=== PATIENT | male | born 1940 | race African-American/Black ===

== ENCOUNTER 2016-10-17 12:17 | Inpatient (IN) ==
[2016-10-17] MEDS ORDERED: ASPIRIN 300 MG SUPP RECTAL STA (12:46)
--- NOTE | 2016-10-17 12:46 | Emergency Department Note ---
Kelly Bianchi Hilary, am scribing for, and in the presence of, Cheo Antunez MD 12: 39. Harmony Bianchi James D, MD, personally performed the services described in this documentation, ascribed by Gwen Mendoza in my presence, and it is both accurate and complete . Arrival - Arrival Chief Complaint: Weakness Stated Complaint: weakness ED Nursing Triage Note: Brought in per EMS from [facility] for further evaluation of abnormal CT brain- revealing "stroke"--had CT done this am. Was inpatient at [facility] with diagnoses of Cropwell Palsy. +slurred speech-- staff reports is not new. +equal digital photographer/strength to upper and lower extremities. Mode of Arrival: Stretcher Limitations: No Limitations Source: Patient, RN Notes Reviewed Time Seen by Provider: 10/17/16 12:29 - History of Present Illness HPI Narrative: Pt is a 76 y/o male brought to the ED via EMS for further evaluation of abnormal CT brain. Pt had CT done this AM and it revealed a stroke. Was an inpatient at [facility] with diagnoses of Cropwell Palsy. Staff reports slurred speech is not new. Pt denies any pain. No other complaints or problems stated in the ED. Onset (ago): hour(s) Severity: mild Severity scale (1-10): 1 Allergies/Adverse Reactions: Allergies Allergy/AdvReac Type Severity Reaction Status Date / Time acetaminophen [From Tylenol] Allergy Mild RASH Verified 10/17/16 12:25 Penicillins Allergy Mild UNRESPONSIV Verified 10/17/16 12:25 E Home Medications: Home Medications Medication Instructions Recorded Confirmed Type Acyclovir Cap/Tab [Zovirax Cap/Tab] 800 mg PO TID #14 tablet 09/23/16 09/23/16 Rx Aspirin EC Tab 81 mg PO DAILY #30 tablet 09/23/16 09/23/16 Rx Atenolol [Tenormin] 50 mg PO DAILY #30 tablet 09/23/16 09/23/16 Rx Insulin NPH/Regular 70/30 [HumuLIN 25 unit SUBCUT AC SUPPER #1 unit 09/23/1606/06 Rx 70/30] Insulin NPH/Regular 70/30 [HumuLIN 30 unit SUBCUT AC BREAKFAST #1 unit 09/23/16 09/23/16 Rx 70/30] Insulin Regular [HumuLIN R] See Protocol SUBCUT ACHS unit 09/23/16 09/23/16 Rx Quinapril [Accupril] 40 mg PO BID #30 tablet 09/23/16 09/23/16 Rx Rosuvastatin [Crestor] 40 mg PO BEDTIME #30 tablet 09/23/16 09/23/16 Rx amLODIPine [Norvasc] 10 mg PO DAILY #30 09/23/16 09/23/16 Rx metFORMIN [Glucophage] 850 mg PO BID #60 09/23/16 09/23/16 Rx Review of System - Review of System 12 point system: reviewed and no additional remarkable complaints except as stated - Review of System Constitutional: Present: other (abnormal CT). Absent: fever Neurological: Present: other (Abnormal CT) Medical,Surgical,& Family Hx - Medical History Cardio: History of: Hypertension Neurology: History of: Neurological Problems (Fulton's palsy) HEENT: History of: Eye Problem (reading glasses), HEENT Problems (Cataracts removed both eyes.) Endocrine: History of: Diabetes Mellitus (IDDM) Rheumatology: History of;: Gout Musculoskeletal: History of: Musculoskeletal Problems (Osteoarthritis) No history of: Amputation - Surgical History Cardiac Surgeries: Patient Denies: Femoral-Popliteal Bypass Graft, Cardiac Catheterization, Cardiac Surgery, Carotid Endarterectomy, Internal Defibrillator, Vascular Access Devices Thoracic Surgeries: Patient denies;: Kidney (Renal Surgery), Lithotripsy, Nephrectomy Comment Only: Organ Transplant (Skin graft from left thigh) Neurologic Surgeries: Patient denies: Neurologic Surgery HEENT Surgeries: Surgical HX of: Eye Surgery (Cataracts both eyes removed.) Patient denies: Carotid Endarterectomy, Tonsilectomy & Adenoidectomy Abdominal Surgeries: Patient denies: Abdominal Surgery, Appendectomy, Cholecystectomy, Colonoscopy , Gastric Bypass Surgery, EGD, Hernia Repair, Splenectomy Reproductive Surgeries: Patient denies;: Breast Surgery, Cystoscopy, Genitourinary Surgery, Prostate Surgery, Vasectomy Orthopedic Surgeries: Patient denies;: Implanted Devices, Orthopedic Surgery, Spinal Surgery, Total Hip Replacement, Total Knee Replacement - Family History Family History: Reports;: Family Cancer, Family Diabetes - Social History Smoking Status: Former smoker Frequency of Alcohol Use: Unknown Type of Drug Use: Unknown Exam Physical Examination: GENERAL: This is a well-nourished, well-developed male in no apparent distress. VITAL SIGNS: Temperature: 97.7 Pulse: 70 Respiratory: 20 Blood Pressure: 122 /61 O2Sat: 97 HEENT: Head is normocephalic and atraumatic. Pupils are equally round and reactive to light. Extraocular movement are intact. Oropharynx is benign with moist mucous membranes. NECK: Neck is soft and supple without tenderness. There are no masses. There is no lymphadenopathy. LUNGS: Lungs are clear to auscultation bilaterally. Chest rises symmetrically. There is no chest wall tenderness. CV: Heart is regular rate and rhythm without murmurs, rubs, or gallops. ABDOMEN: Abdomen is soft, non-tender to palpation. There are no abnormal masses palpated. There is no organomegaly. Bowel sounds are present and active. SKIN: Skin is warm and dry. No rash. EXTREMITIES: Patient has full range of motion without tenderness. There is no pedal edema. NEUROLOGIC: Awake alert and oriented. Cranial nerves II 12 are grossly intact with the exception of right facial nerve which reveals a dense peripheral nerve weakness. Fulton's phenomenon is present on the right. Tongue deviates to the right of the midline. Motor function is 4/5 in all extremities both extensors and flexors. Deep tendon reflexes are 2+ bilaterally equal. Vital Signs: Vital Signs Temperature 97.7 F 10/17/16 12:26 Pulse Rate 70 10/17/16 12:26 Respiratory Rate 20 10/17/16 12:26 Blood Pressure 122/61 10/17/16 12:26 O2 Sat by Pulse Oximetry 97 10/17/16 12:17 Course Course Narrative: Patient is exceedingly debilitated and is not a good candidate for Plavix or Coumadin. - Consultations Consultation #1: Discussed with Dr. Bolton child welfare consultant for Dr. Snider. Time: 12:46 Results - Diagnostic Findings Procedure: CT: image reviewed by me (CT head reveals possible acute versus subacute cerebellar infarct.) Disposition Clinical Impression: Debility, Right-sided Fulton's palsy, Diabetes mellitus, Essential hypertension, Heme positive stool Case discussed with: patient
[2016-10-17] MEDS ORDERED: ASPIRIN 300 MG SUPP RECTAL ONE (13:12)
[2016-10-17] MEDS ORDERED: PANTOPRAZOLE 40 MG VIAL IV STA (13:20)
[2016-10-17] MEDS ORDERED: PANTOPRAZOLE 40 MG VIAL IV ONE (13:29)
[2016-10-17 13:48] LABS: Basophils % 0.2 % (0.0-0.8); Eosinophils # 0.1 10*3/uL (0.0-0.87); Eosinophils % 0.6 % (0.00-10.9); Hematocrit 29.1 VOL% (42.0-52.0); Hemoglobin 9.5 GM/DL (14.0-18.0); Immature Granulocytes % 0.4 %; Immature Granulocytes Absolute 0.08 #; Lymphocytes # 2.1 10*3/uL (1.4-4.0); Lymphocytes % 11.1 % (21.2-54.2); Mean Corpuscular HGB Conc 32.6 GM/DL (32-36); Mean Corpuscular Hemoglobin 26 PG (27-34); Mean Corpuscular Volume 80.4 FL (87-102); Mean Platelet Volume 9.9 FL (9.6-12.0); Monocytes # 1.9 10*3/uL (0.11-0.8); Monocytes % 10.1 % (1.7-12.7); Neutrophils # 14.4 10*3/uL (1.4-7.4); Neutrophils % 77.6 % (38.7-73.9); Platelet Count 395 T/CUMM (130-400); Red Blood Count 3.62 MC/CUMM (3.8-5.5); Red Cell Distribution Width 12.4 % (9.3-17.3); White Blood Count 18.6 T/CUMM (4-12)
[2016-10-17 14:10] LABS: INR 1.2; PT Patient Result 12.7 SECS; Partial Thromboplastin Time 36.6 SECS (0-40)
[2016-10-17] MEDS ORDERED: GLUCAGON 1 MG VIAL IM PRN (14:10)
[2016-10-17] MEDS ORDERED: SODIUM CHLORIDE 0.9% 1,000 ML IV SCH (14:10)
[2016-10-17] MEDS ORDERED: ONDANSETRON 4 MG/2 ML VIAL IV PRN (14:10)
[2016-10-17] MEDS ORDERED: DEXTROSE 50% 25 GM/50 ML SYRINGE IV PRN (14:10)
[2016-10-17 14:16] LABS: Albumin 2.3 G/DL (3.4-5.0); Bilirubin,Total 0.6 MG/DL (0.2-1.0); Calcium 9.5 MG/DL (8.5-10.1); Osmolality,Calculated 295.8 MOS/KG (273-304); Potassium 4.3 MMOL/L (3.5-5.1); Total Protein 6.9 G/DL (6.4-8.3)
--- NOTE | 2016-10-17 15:10 | Family Practice History&Phys ---
Assessment and Plan (1) Stroke Status: Acute Assessment and plan: subacute vs acute infarct, will get MRI brain non contrast, carotid Doppler, echocardiogram, patient admission discussed with , will add consult the neurology. Admitted under observation. 2. Will get swallow eval, 3.DM , continue monitoring fingersticks glucose, sliding scale insulin, 5.HTN controlled , hold bp meds for now, Current Visit: No (2) Debility Status: Chronic Current Visit: Yes (3) Diabetes mellitus Status: Chronic Current Visit: Yes (4) Essential hypertension Status: Chronic Current Visit: Yes History of Present Illness Chief complaint: weakness, new CT head findings,from [facility] History of present illness: Mr. Schneider is a 76 year old male Brought from [facility], is at the [facility] since 3+ weeks, Consultants on case : Neurologist, pt admitted for CVA, Has h/o DM, HTN , Hyperlipidemia,debility, pt seen and examined on fourth Floor ,spouse at bedside.history obtained from the spouse, pt has debility, usually cannot ambulate well as per her,has fulton's palsy rt, has rt sided weakness as well as rt face weakness,has also slurry speech ?present symptoms since 3-4 weeks as per spouse, no fever , nausea, vomiting , chest pain , SOB , headaches or dizziness, Home Medications Medication Instructions Recorded Confirmed Type Acyclovir Cap/Tab [Zovirax Cap/Tab] 800 mg PO TID #14 tablet 09/23/16 10/17/16 Rx Insulin NPH/Regular 70/30 [HumuLIN 25 unit SUBCUT AC SUPPER #1 unit 09/23/16 Rx 70/30] Insulin NPH/Regular 70/30 [HumuLIN 30 unit SUBCUT AC BREAKFAST #1 unit 09/23/16 10/17/16 Rx 70/30] Quinapril [Accupril] 40 mg PO BID #30 tablet 09/23/16 10/17/16 Rx Rosuvastatin [Crestor] 40 mg PO BEDTIME #30 tablet 09/23/16 10/17/16 Rx amLODIPine [Norvasc] 10 mg PO DAILY #30 09/23/16 10/17/16 Rx Aspirin EC Tab 81 mg PO DAILY 10/17/16 10/17/16 History Atenolol [Tenormin] 50 mg PO DAILY 10/17/16 10/17/16 History Insulin Regular [HumuLIN R] See Protocol SUBCUT ACHS 10/17/16 10/17/16 History metFORMIN [Glucophage] 850 mg PO BID 10/17/16 10/17/16 History Allergies Allergy/AdvReac Type Severity Reaction Status Date / Time acetaminophen [From Tylenol] Allergy Mild RASH Verified 10/17/16 12:25 Penicillins Allergy Mild UNRESPONSIV Verified 10/17/16 12:25 E - Constitutional Constitutional: Present: as per HPI - EENT Eyes: Present: as per HPI Ears: Present: as per HPI Nose, mouth and throat: Present: as per HPI - Cardiovascular Cardiovascular: Present: as per HPI - Respiratory Respiratory: Present: as per HPI - Gastrointestinal Gastrointestinal: Present: as per HPI - Genitourinary Genitourinary: Present: as per HPI - Musculoskeletal Musculoskeletal: Present: as per HPI Medical,Surgical,& Family Hx - Medical History Cardio: History of: Hypertension Neurology: History of: Neurological Problems (Fulton's palsy) HEENT: History of: Eye Problem (reading glasses), HEENT Problems (Cataracts removed both eyes.) Endocrine: History of: Diabetes Mellitus (IDDM) Rheumatology: History of;: Gout Musculoskeletal: History of: Musculoskeletal Problems (Osteoarthritis) No history of: Amputation - Surgical History Cardiac Surgeries: Patient Denies: Femoral-Popliteal Bypass Graft, Cardiac Catheterization, Cardiac Surgery, Carotid Endarterectomy, Internal Defibrillator, Vascular Access Devices Thoracic Surgeries: Patient denies;: Kidney (Renal Surgery), Lithotripsy, Nephrectomy Comment Only: Organ Transplant (Skin graft from left thigh) Neurologic Surgeries: Patient denies: Neurologic Surgery HEENT Surgeries: Surgical HX of: Eye Surgery (Cataracts both eyes removed.) Patient denies: Carotid Endarterectomy, Tonsilectomy & Adenoidectomy Abdominal Surgeries: Patient denies: Abdominal Surgery, Appendectomy, Cholecystectomy, Colonoscopy , Gastric Bypass Surgery, EGD, Hernia Repair, Splenectomy Reproductive Surgeries: Patient denies;: Breast Surgery, Cystoscopy, Genitourinary Surgery, Prostate Surgery, Vasectomy Orthopedic Surgeries: Patient denies;: Implanted Devices, Orthopedic Surgery, Spinal Surgery, Total Hip Replacement, Total Knee Replacement - Family History Family History: Reports;: Family Cancer, Family Diabetes - Social History Smoking Status: Former smoker Frequency of Alcohol Use: Unknown Type of Drug Use: Unknown Exam - Constitutional Vitals: Period Temp Pulse Resp BP Sys/Tatum Pulse Ox Last 24 Hr 97.7 F-97.7 F 70-70 18-20 122-122/61-61 97 Exam: Examination: GENERAL: Awake follows commands, in no acute distress , male pt, lying in the bed, HEENT: rt eye lagopthalmous, dry cornea poor oral , dental hygeine, with halitosis, NECK: Neck is supple. No JVD. No carotid bruit. No thyromegaly. CVS: Regular rate and rhythm. S1 and S2 are normal. RESPIRATORY: Clear to ausculation bilaterally , No wheezes, rales or rhonchi. ABDOMEN: Soft and nontender. Bowel sounds are present. No hepatosplenomegaly. EXT: No edema. FINAL INSPECTOR: Patient is awake, speech slurry,rt eye lagopthalmous, loss of rt nasolabial fold, deviation of angle of mouth to left, strength 3/5 Rt UE, 4/5 Lt UE, 2/5 rt LE, 3/5 lt LE Results - Labs CBC & BMP: 10/17/16 13:14 10/17/16 13:14 Lab Results: I have reviewed the past 24 hour labs - Diagnostic Findings Procedure: CT: report reviewed by me, X-ray: report reviewed by me Quality Measures - Stroke Presenting Symptoms: Right hemiparesis Symptom Onset Unknown: Yes
--- NOTE | 2016-10-17 17:07 | Magnetic Resonance Report ---
Exam: MR head/brain wo con Date: 10/17/2016 3:50 PM Comparison: 09/19/2016, CT brain 10/17/2016 Indication: CVA, alteration of consciousness Technique:[Multiple acquisitions were obtained including sagittal T1, coronal T2, axial T1, T2, FLAIR, GRE, and T1 scans. Scans were obtained on a 1.5 Mitzy magnet.] Findings: The ventricles remain normal in size with no midline displacement. The pituitary has normal appearance and the cerebellar tonsils are normal in their location. 17 mm area restricted diffusion in the right cerebellar peduncle/opal. 7 mm area of restricted diffusion in the right occipital lobe with 2 mm area restricted diffusion in the left occipital lobe. 10 mm area restricted diffusion in the genu the corpus callosum at midline. 3 mm and 6 mm area restricted diffusion in the left centrum semiovale location. Chronic appearing right basal ganglia infarcts with chronic appearing hemosiderin deposition consistent with remote hemorrhage. No definite acute hemorrhage, mass, or extracerebral collection. Persistent atrophy and diffuse FLAIR/T2 hyperintensities. Persistent opacification of the right maxillary sinus with findings extending into the right ethmoid air cells and right frontal sinus. No acute findings in the orbits, temporal bones, or wales of Narvaez. Impression: Multiple interval acute to subacute ischemic infarctions involving the right cerebellar peduncle/opal, right occipital lobe, left occipital lobe, genu of the corpus callosum, and left centrum semiovale location. Multiple infarcts suggest possible embolic phenomenon. Chronic appearing right basal ganglia infarcts with hemosiderin deposition consistent with remote hemorrhage within these findings. No acute hemorrhage identified. Persistent significant right sinusitis. Because of the unilateral nature, follow-up is recommended to document clearing and exclude additional underlying pathology/mass. PROCEDURE INTERPRETED AT [facility] DEPARTMENT OF RADIOLOGY Final Report Signed by: Dr. Savita Perez
[2016-10-17] MEDS: INSULIN LISPRO 100 UNIT/ML SUBCUT SCH ×2 (18:11→20:51)
[2016-10-17] MEDS: SODIUM CHLORIDE 0.9% 1,000 ML IV SCH (19:28)
[2016-10-17] MEDS ORDERED: traMADol 50 MG TABLET PO PRN (20:05)
[2016-10-17] MEDS: DOCUSATE SODIUM 100 MG CAPSULE PO SCH (20:49)
[2016-10-18 07:05] LABS: Basophils # 0.1 10*3/uL (0.0-0.2); Basophils % 0.3 % (0.0-0.8); Eosinophils # 0.2 10*3/uL (0.0-0.87); Eosinophils % 1.1 % (0.00-10.9); Hematocrit 31.6 VOL% (42.0-52.0); Hemoglobin 10.6 GM/DL (14.0-18.0); Immature Granulocytes % 0.5 %; Immature Granulocytes Absolute 0.09 #; Lymphocytes % 11.2 % (21.2-54.2); Mean Corpuscular HGB Conc 33.5 GM/DL (32-36); Mean Corpuscular Hemoglobin 27 PG (27-34); Mean Corpuscular Volume 79.6 FL (87-102); Mean Platelet Volume 9.9 FL (9.6-12.0); Monocytes # 1.5 10*3/uL (0.11-0.8); Monocytes % 8.5 % (1.7-12.7); Neutrophils # 13.8 10*3/uL (1.4-7.4); Neutrophils % 78.4 % (38.7-73.9); Platelet Count 349 T/CUMM (130-400); Red Blood Count 3.97 MC/CUMM (3.8-5.5); Red Cell Distribution Width 12.4 % (9.3-17.3); White Blood Count 17.6 T/CUMM (4-12)
[2016-10-18] MEDS: INSULIN LISPRO 100 UNIT/ML SUBCUT SCH ×4 (07:35→21:22)
[2016-10-18 07:42] LABS: Albumin 2.2 G/DL (3.4-5.0); Bilirubin,Total 0.7 MG/DL (0.2-1.0); Calcium 9.1 MG/DL (8.5-10.1); Osmolality,Calculated 294.1 MOS/KG (273-304); Potassium 4.4 MMOL/L (3.5-5.1)
--- NOTE | 2016-10-18 09:14 | Family Practice Progress Note ---
Family Practice - PN: Subj Interval history: Consultants on case : , Neurologist, will also consult Medical Practice Manager, pt admitted for CVA, Has h/o DM, HTN , Hyperlipidemia,debility, pt seen and examined on fourth floor , Accompanied by his son at bedside. lying in bed, Had breakfast this a.m. getting echo, this a.m. no fever , nausea, vomiting , chest pain , SOB , headaches or dizziness, Wearing depends, No overnight events reported by the nurse, Exam (Progress Note) - Constitutional Vitals: Period Temp Pulse Resp BP Sys/Tatum Pulse Ox Last 24 Hr 96.6 F-97.7 F 61-75 16-20 114-131/55-67 92-98 Exam: Examination: GENERAL: Awake follows commands, in no acute distress , male pt, lying in the bed, HEENT: rt eye lagopthalmous, dry cornea, poor oral , dental hygeine, with halitosis, NECK: Neck is supple. No JVD. No carotid bruit. No thyromegaly. CVS: Regular rate and rhythm. S1 and S2 are normal. RESPIRATORY: Clear to ausculation bilaterally , No wheezes, rales or rhonchi. ABDOMEN: Soft and nontender. Bowel sounds are present. No hepatosplenomegaly. EXT: No edema. PSYCHOLOGY TEACHER: Patient is awake, speech slurry,rt eye lagopthalmous, loss of rt nasolabial fold, deviation of angle of mouth to left, tip of tongue deviated to right, Strength 3/5 Rt UE, 4/5 Lt UE, 2/5 rt LE, 3/5 lt LE Results - Labs CBC & BMP: 10/18/16 06:39 10/18/16 06:39 Lab Results: I have reviewed the past 24 hour labs - Diagnostic Findings Procedure: CT: report reviewed by me, MRI: report reviewed by me Assessment and Plan (1) Stroke Status: Acute Assessment and plan: subacute vs acute infarct, patient does not qualify to get carotid Doppler, echocardiogram since the last was done 3 months ago as per the nurse. We will get an eye patch for the right eye, 2. We will get nephrology consult has elevated renal function tests, 3.DM , continue monitoring fingersticks glucose, sliding scale insulin, 5.HTN controlled , hold bp meds for now, Possible discharge in a.m., once cleared by the consultants Current Visit: Yes (2) Debility Status: Chronic Current Visit: Yes (3) Diabetes mellitus Status: Chronic Current Visit: Yes (4) Essential hypertension Status: Chronic Current Visit: Yes Quality Measures - Stroke Presenting Symptoms: Right hemiparesis Symptom Onset Unknown: Yes Specialty Discharge - Follow Up or Referrals
[2016-10-18] MEDS: DOCUSATE SODIUM 100 MG CAPSULE PO SCH ×3 (10:11→21:30)
[2016-10-18] MEDS: PANTOPRAZOLE 40 MG TABLET PO SCH (10:11)
--- NOTE | 2016-10-18 14:14 | Neurology Consult Note ---
History of Present Illness History of present illness: Mr. Schneider is a 76 year old right-handed -[place] gentleman with past medical history significant for hypertension and diabetes admitted to the hospital with right facial droop 3 weeks ago. Patient reports he was in his normal state of health till approximately 4 week ago. He stated that time he felt weak in his lower extremities and did have a fall. Patient reported that he had some walking difficulties to begin with. He did develop questionable slurred speech and facial droop on the right. Patient got to the point where he could not really stand independently and is brought in by his family for further evaluation. MRI of the brain revealed no acute abnormalities. Subsequently he was transferred to [facility] where he was getting therapy however he was not making any progress and actually started to get worse. CT scan of the brain was ordered which revealed questionable strokes. Subsequently he was transferred back to [facility] for acute care. MRI of the brain performed which revealed multiple small infarcts bilaterally in all 4 vessels distribution suggestive of embolic event. Source of embolism is not known however it does look like it is cardiac. Home Medications Medication Instructions Recorded Confirmed Type Acyclovir Cap/Tab [Zovirax Cap/Tab] 800 mg PO TID #14 tablet 09/23/16 10/17/16 Rx Insulin NPH/Regular 70/30 [HumuLIN 25 unit SUBCUT AC SUPPER #1 unit 09/23/16 Rx 70/30] Insulin NPH/Regular 70/30 [HumuLIN 30 unit SUBCUT AC BREAKFAST #1 unit 09/23/16 10/17/16 Rx 70/30] Quinapril [Accupril] 40 mg PO BID #30 tablet 09/23/16 10/17/16 Rx Rosuvastatin [Crestor] 40 mg PO BEDTIME #30 tablet 09/23/16 10/17/16 Rx amLODIPine [Norvasc] 10 mg PO DAILY #30 09/23/16 10/17/16 Rx Aspirin EC Tab 81 mg PO DAILY 10/17/16 10/17/16 History Atenolol [Tenormin] 50 mg PO DAILY 10/17/16 10/17/16 History Insulin Regular [HumuLIN R] See Protocol SUBCUT ACHS 10/17/16 10/17/16 History metFORMIN [Glucophage] 850 mg PO BID 10/17/16 10/17/16 History Allergies Allergy/AdvReac Type Severity Reaction Status Date / Time acetaminophen [From Tylenol] Allergy Mild RASH Verified 10/17/16 12:25 Penicillins Allergy Mild UNRESPONSIV Verified 10/17/16 12:25 E 12 point system: reviewed and no additional remarkable complaints except as stated Medical,Surgical,& Family Hx - Medical History Cardio: History of: Hypertension Neurology: History of: Neurological Problems (Fulton's palsy) HEENT: History of: Eye Problem (reading glasses), HEENT Problems (Cataracts removed both eyes.) Endocrine: History of: Diabetes Mellitus (IDDM) Rheumatology: History of;: Gout Musculoskeletal: History of: Musculoskeletal Problems (Osteoarthritis) No history of: Amputation - Surgical History Cardiac Surgeries: Patient Denies: Femoral-Popliteal Bypass Graft, Cardiac Catheterization, Cardiac Surgery, Carotid Endarterectomy, Internal Defibrillator, Vascular Access Devices Thoracic Surgeries: Patient denies;: Kidney (Renal Surgery), Lithotripsy, Nephrectomy Comment Only: Organ Transplant (Skin graft from left thigh) Neurologic Surgeries: Patient denies: Neurologic Surgery HEENT Surgeries: Surgical HX of: Eye Surgery (Cataracts both eyes removed.) Patient denies: Carotid Endarterectomy, Tonsilectomy & Adenoidectomy Abdominal Surgeries: Patient denies: Abdominal Surgery, Appendectomy, Cholecystectomy, Colonoscopy , Gastric Bypass Surgery, EGD, Hernia Repair, Splenectomy Reproductive Surgeries: Patient denies;: Breast Surgery, Cystoscopy, Genitourinary Surgery, Prostate Surgery, Vasectomy Orthopedic Surgeries: Patient denies;: Implanted Devices, Orthopedic Surgery, Spinal Surgery, Total Hip Replacement, Total Knee Replacement - Family History Family History: Reports;: Family Cancer, Family Diabetes - Social History Smoking Status: Former smoker Frequency of Alcohol Use: Unknown Type of Drug Use: Unknown Exam - Constitutional Vitals: Period Temp Pulse Resp BP Sys/Tatum Pulse Ox Last 24 Hr 96.6 F-97.5 F 60-75 16-20 114-134/55-67 92-98 Exam: GENERAL: Patient is in no acute distress. NECK: Neck is supple. There is no JVD. No carotid bruits present. No thyroid masses. CVS: First and second heart sounds are normal. There is no S3 present. Regular rate and rhythm. RESPIRATORY: Lungs are clear to auscultation without any rales or rhonchi. ABDOMEN: Soft and non-tender. Bowel sounds are present. There is no hepatosplenomegaly. EXT: There is no palpable edema. Peripheral pulses are present. Skin: No rashes Central Nervous system: General: Alert, awake Speech: Fluent Comprehension: Intact and normal Facial expressions: Normal Cranial Nerves: CN1/Olfactory: Normal CN II/ Optic: Normal, Visual Gonzales unreliable CN III, and : JANE & EOMI CN V: Normal & intact CN VII: Right lower motor neuron type facial weak CNVIII: Normal CN XI/X/XI/XII: Intact and Normal Motor: Bulk and Tone is normal. Strength in the right 3-4/5 Strength in the left 3-4/5 Sensory: Grossly intact for all the modalities of PP, LT and temp sense Reflexes: 1+ and symmetrical Cerebellar function: Slow finger to nose and heel to díaz testing. Toes: Equivocal Gait: Not tested at this time Results - Labs CBC & BMP: 10/18/16 06:39 10/18/16 06:39 Assessment and Plan (1) Acute CVA (cerebrovascular accident) Status: Acute Assessment and plan: Most likely cardio embolic event causing acute CVA. He has multiple acute strokes in all 4 vessels distribution. We will go ahead and start Xarelto 20 mg po daily Echo consult TMR Current Visit: Yes Specialty Discharge - Follow Up or Referrals
[2016-10-18] MEDS ORDERED: RIVAROXABAN 20 MG TABLET PO SCH (17:00)
[2016-10-18] MEDS: SODIUM CHLORIDE 0.9% 1,000 ML IV SCH (18:21)
--- NOTE | 2016-10-18 18:24 | ECHO Report ---
Robert Schnieder Exam Date: 10/18/2016 09:13 Referring Physician: Technologist: Tejal Adkins Age: 76 Ht (in): 72 Wt (lb): 154 Gender: M Exam Location: [facility] Echo Indications: Essential (primary) hypertension, CVA, Diabetes, Debility BP: 131 / 67 HR: 64 Rhythm: Sinus Technical Quality: IMPRESSIONS Left ventricular ejection fraction is estimated at 50-55 %. Mild concentric left ventricular hypertrophy with mild diastolic dysfunction. Mild bilateral atrial enlargement. Mildly thickened mitral valve with mild mitral regurgitation. Trace tricuspid valve regurgitation. MEASUREMENTS (Male / Female) Normal Values 2D ECHO LV Diastolic Diameter PLAX 5.0 cm 4.2 - 5.9 / 3.9 - 5.3 cm LV Systolic Diameter PLAX 2.7 cm LV Fractional Shortening PLAX 45.5 % IVS Diastolic Thickness 1.0 cm 0.6 - 1.0 / 0.6 - 0.9 cm LVPW Diastolic Thickness 0.9 cm 0.6 - 1.0 / 0.6 - 0.9 cm Aortic Root Diameter 2.9 cm LA Systolic Diameter LX 4.2 cm 3.0 - 4.0 / 2.7 - 3.8 cm DOPPLER TR Peak Velocity 273.0 cm/s TR Peak Gradient 29.8 mmHg FINDINGS Left Ventricle Normal left ventricular cavity size. Mild concentric left ventricular hypertrophy with mild diastolic dysfunction. Left ventricular ejection fraction is estimated at 50-55 %. Right Ventricle Normal right ventricular size. Right Atrium The right atrium is mildly enlarged. Left Atrium Mildly increased left atrial size. Mitral Valve Mildly thickened mitral valve with mild mitral regurgitation. Aortic Valve Structurally normal aortic valve. Tricuspid Valve Morphologically normal tricuspid valve. Trace tricuspid valve regurgitation. Tricuspid regurgitation velocities suggest a PAP of 29.8 mmHg + RAP. Pulmonic Valve Morphologically normal pulmonic valve. Pericardium No pericardial effusion. Aorta Normal size aortic root and proximal ascending aorta. Dm Knowles (Electronically Signed) Final Date: 18 October 2016 18:22
--- NOTE | 2016-10-18 21:01 | Nephrology Consult Note ---
History of Present Illness Chief complaint: Acute renal failure History of present illness: Mr. Schneider is a 76 year old male hypertension diabetes hypercholesterolemia is 3 weeks status post a CVA had been in a rehab facility and was readmitted for further changes and is found to have subacute CVA by MRI done today. Serum creatinine noted to be up to 3.4. Approximately 9 days ago the patient's serum creatinine was noted to be 1.2. He has been on LILLIAN inhibitor there is no reports of contrast studies or any other change in medicines. Of note, the patient has had hypotensive episodes around 12 October. However, the patient does have a urinary tract infection. Nephrology is been consulted for acute renal failure. Home Medications Medication Instructions Recorded Confirmed Type Acyclovir Cap/Tab [Zovirax Cap/Tab] 800 mg PO TID #14 tablet 09/23/16 10/17/16 Rx Insulin NPH/Regular 70/30 [HumuLIN 25 unit SUBCUT AC SUPPER #1 unit 09/23/16 Rx 70/30] Insulin NPH/Regular 70/30 [HumuLIN 30 unit SUBCUT AC BREAKFAST #1 unit 09/23/16 10/17/16 Rx 70/30] Quinapril [Accupril] 40 mg PO BID #30 tablet 09/23/16 10/17/16 Rx Rosuvastatin [Crestor] 40 mg PO BEDTIME #30 tablet 09/23/16 10/17/16 Rx amLODIPine [Norvasc] 10 mg PO DAILY #30 09/23/16 10/17/16 Rx Aspirin EC Tab 81 mg PO DAILY 10/17/16 10/17/16 History Atenolol [Tenormin] 50 mg PO DAILY 10/17/16 10/17/16 History Insulin Regular [HumuLIN R] See Protocol SUBCUT ACHS 10/17/16 10/17/16 History metFORMIN [Glucophage] 850 mg PO BID 10/17/16 10/17/16 History Allergies Allergy/AdvReac Type Severity Reaction Status Date / Time acetaminophen [From Tylenol] Allergy Mild RASH Verified 10/17/16 12:25 Penicillins Allergy Mild UNRESPONSIV Verified 10/17/16 12:25 E Medical,Surgical,& Family Hx - Medical History Cardio: History of: Hypertension Neurology: History of: Neurological Problems (Fulton's palsy) HEENT: History of: Eye Problem (reading glasses), HEENT Problems (Cataracts removed both eyes.) Endocrine: History of: Diabetes Mellitus (IDDM) Rheumatology: History of;: Gout Musculoskeletal: History of: Musculoskeletal Problems (Osteoarthritis) No history of: Amputation - Surgical History Cardiac Surgeries: Patient Denies: Femoral-Popliteal Bypass Graft, Cardiac Catheterization, Cardiac Surgery, Carotid Endarterectomy, Internal Defibrillator, Vascular Access Devices Thoracic Surgeries: Patient denies;: Kidney (Renal Surgery), Lithotripsy, Nephrectomy Comment Only: Organ Transplant (Skin graft from left thigh) Neurologic Surgeries: Patient denies: Neurologic Surgery HEENT Surgeries: Surgical HX of: Eye Surgery (Cataracts both eyes removed.) Patient denies: Carotid Endarterectomy, Tonsilectomy & Adenoidectomy Abdominal Surgeries: Patient denies: Abdominal Surgery, Appendectomy, Cholecystectomy, Colonoscopy , Gastric Bypass Surgery, EGD, Hernia Repair, Splenectomy Reproductive Surgeries: Patient denies;: Breast Surgery, Cystoscopy, Genitourinary Surgery, Prostate Surgery, Vasectomy Orthopedic Surgeries: Patient denies;: Implanted Devices, Orthopedic Surgery, Spinal Surgery, Total Hip Replacement, Total Knee Replacement - Family History Family History: Reports;: Family Cancer, Family Diabetes - Social History Smoking Status: Former smoker Frequency of Alcohol Use: Unknown Type of Drug Use: Unknown Review of Systems Cardiovascular: no dyspnea, no dyspnea on exertion Respiratory: no cough, no dyspnea Exam - Vital Signs Vital signs: Period Temp Pulse Resp BP Sys/Tatum Pulse Ox Last 24 Hr 96.3 F-97.5 F 60-65 16-96 122-138/60-67 92-98 - General Appearance General appearance: well-developed, appears started age, frail EENT: ATNC Neck: supple Respiratory: clear Cardiology: no edema, regular rate, regular rhythm Gastrointestinal: normoactive bowel sounds, no tenderness, no guarding Musculoskeletal: no deformities Psychiatric: mood/affect appropriate Results - Labs CBC & BMP: 10/18/16 06:39 10/18/16 06:39 Assessment and Plan (1) Acute renal failure Status: Acute Assessment and plan: Renal ultrasound. Continue with IV fluids. Avoid nephrotoxic agents. BMP in a.m. Continue to treat urinary tract infection. LILLIAN inhibitor has been stopped. Avoid diuretics at this time. Current Visit: Yes (2) Urinary tract infection Status: Acute Assessment and plan: Agree with antibiotics. Current Visit: Yes (3) Acute CVA (cerebrovascular accident) Status: Acute Current Visit: Yes (4) Right-sided Fulton's palsy Status: Chronic Current Visit: Yes (5) Stroke Status: Acute Current Visit: Yes (6) Debility Status: Chronic Current Visit: Yes (7) Essential hypertension Status: Chronic Current Visit: Yes Specialty Discharge - Follow Up or Referrals
[2016-10-18] MEDS: APIXABAN 5 MG TABLET PO SCH (21:24)
[2016-10-19 04:27] VITALS: BP 131/66
[2016-10-19 07:59] LABS: Basophils % 0.3 % (0.0-0.8); Eosinophils # 0.4 10*3/uL (0.0-0.87); Eosinophils % 3.2 % (0.00-10.9); Hematocrit 31.8 VOL% (42.0-52.0); Hemoglobin 10.5 GM/DL (14.0-18.0); Immature Granulocytes % 0.4 %; Immature Granulocytes Absolute 0.05 #; Lymphocytes # 1.6 10*3/uL (1.4-4.0); Lymphocytes % 12.3 % (21.2-54.2); Mean Corpuscular Hemoglobin 27 PG (27-34); Mean Corpuscular Volume 80.5 FL (87-102); Mean Platelet Volume 9.4 FL (9.6-12.0); Monocytes # 1.2 10*3/uL (0.11-0.8); Neutrophils # 9.6 10*3/uL (1.4-7.4); Neutrophils % 74.8 % (38.7-73.9); Platelet Count 356 T/CUMM (130-400); Red Blood Count 3.95 MC/CUMM (3.8-5.5); Red Cell Distribution Width 12.4 % (9.3-17.3); White Blood Count 12.8 T/CUMM (4-12)
--- NOTE | 2016-10-19 08:26 | Ultrasound Report ---
History: Acute renal failure Date: 10/19/2016 Study: Renal ultrasound bilateral, kidneys only Comparison exam: Abdominal ultrasound May 04, 2006 Real-time ultrasound images are captured and archived. The right kidney measures 11.6 x 5.2 x 5.2 cm; left kidney measures 10.3 x 5.6 x 6.2 mm. The renal parenchyma is hyperechoic to the hepatic parenchyma compatible with some mild infiltrating and/or fibrosing medical renal parenchymal disease. There is no hydronephrosis or abnormal perinephric fluid. Impression: Medical renal parenchymal disease PROCEDURE INTERPRETED AT [facility] DEPARTMENT OF RADIOLOGY Final Report Signed by: Dr. Marija Watson
[2016-10-19 08:44] LABS: Calcium 8.9 MG/DL (8.5-10.1); Osmolality,Calculated 303.7 MOS/KG (273-304)
[2016-10-19] MEDS: INSULIN LISPRO 100 UNIT/ML SUBCUT SCH ×2 (08:45→11:33)
--- NOTE | 2016-10-19 09:21 | Discharge Summary ---
Hospital Course - Hospital Course Hospital Course: Pt Was at [facility] Consultants on case : Neurologist, ivory carver pt admitted for CVA, Brought from [facility], for abnormal CT head Has h/o DM, HTN , Hyperlipidemia,debility, History was obtained from patient, spouse. Was transferred from [facility] for abnormal CT which was done because he was noted to have new weakness, They reported till approximately 4 week ago he was a relatively healthy. Had walking difficulties to begin with, which got progressively worse, and a fall once, slurred speech and facial droop on the right(Fulton's palsy). MRI of the brain performed which revealed multiple small infarcts bilaterally in all 4 vessels distribution suggestive of embolic event, possibly cardiac in origin patient did not qualify to get carotid Doppler, echocardiogram since the last was done 3 months ago as per the nurse. Eliquis 5 milligrams p.o. twice daily was added. Nephrology was consulted, his renal function being abnormal compared with his baseline. Renal ultrasound was done, with Impression: Medical renal parenchymal disease. PT/OT was consulted, patient was stable during the hospital stay, no new weakness or worsening of weakness noted. Diabetes controlled on SS insulin, hypertension controlled, blood pressure meds were held, because of his stroke. Patient was discharged to [facility] rehab, and was informed about his abnormal renal function tests Diagnosis - Discharge Diagnosis (1) Stroke Status: Acute (2) Debility Status: Chronic (3) Diabetes mellitus Status: Chronic (4) Essential hypertension Status: Chronic Specialty Discharge - Follow Up or Referrals Discharge Plan - Discharge Data Disposition: Disch/er- Rehab Fac Condition at Discharge: Stable Discharge Diet: other (diabetic full liquid to soft diet) Activity: as per physical therapy - Discharge Medications New Pantoprazole Tab [Protonix Tab] 40 mg PO DAILY #30 tablet Apixaban [Eliquis] 5 mg PO BID #60 tablet Ciprofloxacin Tab [Cipro Tab] 500 mg PO DAILY #10 tablet Continue Insulin NPH/Regular 70/30 [HumuLIN 70/30] 25 unit SUBCUT AC SUPPER #1 unit amLODIPine [Norvasc] 10 mg PO DAILY #30 Insulin Regular [HumuLIN R] See Protocol SUBCUT ACHS Acyclovir Cap/Tab [Zovirax Cap/Tab] 800 mg PO TID #14 tablet Insulin NPH/Regular 70/30 [HumuLIN 70/30] 30 unit SUBCUT AC BREAKFAST #1 unit Rosuvastatin [Crestor] 40 mg PO BEDTIME #30 tablet Discontinued Quinapril [Accupril] 40 mg PO BID #30 tablet Atenolol [Tenormin] 50 mg PO DAILY Aspirin EC Tab 81 mg PO DAILY metFORMIN [Glucophage] 850 mg PO BID - Follow Up or Referral - Forms/Instructions Instructions: Ischemic Stroke (DC) Additional Discharge Instructions: TO REPEAT BMP TOMORROW ,and ADVISED BY THE PHYSICIAN IN CHARGE,HAS HIGH RFTs Exam - Constitutional Vitals: Period Temp Pulse Resp BP Sys/Tatum Pulse Ox Last 24 Hr 96.3 F-97.3 F 60-63 18-96 131-138/65-67 91-98 Exam: Examination: GENERAL: Awake follows commands, in no acute distress , male pt, lying in the bed, HEENT: rt eye lagopthalmous, dry cornea, right eye with eye patch. poor oral , dental hygeine, with halitosis, NECK: Neck is supple. No JVD. No carotid bruit. No thyromegaly. CVS: Regular rate and rhythm. S1 and S2 are normal. RESPIRATORY: Clear to ausculation bilaterally , No wheezes, rales or rhonchi. ABDOMEN: Soft and nontender. Bowel sounds are present. No hepatosplenomegaly. Wearing depends EXT: No edema. RESEARCH LAB ASSISTANT: Patient is awake, speech slurry,rt eye lagopthalmous, loss of rt nasolabial fold, deviation of angle of mouth to left, tip of tongue deviated to right, Strength 3/5 Rt UE, 4/5 Lt UE, 2/5 rt LE, 3/5 lt LE Discharge Results Procedures and tests throughout hospitalization: Pending Orders 10/17/16 13:03 Urinalysis Stat Labs on day of discharge: Labs from last 24 hours 10/19/16 10/19/16 10/18/16 07:49 07:49 11:32 WBC 12.8 H RBC 3.95 Hgb 10.5 L Hct 31.8 L MCV 80.5 L MCH 27 MCHC 33.0 RDW 12.4 Plt Count 356 MPV 9.4 L Neut % (Auto) 74.8 H Lymph % (Auto) 12.3 L Rogers % (Auto) 9.0 Eos % (Auto) 3.2 Baso % (Auto) 0.3 Neut # (Auto) 9.6 H Lymph # (Auto) 1.6 Rogers # (Auto) 1.2 H Eos # (Auto) 0.4 Baso # (Auto) 0.0 Immature Gran % 0.4 Nucleated RBC % 0.0 Immature Gran # 0.05 Nucleated RBCs # 0.00 Immature Plt Fraction 0.0 Sodium 145 Potassium 4.0 Chloride 110 H Carbon Dioxide 28 Anion Gap 11.0 BUN 55 H Creatinine 3.80 H GFR Calculation 18 BUN/Creatinine Ratio 14.00 Glucose 125 H POC Glucose 197 H Calculated Osmolality 303.7 Calcium 8.9 - Imaging and Cardiology Procedure: Chest x-ray: report reviewed by me, CT: report reviewed by me, MRI: report reviewed by me, Ultrasound: report reviewed by me DS: Provider Date of admission: 10/18/16 12:55 Primary care physician: . No PCP Attending physician on admission: Barbara Bolton MD Consults: 10/17/16 14:10 Consult to Case Mgmt/Social Srvs [CONS] Routine Reason for Case Mgmt/Social Srvs: Discharge Planning Consult to Physician [CONS] Routine Comment: Consulting Provider: 10/17/16 15:22 Consult to Dietitian [CONS] Routine Reason for Dietitian: Dietary Consult 10/17/16 18:51 Consult to Physician [CONS] Routine Comment: Consulting Provider: Franklyn Clark Consulting Provider Notified: Yes When should Consulting Provider be notified: Now Consult to Specialist Group: Neurology When should Consulting Provider be notified: Now Person Notified: JUJU Date Notified: 10/18/16 Time Notified: 13:12 10/18/16 11:29 Consult to Physician [CONS] Routine Comment: Elevated Renal Function tests Consulting Provider: Naresh Ramesh Jr. When should Consulting Provider be notified: Now Consult to Specialist Group: Nephrology When should Consulting Provider be notified: Now Person Notified: ATIYA Date Notified: 10/18/16 Time Notified: 13:23 10/18/16 14:36 Consult to Occupational Therapy [CONS] Routine Reason for Occupational Therapy: Evaluate and Treat Consult to Physical Therapy [CONS] Routine Reason for Physical Therapy: Evaluate and Treat Discharging clinician: Babrara Bolton MD
[2016-10-19] MEDS: APIXABAN 5 MG TABLET PO SCH (11:09)
[2016-10-19] MEDS: DOCUSATE SODIUM 100 MG CAPSULE PO SCH (11:09)
[2016-10-19] MEDS: PANTOPRAZOLE 40 MG TABLET PO SCH (11:09)
--- NOTE | 2016-10-19 11:20 | Nephrology Progress Note ---
Nephrology - PN: Subj Interval history: Patient is resting comfortably no acute changes. Serum creatinine is noted be 3.8. No shortness of breath or chest pain. He has been accepted back to [facility] today. Exam (PN)-Nephrology - Vital Signs Vital signs: Period Temp Pulse Resp BP Sys/Tatum Pulse Ox Last 24 Hr 96.3 F-97.3 F 60-63 18-96 131-138/65-67 91-98 - General Appearance General appearance: well-developed, fatigue EENT: ATNC Neck: supple Respiratory: clear Cardiology: no edema, regular rate, regular rhythm Gastrointestinal: normoactive bowel sounds, no tenderness Psychiatric: cooperative - Lab 10/19/16 07:49 10/19/16 07:49 Most recent lab results Calcium 8.9 MG/DL (8.5-10.1) 10/19/16 07:49 Assessment and Plan (1) Acute renal failure Status: Acute Assessment and plan: Continue with IV fluids. Avoid nephrotoxic agents. BMP in a.m. Continue to treat urinary tract infection. LILLIAN inhibitor has been stopped. Avoid diuretics at this time. Current Visit: Yes (2) Urinary tract infection Status: Acute Assessment and plan: Agree with antibiotics. Current Visit: Yes (3) Acute CVA (cerebrovascular accident) Status: Acute Current Visit: Yes (4) Right-sided Fulton's palsy Status: Chronic Current Visit: Yes (5) Stroke Status: Acute Current Visit: Yes (6) Debility Status: Chronic Current Visit: Yes (7) Essential hypertension Status: Chronic Current Visit: Yes Specialty Discharge - Follow Up or Referrals
[2016-10-19] MEDS: SODIUM CHLORIDE 0.9% 1,000 ML IV SCH (13:34)
== END 2016-10-19 13:35 | DRG 65 ==
LOC: EDBD → EDUNIT# → N.ED 12:17 → N.EDINP 12:17 → N.4E 14:05
PROVIDERS: ADMIT Family Medicine; ATTEND Family Medicine

== ENCOUNTER 2016-10-22 17:11 | Inpatient (IN) ==
--- NOTE | 2016-10-22 19:00 | Emergency Department Note ---
Arrival - Arrival Chief Complaint: Altered Mental Status Stated Complaint: altered mental status ED Nursing Triage Note: Brought in per EMS from [facility] with c/o altered mental status prior to arrival with hypotension 65/41. Awake and alert to name and place. Denies complaints. Mode of Arrival: Stretcher Time Seen by Provider: 10/22/16 18:18 - History of Present Illness HPI Narrative: This is a 76-year-old male of descent who history of type 2 diabetes hypertension, hyperlipidemia, weakness from previous stroke thought to be due to atrial fibrillation for which she was started on Eliquis who is in the [facility] for rehab for a recent stroke who was today found to have hypotension and altered mental status. Allergies/Adverse Reactions: Allergies Allergy/AdvReac Type Severity Reaction Status Date / Time acetaminophen [From Tylenol] Allergy Mild RASH Verified 10/17/16 12:25 Penicillins Allergy Mild UNRESPONSIV Verified 10/17/16 12:25 E Home Medications: Home Medications Medication Instructions Recorded Confirmed Type Acyclovir Cap/Tab [Zovirax Cap/Tab] 800 mg PO TID #14 tablet 09/23/16 10/19/16 Rx Insulin NPH/Regular 70/30 [HumuLIN 25 unit SUBCUT AC SUPPER #1 unit 09/23/16 Rx 70/30] Insulin NPH/Regular 70/30 [HumuLIN 30 unit SUBCUT AC BREAKFAST #1 unit 09/23/16 10/19/16 Rx 70/30] Rosuvastatin [Crestor] 40 mg PO BEDTIME #30 tablet 09/23/16 10/19/16 Rx amLODIPine [Norvasc] 10 mg PO DAILY #30 09/23/16 10/19/16 Rx Insulin Regular [HumuLIN R] See Protocol SUBCUT ACHS 10/17/16 10/19/16 History Apixaban [Eliquis] 5 mg PO BID #60 tablet 10/19/16 10/19/16 Rx Ciprofloxacin Tab [Cipro Tab] 500 mg PO DAILY #10 tablet 10/19/16 10/19/16 Rx Pantoprazole Tab [Protonix Tab] 40 mg PO DAILY #30 tablet 10/19/16 10/19/16 Rx Review of System - Review of System Constitutional: Absent: fever, night sweats Eyes: Absent: redness, vision change Head/Ears/Nose/Throat: Absent: epistaxis, nasal drainage Respiratory: Absent: respiratory distress Cardiovascular: Absent: dyspnea on exertion, orthopnea, edema Gastrointestinal: Absent: constipation, hematemesis, melena Genitourinary male: Absent: discharge Musculoskeletal: Absent: lower back pain, leg pain Skin: Absent: change in color, change in hair/nails Neurological: Absent: numbness, paresthesias Psychiatric: Absent: suicidal thoughts, homicidal thoughts Endocrine: Absent: heat intolerance, polydipsia Hematological/Lymphatic: Absent: easy bruising, lymphadenopathy Allergic/Immunologic: Absent: urticaria, itchy eyes Medical,Surgical,& Family Hx - Medical History Cardio: History of: Hypertension Neurology: History of: Neurological Problems (Fulton's palsy) HEENT: History of: Eye Problem (reading glasses), HEENT Problems (Cataracts removed both eyes.) Endocrine: History of: Diabetes Mellitus (IDDM) Rheumatology: History of;: Gout Musculoskeletal: History of: Musculoskeletal Problems (Osteoarthritis) No history of: Amputation - Surgical History Cardiac Surgeries: Patient Denies: Femoral-Popliteal Bypass Graft, Cardiac Catheterization, Cardiac Surgery, Carotid Endarterectomy, Internal Defibrillator, Vascular Access Devices Thoracic Surgeries: Patient denies;: Kidney (Renal Surgery), Lithotripsy, Nephrectomy Comment Only: Organ Transplant (Skin graft from left thigh) Neurologic Surgeries: Patient denies: Neurologic Surgery HEENT Surgeries: Surgical HX of: Eye Surgery (Cataracts both eyes removed.) Patient denies: Carotid Endarterectomy, Tonsilectomy & Adenoidectomy Abdominal Surgeries: Patient denies: Abdominal Surgery, Appendectomy, Cholecystectomy, Colonoscopy , Gastric Bypass Surgery, EGD, Hernia Repair, Splenectomy Reproductive Surgeries: Patient denies;: Breast Surgery, Cystoscopy, Genitourinary Surgery, Prostate Surgery, Vasectomy Orthopedic Surgeries: Patient denies;: Implanted Devices, Orthopedic Surgery, Spinal Surgery, Total Hip Replacement, Total Knee Replacement - Family History Family History: Reports;: Family Cancer, Family Diabetes - Social History Smoking Status: Former smoker Frequency of Alcohol Use: None Type of Drug Use: None Exam Vital Signs: Vital Signs Temperature 98.2 F 10/22/16 17:36 Pulse Rate 68 10/22/16 17:45 Respiratory Rate 18 10/22/16 17:45 Blood Pressure 118/69 10/22/16 17:45 O2 Sat by Pulse Oximetry 95 10/22/16 17:45 - General General appearance: other (Alert but confused) - Eye Eye exam: Present: PERRL, EOMI - ENT ENT exam: Present: normal exam - Neck Neck exam: Present: normal inspection, full ROM - Chest Chest inspection: Present: normal inspection, symmetric chest wall rise - Respiratory Respiratory exam: Present: normal lung sounds bilaterally - Cardiovascular Cardiovascular exam: Present: regular rate, normal rhythm - Abdominal Exam Abdominal exam: Present: soft, normal bowel sounds - Extremities Exam Extremities exam: Present: normal inspection, full ROM - Back Exam Back exam: Present: normal inspection, full ROM - Neurological Exam Neurological exam: Present: alert, oriented X3, CN II-XII intact - Psychiatric Psychiatric exam: Present: normal affect, normal mood - Skin Skin exam: Present: warm, dry
[2016-10-22] MEDS ORDERED: SODIUM CHLORIDE 0.9% 2,000 ML IV STA (19:10)
[2016-10-22 20:01] LABS: Basophils % 0.3 % (0.0-0.8); Eosinophils # 0.3 10*3/uL (0.0-0.87); Eosinophils % 2.3 % (0.00-10.9); Hematocrit 28.1 VOL% (42.0-52.0); Hemoglobin 9.4 GM/DL (14.0-18.0); Immature Granulocytes % 0.5 %; Immature Granulocytes Absolute 0.07 #; Lymphocytes # 2.1 10*3/uL (1.4-4.0); Lymphocytes % 15.9 % (21.2-54.2); Mean Corpuscular HGB Conc 33.5 GM/DL (32-36); Mean Corpuscular Hemoglobin 26 PG (27-34); Mean Corpuscular Volume 78.5 FL (87-102); Mean Platelet Volume 9.9 FL (9.6-12.0); Monocytes % 7.8 % (1.7-12.7); Neutrophils # 9.7 10*3/uL (1.4-7.4); Neutrophils % 73.2 % (38.7-73.9); Platelet Count 401 T/CUMM (130-400); Red Blood Count 3.58 MC/CUMM (3.8-5.5); Red Cell Distribution Width 12.7 % (9.3-17.3); White Blood Count 13.2 T/CUMM (4-12)
[2016-10-22 20:22] LABS: Alanine Aminotransferase 61 U/L (16-61); Albumin 2.7 G/DL (3.4-5.0); Alkaline Phosphatase 242 U/L (45-117); Aspartate Amino Transferase 78 U/L (0-37); Blood Urea Nitrogen 91 MG/DL (7-18); Calcium 8.7 MG/DL (8.5-10.1); Glucose 52 MG/DL (74-106); Osmolality,Calculated 310.8 MOS/KG (273-304); Potassium 4.4 MMOL/L (3.5-5.1); Sodium 144 MMOL/L (136-145); Troponin I Only < 0.015 NG/ML (0.00-0.045)
--- NOTE | 2016-10-22 20:29 | CT Report ---
Exam: CT head without intravenous contrast Clinical History: 76-year-old male with altered mental status and decreased level of consciousness Technique: Axial computed tomography images of the head/brain without intravenous contrast Comparison: October 17, 2016 Findings: Brain: Senescent microangiopathic small vessel ischemic changes, stable and benign. Marie-white matter distinction maintained. No mass effect. No intra or extra-axial hemorrhage. Ventricles: Unremarkable. No ventriculomegaly. Bones/joints: Calvarium is intact Soft tissues: Unremarkable Sinuses: Near complete opacification of the right frontal, ethmoid and maxillary sinuses. Mild inflammatory changes involving the right sphenoid sinus. Mastoid air cells: Unremarkable visualized. Impression: 1. No acute intracranial abnormality 2. Stable atrophy and microangiopathic small vessel ischemic changes 3. Paranasal sinusitis as detailed above, unchanged in the interim PROCEDURE INTERPRETED AT [facility] DEPARTMENT OF RADIOLOGY Final Report Signed by: Andrea Marie
[2016-10-22] MEDS ORDERED: DEXTROSE 50% 25 GM/50 ML VIAL IV STA ×2 (20:37→20:39)
[2016-10-22] MEDS ORDERED: DEXTROSE 50% 25 GM/50 ML SYRINGE IV ONE (20:38)
--- NOTE | 2016-10-22 20:43 | CT Report ---
CT chest without contrastS2016 at 2006 hours Indication: Sepsis, shortness of breath, chest and abdominal pain Comparison: None available Technique: Axial CT imaging of the chest is performed without intravenous contrast. Findings: Chest: Examination markedly limited given unenhanced technique. The heart is mildly enlarged. Mild plaquing along the arch and coronary vessels. Granulomatous changes within the mediastinum. No effusions. Esophageal gastric tube in satisfactory position. Minimal atelectasis within the dependent portions of the lungs. Visualized abdomen: Grossly unremarkable. No pathologic abnormalities. Impression: 1. No acute intrathoracic abnormality. Incidental findings as discussed above. This CT exam was performed using one or more the following dose reduction techniques: Automated exposure control, adjustment of the MA and/or KV according to patient size, or use of iterative reconstruction technique. Exam: CT abdomen and pelvis with intravenous contrast Exam date: 10/22/2016 at 2009 hours Clinical History: 76-year-old male with possible sepsis. Abdominal pain Technique: Axial computed tomography images of the abdomen and pelvis without intravenous contrast. All CT scans at this facility use one or more dose reduction techniques. Automated exposure control, MA/KV adjustment per patient size (including targeted exam Square dose is matched to indication) or iterative reconstruction technique Comparison: No relevant prior studies Findings: Lower thorax: No acute pathologic findings at the lung bases Abdomen: Liver: Unremarkable Gallbladder and bile ducts: Decompressed. No calcified stones. No ductal dilatation. Pancreas: Pancreas is normal. Spleen: Spleen is unremarkable made of granulomatous changes. Adrenals: No adrenal mass. Kidneys and ureters: Punctate parenchymal calyceal calcifications. No hydronephrosis. No ureteral calculus. Stomach and bowel: Scattered colonic diverticula. No evidence of acute gastritis, colitis or enteritis. No bowel obstruction. Appendix: Normal appendix. Pelvis: Bladder: Urinary bladder wall thickening. Reproductive: Prominence of the prostate gland. Abdomen and pelvis: Intraperitoneal space: No pneumoperitoneum. No free intraperitoneal fluid Bones/joints: No acute osseous abnormality Soft tissues: No mass Vasculature: No aortic aneurysm Lymph nodes: Nonspecific shotty mesenteric, inguinal and retroperitoneal lymph nodes Impression: 1. Limited study given unenhanced technique. 2. Urinary bladder wall thickening, nonspecific. Correlate for outlet obstruction versus active cystitis. 3. Diverticulosis coli 4. Other findings as discussed above PROCEDURE INTERPRETED AT [facility] DEPARTMENT OF RADIOLOGY Final Report Signed by: Andrea Marie
[2016-10-23] MEDS ORDERED: DEXTROSE 50% 25 GM/50 ML SYRINGE IV ONE (00:48)
[2016-10-23] MEDS ORDERED: DEXTROSE 50% 25 GM/50 ML SYRINGE IV PRN ×2 (01:10→10:21)
[2016-10-23] MEDS ORDERED: DEXTROSE 5% NACL 0.45% 1,000 ML IV SCH (01:30)
--- NOTE | 2016-10-23 06:55 | EKG Report ---
Stationary ECG Study [facility] ER Test Date: 10/22/2016 7:16:10 PM Pat Name: SHAYLEE NEUMANN Department: Room: 235 Gender: M Credit Risk Review Officer: : 1940 Requested by: Daniel Rogers Order Number: [id number] Reading MD: ESTEFANÍA PANTOJA Intervals [place] Rate: 71 P: 56 MS: 180 QRS: 54 QRSD: 90 T: 50 QT: 375 QTc: 398 Interpretive Statements SINUS RHYTHM LEFT VENTRICULAR HYPERTROPHY AND ST-T CHANGE Electronically Signed On 10-23-16 15:53:47 CDT by ESTEFANÍA PANTOJA [email or web address]
[2016-10-23] MEDS ORDERED: ONDANSETRON 4 MG/2 ML VIAL IV PRN (10:17)
[2016-10-23] MEDS ORDERED: GLUCAGON 1 MG VIAL IM PRN (10:21)
--- NOTE | 2016-10-23 10:52 | Family Practice History&Phys ---
Assessment and Plan (1) Mental status change Status: Acute Assessment and plan: Patient was transferred from [facility] with onset of mental status change probably multifactorial in nature Current Visit: Yes (2) Probable urinary tract infection Status: Acute Assessment and plan: Urinalysis was not done in the emergency room so I have ordered a stat urine. Staff reports that urine is cloudy and I am suspicious for urinary tract infection Current Visit: No (3) SEVERE HYPOGLYCEMIA Status: Acute Assessment and plan: Patient was severely hypoglycemic on arrival of EMS. Blood sugar was 30. He has required several doses of D50 W. this is stable at the time of my dictation Current Visit: Yes (4) hypotension on admission Status: Acute Assessment and plan: Patient had significant hypotension on admission which was corrected with fluids in the emergency room Current Visit: Yes (5) History of CVAs Status: Chronic Assessment and plan: History of multiple previous infarcts. No acute infarct noted on head CT Current Visit: Yes (6) Hyperlipidemia Status: Chronic Assessment and plan: History of hyperlipidemia controlled on present medication Current Visit: Yes (7) Diabetes mellitus Status: Chronic Assessment and plan: History of type 2 diabetes mellitus but patient was severely hypotensive on admission. 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 Schneider is a 76 year old male 76-year-old black male transferred from [facility] rehab with altered mental state and hypotension. Apparently his blood code glucose was in the 30s when checked by EMS. Ultimately required several doses of D50. And subsequently placed on IV with dextrose. Glucose has improved this a.m. Difficult to obtain history as no family are present and patient unable to provide. Family did state to nursing staff that patient's mental status was definitely changed. I have spent significant time trying to review his previous admissions to determine exactly what his mental status was. He set up recent Fulton's palsy as well as cerebrovascular accident. He has persistent right facial droop with slurred speech but does Answer simple questions appropriately. Unable to provide any medical history. Apparently his most recent creatinine was 3.8. His creatinine on admission was a 7.7. His abdominal CT on admission reveals some changes consistent with obstructive uropathy. I have ordered a Drake cath be placed and checked for residual. There was no urinalysis obtained on admission so we will obtain urinalysis to rule out urinary tract infection. Will order a number of additional studies in consult nephrology. I have asked staff to contact family and have family member stay with patient Home Medications Medication Instructions Recorded Confirmed Type Insulin NPH/Regular 70/30 [HumuLIN 25 unit SUBCUT AC SUPPER #1 unit 09/23/1605/06 Rx 70/30] Insulin NPH/Regular 70/30 [HumuLIN 30 unit SUBCUT AC BREAKFAST #1 unit 09/23/16 10/23/16 Rx 70/30] Rosuvastatin [Crestor] 40 mg PO BEDTIME #30 tablet 09/23/16 10/23/16 Rx amLODIPine [Norvasc] 10 mg PO DAILY #30 09/23/16 10/23/16 Rx Insulin Regular [HumuLIN R] See Protocol SUBCUT ACHS 10/17/16 10/23/16 History Apixaban [Eliquis] 5 mg PO BID #60 tablet 10/19/16 10/23/16 Rx Ciprofloxacin Tab [Cipro Tab] 500 mg PO DAILY #10 tablet 10/19/16 10/23/16 Rx Pantoprazole Tab [Protonix Tab] 40 mg PO DAILY #30 tablet 10/19/16 10/23/16 Rx Allergies Allergy/AdvReac Type Severity Reaction Status Date / Time acetaminophen [From Tylenol] Allergy Mild RASH Verified 10/17/16 12:25 Penicillins Allergy Mild UNRESPONSIV Verified 10/17/16 12:25 E Medical,Surgical,& Family Hx - Medical History Cardio: History of: Hypertension Neurology: History of: Cerebrovascular Accident (09/2016), Neurological Problems (Fulton's palsy) HEENT: History of: Eye Problem (reading glasses), HEENT Problems (Cataracts removed both eyes.) Endocrine: History of: Diabetes Mellitus (IDDM) Rheumatology: History of;: Gout Musculoskeletal: History of: Musculoskeletal Problems (Osteoarthritis) No history of: Amputation - Surgical History Cardiac Surgeries: Patient Denies: Femoral-Popliteal Bypass Graft, Cardiac Catheterization, Cardiac Surgery, Carotid Endarterectomy, Internal Defibrillator, Vascular Access Devices Thoracic Surgeries: Patient denies;: Kidney (Renal Surgery), Lithotripsy, Nephrectomy Comment Only: Organ Transplant (Skin graft from left thigh) Neurologic Surgeries: Patient denies: Neurologic Surgery HEENT Surgeries: Surgical HX of: Eye Surgery (Cataracts both eyes removed.) Patient denies: Carotid Endarterectomy, Tonsilectomy & Adenoidectomy Abdominal Surgeries: Patient denies: Abdominal Surgery, Appendectomy, Cholecystectomy, Colonoscopy , Gastric Bypass Surgery, EGD, Hernia Repair, Splenectomy Reproductive Surgeries: Patient denies;: Breast Surgery, Cystoscopy, Genitourinary Surgery, Prostate Surgery, Vasectomy Orthopedic Surgeries: Patient denies;: Implanted Devices, Orthopedic Surgery, Spinal Surgery, Total Hip Replacement, Total Knee Replacement - Family History Family History: Reports;: Family Cancer, Family Diabetes - Social History Smoking Status: Former smoker Frequency of Alcohol Use: None Type of Drug Use: None Marital Status: Lives With:: Spouse Exam - Constitutional Vitals: Period Temp Pulse Resp BP Sys/Tatum Pulse Ox Last 24 Hr 97.0 F-98.2 F 60-72 18-20 118-140/64-76 92-99 General appearance: mild distress - Head Head exam: Present: normal inspection - Neck Neck exam: Present: normal inspection - Respiratory Respiratory exam: Present: clear to auscultation bilaterally - Cardiovascular Cardiovascular exam: Present: irregular rhythm - GI/Abdominal GI/Abdominal exam: Present: normal bowel sounds, soft - Extremities Exam Extremities exam: Present: normal inspection - Back Exam Back exam: Present: normal inspection - Neurological Exam Neurological exam: Present: altered, other (Patient has a right facial droop, he has slurred speech, moving all extremities) - Psychiatric Psychiatric exam: Present: other (Patient is confused and disoriented. Can answer simple questions only.) - Skin Skin exam: Present: normal color Results - Labs CBC & BMP: 10/22/16 19:33 10/22/16 19:33 Quality Measures - VTE Contraindication to Pharmacological VTE Prophylaxis: High Risk of Bleeding
[2016-10-23 11:13] LABS: Apearance,Urine Slightly Hazy (Clear); Bacteria,Urine Occasional /HPF (Few); Bilirubin,Urine Negative (Negative); Blood, Urine Large mg/dL (Negative); Glucose,Urine (UA) 50 mg/dL (Negative); Ketones,Urine Negative (Negative); Nitrite,Urine Negative (Negative); Protein,Urine 100 MG/DL; RBC,Urine 149 /HPF (0-4); Squamous Epithelial Cell,Urine Occasional /HPF (0-10); Urine Color Yellow (Yellow); Urine Specific Gravity 1.006 (1.001-1.035); Urine Urobilinogen < 2.0 EU/DL (0.2-1.0); WBC,Urine 25 /HPF (0-6)
[2016-10-23] MEDS: SODIUM CHLORIDE 0.45% 1,000 ML IV SCH (11:27)
--- NOTE | 2016-10-23 12:03 | Nephrology Consult Note ---
History of Present Illness Chief complaint: ARF History of present illness: Mr. Schneider is a 76 year old male admitted to [facility] on 09/19/2016 with right facial droop. MRI showed no acute CVA. This was thought to be Fulton's palsy. He was started on acyclovir. He was also started on quinapril. He was transferred to rehab on 09/23/2016. He was transferred back to [facility] on 10/17/2016 with acute CVA. This was thought to be embolic. Creatinine is risen to 3.4 at that time. He was seen by Dr. Ramesh. He was transferred back to rehab on 10/20/2016. Creatinine was 4.1 on that date. It sean to 5.7 on 10/21/2016. He developed confusion and hypoglycemia last p.m. and was readmitted to [facility]. He was reportedly hypotensive prior to transfer here. Creatinine was noted to be 7.7 on readmission. He is confused and unable to give any history. Home Medications Medication Instructions Recorded Confirmed Type Insulin NPH/Regular 70/30 [HumuLIN 25 unit SUBCUT AC SUPPER #1 unit 09/23/1605/06 Rx 70/30] Insulin NPH/Regular 70/30 [HumuLIN 30 unit SUBCUT AC BREAKFAST #1 unit 09/23/16 10/23/16 Rx 70/30] Rosuvastatin [Crestor] 40 mg PO BEDTIME #30 tablet 09/23/16 10/23/16 Rx amLODIPine [Norvasc] 10 mg PO DAILY #30 09/23/16 10/23/16 Rx Insulin Regular [HumuLIN R] See Protocol SUBCUT ACHS 10/17/16 10/23/16 History Apixaban [Eliquis] 5 mg PO BID #60 tablet 10/19/16 10/23/16 Rx Ciprofloxacin Tab [Cipro Tab] 500 mg PO DAILY #10 tablet 10/19/16 10/23/16 Rx Pantoprazole Tab [Protonix Tab] 40 mg PO DAILY #30 tablet 10/19/16 10/23/16 Rx Allergies Allergy/AdvReac Type Severity Reaction Status Date / Time acetaminophen [From Tylenol] Allergy Mild RASH Verified 10/17/16 12:25 Penicillins Allergy Mild UNRESPONSIV Verified 10/17/16 12:25 E Medical,Surgical,& Family Hx - Medical History Cardio: History of: Hypertension Neurology: History of: Cerebrovascular Accident (09/2016), Neurological Problems (Fulton's palsy) HEENT: History of: Eye Problem (reading glasses), HEENT Problems (Cataracts removed both eyes.) Endocrine: History of: Diabetes Mellitus (IDDM) Rheumatology: History of;: Gout Musculoskeletal: History of: Musculoskeletal Problems (Osteoarthritis) No history of: Amputation - Surgical History Cardiac Surgeries: Patient Denies: Femoral-Popliteal Bypass Graft, Cardiac Catheterization, Cardiac Surgery, Carotid Endarterectomy, Internal Defibrillator, Vascular Access Devices Thoracic Surgeries: Patient denies;: Kidney (Renal Surgery), Lithotripsy, Nephrectomy Comment Only: Organ Transplant (Skin graft from left thigh) Neurologic Surgeries: Patient denies: Neurologic Surgery HEENT Surgeries: Surgical HX of: Eye Surgery (Cataracts both eyes removed.) Patient denies: Carotid Endarterectomy, Tonsilectomy & Adenoidectomy Abdominal Surgeries: Patient denies: Abdominal Surgery, Appendectomy, Cholecystectomy, Colonoscopy , Gastric Bypass Surgery, EGD, Hernia Repair, Splenectomy Reproductive Surgeries: Patient denies;: Breast Surgery, Cystoscopy, Genitourinary Surgery, Prostate Surgery, Vasectomy Orthopedic Surgeries: Patient denies;: Implanted Devices, Orthopedic Surgery, Spinal Surgery, Total Hip Replacement, Total Knee Replacement - Family History Family History: Reports;: Family Cancer, Family Diabetes - Social History Smoking Status: Former smoker Frequency of Alcohol Use: None Type of Drug Use: None Review of Systems ROS unobtainable: due to mental status Exam - Vital Signs Vital signs: Period Temp Pulse Resp BP Sys/Tatum Pulse Ox Last 24 Hr 97.0 F-98.2 F 60-72 18-20 118-140/64-76 92-99 Exam: Gen.: Awake but confused ENT: Pupils equal round reactive to light. EOMs intact. Neck: Supple. No JVD or bruit. Cardiovascular: Regular rate and rhythm. No murmur rub or gallop Lungs: Clear Abdomen: Soft. Nontender. Positive bowel sounds. No organomegaly Extremities: No edema Results - Labs CBC & BMP: 10/22/16 19:33 10/22/16 19:33 Assessment and Plan (1) SEVERE HYPOGLYCEMIA Status: Acute Current Visit: Yes (2) Acute CVA (cerebrovascular accident) Status: Acute Current Visit: No (3) Acute renal failure Status: Acute Assessment and plan: 76-year-old man with: * ARF. He appears to be clinically volume depleted. IV fluid has been started. Review of his chart shows he has been on acyclovir for the entire month of September. He was also started on quinapril in early September. These have been discontinued. He was also hypotensive on admission. This has improved * Cerebrovascular disease. * Recent embolic CVA * Diabetes mellitus. Hypoglycemic on admission Current Visit: No (4) Facial paralysis/[place] palsy Status: Acute Current Visit: No (5) Uncontrolled diabetes mellitus Status: Acute Current Visit: No (6) Debility Status: Chronic Current Visit: No (7) Essential hypertension Status: Chronic Current Visit: No
[2016-10-23] MEDS: APIXABAN 5 MG TABLET PO SCH ×2 (12:37→21:39)
[2016-10-23] MEDS: INSULIN REGULAR 100 UNIT/ML SUBCUT SCH ×3 (12:43→21:42)
[2016-10-23] MEDS: DOCUSATE SODIUM 100 MG CAPSULE PO SCH (21:39)
[2016-10-23] MEDS: ROSUVASTATIN 20 MG TABLET PO SCH (21:39)
[2016-10-24] MEDS: SODIUM CHLORIDE 0.45% 1,000 ML IV SCH ×2 (01:54→16:33)
[2016-10-24 04:31] LABS: Basophils % 0.4 % (0.0-0.8); Eosinophils # 0.2 10*3/uL (0.0-0.87); Eosinophils % 1.9 % (0.00-10.9); Hematocrit 24.8 VOL% (42.0-52.0); Hemoglobin 8.3 GM/DL (14.0-18.0); Immature Granulocytes % 0.7 %; Immature Granulocytes Absolute 0.07 #; Lymphocytes # 1.8 10*3/uL (1.4-4.0); Lymphocytes % 16.8 % (21.2-54.2); Mean Corpuscular HGB Conc 33.5 GM/DL (32-36); Mean Corpuscular Hemoglobin 26 PG (27-34); Mean Corpuscular Volume 77.7 FL (87-102); Neutrophils # 7.6 10*3/uL (1.4-7.4); Neutrophils % 71.2 % (38.7-73.9); Platelet Count 329 T/CUMM (130-400); Red Blood Count 3.19 MC/CUMM (3.8-5.5); Red Cell Distribution Width 12.8 % (9.3-17.3); White Blood Count 10.7 T/CUMM (4-12)
[2016-10-24 05:03] LABS: Albumin 2.3 G/DL (3.4-5.0); Bilirubin,Total 1.6 MG/DL (0.2-1.0); Calcium 7.9 MG/DL (8.5-10.1); Magnesium 2.4 MG/DL (1.8-2.4); Osmolality,Calculated 319.8 MOS/KG (273-304); Potassium 4.7 MMOL/L (3.5-5.1); Risk Ratio 3.09; Total Protein 6.7 G/DL (6.4-8.3); VLDL CHOLESTEROL 26.4 MG/DL
[2016-10-24] MEDS: INSULIN REGULAR 100 UNIT/ML SUBCUT SCH ×4 (08:27→20:25)
[2016-10-24] MEDS ORDERED: PANTOPRAZOLE 40 MG TABLET PO SCH (09:00)
[2016-10-24] MEDS: APIXABAN 5 MG TABLET PO SCH ×2 (09:50→20:00)
[2016-10-24] MEDS: DOCUSATE SODIUM 100 MG CAPSULE PO SCH ×2 (09:50→19:59)
--- NOTE | 2016-10-24 11:01 | XRay Report ---
Portable chest October 24, 2016 at 0825 hours Indication: Shortness of breath, cough Comparison: CT performed on October 22, 2016 Findings: Cardiomediastinal contours are stable. Lungs are clear bilaterally. Chronic interstitial coarsening is noted. No acute osseous abnormalities. Visualized upper abdomen demonstrates no acute pathology. Impression: No acute cardiopulmonary findings PROCEDURE INTERPRETED AT [facility] DEPARTMENT OF RADIOLOGY Final Report Signed by: Andrea Marie
--- NOTE | 2016-10-24 11:25 | Family Practice Progress Note ---
Family Practice - PN: Subj Interval history: 10/24/16 -patient is minimally responsive this a.m. Son is present today and states that patient has been moaning and thrashing throughout the night. He will awaken and try to answer questions. He had a normal head CT on admission but certainly could have had a new CVA. I have not ordered an MRI since he was almost certainly have to be sedated in order to do that. He is presently on Eliquis which would be the normal treatment for acute CVA. His renal status has continued to decline. His creatinine has gone from 7.7 on admission to 9.3 this a.m.. His BNP is elevated at 1312 but his lung infante are clear to auscultation and chest x-ray this a.m. does not show any failure. I spent significant amount of time discussing all aspects of case with the patient's son. He was not tolerating solids or liquids yesterday but staff states that he will tolerate liquids today. I advised son that if the patient does not tolerate liquids will have to consider feeding tube. Also discussed the possibility of dialysis. Advised son that Dr. Velázquez will discuss this in detail. Apparently the patient had stopped taking his hypertensive and diabetic medications prior to the onset of his initial admission. This could certainly explain his CVA and continued decline. We will continue present treatment plan. Exam (Progress Note) - Constitutional Vitals: Period Temp Pulse Resp BP Sys/Tatum Pulse Ox Last 24 Hr 97.2 F-98.6 F 71-78 18-24 122-144/69-80 92-99 Results - Labs CBC & BMP: 10/24/16 03:55 10/24/16 03:55 Assessment and Plan (1) Mental status change Status: Acute Assessment and plan: Patient was transferred from [facility] with onset of mental status change probably multifactorial in nature Current Visit: Yes (2) Probable urinary tract infection Status: Acute Assessment and plan: Urinalysis was not done in the emergency room so I have ordered a stat urine. Staff reports that urine is cloudy and I am suspicious for urinary tract infection Current Visit: No (3) SEVERE HYPOGLYCEMIA Status: Acute Assessment and plan: Patient was severely hypoglycemic on arrival of EMS. Blood sugar was 30. He has required several doses of D50 W. this is stable at the time of my dictation Current Visit: Yes (4) hypotension on admission Status: Acute Assessment and plan: Patient had significant hypotension on admission which was corrected with fluids in the emergency room Current Visit: Yes (5) History of CVAs Status: Chronic Assessment and plan: History of multiple previous infarcts. No acute infarct noted on head CT Current Visit: Yes (6) Hyperlipidemia Status: Chronic Assessment and plan: History of hyperlipidemia controlled on present medication Current Visit: Yes (7) Diabetes mellitus Status: Chronic Assessment and plan: History of type 2 diabetes mellitus but patient was severely hypotensive on admission. 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
[2016-10-24 11:58] LABS: Calcium 7.6 MG/DL (8.5-10.1); Osmolality,Calculated 322.8 MOS/KG (273-304)
--- NOTE | 2016-10-24 14:22 | Nephrology Progress Note ---
Nephrology - PN: Subj Interval history: He remains quite confused. Blood pressure stable Exam (PN)-Nephrology - Vital Signs Vital signs: Period Temp Pulse Resp BP Sys/Tatum Pulse Ox Last 24 Hr 97.2 F-98.6 F 69-78 18-24 108-144/57-80 92-99 Exam: Gen.: Awake but confused ENT: Pupils equal round reactive to light. EOMs intact. Neck: Supple. No JVD or bruit. Cardiovascular: Regular rate and rhythm. No murmur rub or gallop Lungs: Clear Abdomen: Soft. Nontender. Positive bowel sounds. No organomegaly Extremities: No edema - Lab 10/24/16 03:55 10/24/16 10:50 Most recent lab results Calcium 7.6 MG/DL (8.5-10.1) L 10/24/16 10:50 Magnesium 2.4 MG/DL (1.8-2.4) 10/24/16 03:55 Assessment and Plan (1) SEVERE HYPOGLYCEMIA Status: Acute Current Visit: Yes (2) Acute CVA (cerebrovascular accident) Status: Acute Current Visit: No (3) Acute renal failure Status: Acute Assessment and plan: 76-year-old man with: * ARF. No improvement in renal function. I discussed his situation with his son. I have advised that he may require dialysis in the next day or 2 if no improvement * Cerebrovascular disease. * Recent embolic CVA * Diabetes mellitus. Hypoglycemic on admission Current Visit: No (4) Facial paralysis/[place] palsy Status: Acute Current Visit: No (5) Uncontrolled diabetes mellitus Status: Acute Current Visit: No (6) Debility Status: Chronic Current Visit: No (7) Essential hypertension Status: Chronic Current Visit: No
[2016-10-24] MEDS: ROSUVASTATIN 20 MG TABLET PO SCH (19:59)
[2016-10-25 03:18] LABS: Basophils % 0.3 % (0.0-0.8); Eosinophils # 0.2 10*3/uL (0.0-0.87); Eosinophils % 1.7 % (0.00-10.9); Hematocrit 21.3 VOL% (42.0-52.0); Immature Granulocytes % 0.6 %; Immature Granulocytes Absolute 0.07 #; Lymphocytes % 17.6 % (21.2-54.2); Mean Corpuscular HGB Conc 32.9 GM/DL (32-36); Mean Corpuscular Hemoglobin 26 PG (27-34); Mean Corpuscular Volume 79.2 FL (87-102); Mean Platelet Volume 9.7 FL (9.6-12.0); Monocytes % 8.7 % (1.7-12.7); Neutrophils # 8.1 10*3/uL (1.4-7.4); Neutrophils % 71.1 % (38.7-73.9); Platelet Count 265 T/CUMM (130-400); Red Blood Count 2.69 MC/CUMM (3.8-5.5); Red Cell Distribution Width 12.9 % (9.3-17.3); White Blood Count 11.4 T/CUMM (4-12)
--- NOTE | 2016-10-25 09:21 | Family Practice Progress Note ---
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 As per the nurse pt had large janice colored BM this AM, on eliquis And as per speech therapist , requested for NPO, Exam (Progress Note) - Constitutional Vitals: Period Temp Pulse Resp BP Sys/Tatum Pulse Ox Last 24 Hr 97.3 F-97.9 F 68-75 16-22 108-164/57-82 92-97 Exam: Examination: GENERAL: Awake, in no acute distress , male pt, lying in the bed, HEENT: rt eye lagopthalmous, dry cornea, poor oral , dental hygeine, with halitosis, NECK: Neck is supple. No JVD. No carotid bruit. No thyromegaly. CVS: Regular rate and rhythm. S1 and S2 are normal. RESPIRATORY: Clear to ausculation bilaterally , No wheezes, rales or rhonchi. ABDOMEN: Soft and nontender. Bowel sounds are present. No hepatosplenomegaly. EXT: No edema. MOTOR SETTER: Patient is awake, speech slurry, making incomprehensible sounds,rt eye lagopthalmous, loss of rt nasolabial fold, ( Rt fulton's palsy) deviation of angle of mouth to left, tip of tongue deviated to right, unable to assess Strength, moving all limbs UE>LE Results - Labs CBC & BMP: 10/25/16 09:23 10/25/16 09:27 Lab Results: I have reviewed the past 24 hour labs Labs: Urine Cx CC, showing staph hemolyticus MR, 10K-20K sensitive to nitrofuratoin and trimethoprim/sulfamethoxazole from 10/23/16 URine Cx , blood Cx from 10/22/16 , no growth so far, - Diagnostic Findings Procedure: Chest x-ray: report reviewed by me, CT Abdomen and Pelvis: report reviewed by me, CT: report reviewed by me Assessment and Plan (1) Acute renal failure Status: Acute Assessment and plan: worsening, ,increased BUN/CR 125/9.6 , compared with admission 91/7.7, will follow nephro recommendations, 2.Anemia, hem-occult Positive stools,H/H last 7.2/21.7, will, type , crossmatch and hold 2 PRBCs, H&H q 6 HRS, CONSULT GI, D/C ELIQUIS TODAY, 3. h/o CVA, rt fulton's palsy, consult neurology, as per speech therapist will leave NPO except meds, continue IVF 4. DM , stable , continue sliding scale insulin, 5.HTN stable, not on antihypertensives currently 6. Hperlipedemia, continue crestor. Current Visit: No (2) Mental status change Status: Acute Current Visit: Yes (3) SEVERE HYPOGLYCEMIA Status: Resolved Current Visit: Yes (4) History of CVAs Status: Chronic Current Visit: Yes (5) Hyperlipidemia Status: Chronic Current Visit: Yes (6) Debility Status: Chronic Current Visit: Yes (7) Heme positive stool Status: Acute Current Visit: Yes (8) Hypertension Status: Chronic Current Visit: Yes (9) Diabetes mellitus Status: Chronic Current Visit: Yes Qualifiers: Diabetes mellitus type: type 2 (10) Right-sided Fulton's palsy Status: Chronic Current Visit: Yes Quality Measures - VTE Contraindication to Pharmacological VTE Prophylaxis: High Risk of Bleeding
[2016-10-25 10:15] LABS: Calcium 7.4 MG/DL (8.5-10.1); Osmolality,Calculated 329.7 MOS/KG (273-304); Potassium 4.9 MMOL/L (3.5-5.1)
[2016-10-25] MEDS: DOCUSATE SODIUM 100 MG CAPSULE PO SCH ×2 (10:22→21:00)
[2016-10-25] MEDS: INSULIN REGULAR 100 UNIT/ML SUBCUT SCH ×4 (10:22→20:35)
[2016-10-25] MEDS: APIXABAN 5 MG TABLET PO SCH (10:23)
[2016-10-25 10:37] LABS: Basophils % 0.2 % (0.0-0.8); Eosinophils # 0.2 10*3/uL (0.0-0.87); Eosinophils % 1.7 % (0.00-10.9); Hematocrit 21.7 VOL% (42.0-52.0); Hemoglobin 7.2 GM/DL (14.0-18.0); Immature Granulocytes % 0.4 %; Immature Granulocytes Absolute 0.05 #; Mean Corpuscular HGB Conc 33.2 GM/DL (32-36); Mean Corpuscular Hemoglobin 26 PG (27-34); Mean Corpuscular Volume 78.9 FL (87-102); Mean Platelet Volume 9.9 FL (9.6-12.0); Monocytes # 0.8 10*3/uL (0.11-0.8); Monocytes % 6.6 % (1.7-12.7); Neutrophils # 9.2 10*3/uL (1.4-7.4); Neutrophils % 75.1 % (38.7-73.9); Platelet Count 296 T/CUMM (130-400); Red Blood Count 2.75 MC/CUMM (3.8-5.5); Red Cell Distribution Width 12.9 % (9.3-17.3); White Blood Count 12.2 T/CUMM (4-12)
--- NOTE | 2016-10-25 14:25 | Nephrology Progress Note ---
Nephrology - PN: Subj Interval history: This patient has been transferred back to [facility] over weekend due to GI bleed. The patient's serum creatinine is noted to be elevated. He is scheduled for dialysis after the dialysis catheter is placed. Family members are at the bedside and have been updated. Exam (PN)-Nephrology - Vital Signs Vital signs: Period Temp Pulse Resp BP Sys/Tatum Pulse Ox Last 24 Hr 97.3 F-97.9 F 67-75 16-22 135-164/69-82 93-99 - General Appearance General appearance: fatigue, frail Neck: supple Respiratory: clear Cardiology: regular rate, regular rhythm Gastrointestinal: normoactive bowel sounds Neurologic: confused Musculoskeletal: no deformities - Lab 10/25/16 09:23 10/25/16 09:27 Most recent lab results Calcium 7.4 MG/DL (8.5-10.1) L 10/25/16 09:27 Magnesium 2.4 MG/DL (1.8-2.4) 10/24/16 03:55 Assessment and Plan (1) Anemia Status: Acute Current Visit: Yes (2) Uncontrolled hypertension Status: Chronic Current Visit: No (3) Uncontrolled diabetes mellitus Status: Chronic Current Visit: No Qualifiers: Diabetes mellitus type: type 2 Diabetes mellitus complication status: with kidney complications Diabetes mellitus complication detail: with chronic kidney disease (4) Essential hypertension Status: Chronic Current Visit: No (5) Heme positive stool Status: Acute Assessment and plan: Will give 2 units PRBCs on dialysis. Current Visit: Yes (6) Acute CVA (cerebrovascular accident) Status: Acute Current Visit: No (7) Acute renal failure Status: Acute Assessment and plan: Now will need dialysis. Ask for dialysis catheter Will transfuse 2 units PRBCs on dialysis. Hepatitis panel Current Visit: No
[2016-10-25] MEDS ORDERED: ceFAZolin 2,000 MG in PREMIX 1 EACH IV ONE (14:27)
[2016-10-25] MEDS ORDERED: HEPARIN 5,000 UNIT/1 ML VIAL ONE (14:28)
[2016-10-25] MEDS ORDERED: BUPIVACAINE 0.25% 50 ML VIAL ONE (14:28)
--- NOTE | 2016-10-25 15:16 | General Surgery Consult Note ---
Assessment and Plan (1) Renal failure Status: Acute Assessment and plan: I have been consulted for hemodialysis catheter placement. I discussed the initiation of hemodialysis with Dr. Hung. He has confirmed that he would like to start dialysis tonight. I have discussed the fact that the patient has had recent Eliquis use last dose yesterday with the patient's son but I do not feel that this is a prohibitive risk to placing a catheter. I have discussed increased risk of bleeding with the son as well as the risks of catheter placement general. I discussed the risks, benefits, and alternatives of the operation, and the expected outcomes have been reviewed. The patient is receiving a blood transfusion for hemoglobin of 7 but he is hemodynamically normal. He will be taken to the operating room for dialysis catheter placement today. Current Visit: Yes History of Present Illness Chief complaint: Renal failure with need to initiate hemodialysis History of present illness: Mr. Schneider is a 76 year old male who was admitted to the hospital with GI bleeding and renal failure. Dr. Ramesh has decided start the patient on hemodialysis and has requested a hemodialysis catheter placement. The patient has never been on dialysis before and has not had catheters or central lines. He is on Eliquis and this is being held for his GI bleed. Home Medications Medication Instructions Recorded Confirmed Type Insulin NPH/Regular 70/30 [HumuLIN 25 unit SUBCUT AC SUPPER #1 unit 09/23/1605/06 Rx 70/30] Insulin NPH/Regular 70/30 [HumuLIN 30 unit SUBCUT AC BREAKFAST #1 unit 09/23/16 10/23/16 Rx 70/30] Rosuvastatin [Crestor] 40 mg PO BEDTIME #30 tablet 09/23/16 10/23/16 Rx amLODIPine [Norvasc] 10 mg PO DAILY #30 09/23/16 10/23/16 Rx Insulin Regular [HumuLIN R] See Protocol SUBCUT ACHS 10/17/16 10/23/16 History Apixaban [Eliquis] 5 mg PO BID #60 tablet 10/19/16 10/23/16 Rx Ciprofloxacin Tab [Cipro Tab] 500 mg PO DAILY #10 tablet 10/19/16 10/23/16 Rx Pantoprazole Tab [Protonix Tab] 40 mg PO DAILY #30 tablet 10/19/16 10/23/16 Rx Allergies Allergy/AdvReac Type Severity Reaction Status Date / Time acetaminophen [From Tylenol] Allergy Mild RASH Verified 10/17/16 12:25 Penicillins Allergy Mild UNRESPONSIV Verified 10/17/16 12:25 E Medical,Surgical,& Family Hx - Medical History Cardio: History of: Hypertension Neurology: History of: Cerebrovascular Accident (09/2016), Neurological Problems (Fulton's palsy) HEENT: History of: Eye Problem (reading glasses), HEENT Problems (Cataracts removed both eyes.) Endocrine: History of: Diabetes Mellitus (IDDM) Rheumatology: History of;: Gout Musculoskeletal: History of: Musculoskeletal Problems (Osteoarthritis) No history of: Amputation - Surgical History Cardiac Surgeries: Patient Denies: Femoral-Popliteal Bypass Graft, Cardiac Catheterization, Cardiac Surgery, Carotid Endarterectomy, Internal Defibrillator, Vascular Access Devices Thoracic Surgeries: Patient denies;: Kidney (Renal Surgery), Lithotripsy, Nephrectomy Comment Only: Organ Transplant (Skin graft from left thigh) Neurologic Surgeries: Patient denies: Neurologic Surgery HEENT Surgeries: Surgical HX of: Eye Surgery (Cataracts both eyes removed.) Patient denies: Carotid Endarterectomy, Tonsilectomy & Adenoidectomy Abdominal Surgeries: Patient denies: Abdominal Surgery, Appendectomy, Cholecystectomy, Colonoscopy , Gastric Bypass Surgery, EGD, Hernia Repair, Splenectomy Reproductive Surgeries: Patient denies;: Breast Surgery, Cystoscopy, Genitourinary Surgery, Prostate Surgery, Vasectomy Orthopedic Surgeries: Patient denies;: Implanted Devices, Orthopedic Surgery, Spinal Surgery, Total Hip Replacement, Total Knee Replacement - Family History Family History: Reports;: Family Cancer, Family Diabetes - Social History Smoking Status: Former smoker Frequency of Alcohol Use: None Type of Drug Use: None - Constitutional Constitutional: Present: as per HPI - EENT Nose, mouth and throat: Present: as per HPI - Cardiovascular Cardiovascular: Present: as per HPI - Respiratory Respiratory: Present: as per HPI - Gastrointestinal Gastrointestinal: Present: as per HPI - Genitourinary Genitourinary: Present: as per HPI - Musculoskeletal Musculoskeletal: Present: as per HPI - Neurological Neurological: Present: as per HPI - Endocrine Endocrine: Present: as per HPI Hematologic/Lymphatic: Present: as per HPI Exam - Constitutional Vitals: Period Temp Pulse Resp BP Sys/Tatum Pulse Ox Last 24 Hr 97.3 F-97.9 F 67-75 16-22 135-164/69-82 93-99 General appearance: normal weight, no acute distress - Head Head exam: Present: normal inspection, normocephalic - Eye Eye exam: Present: EOMI - ENT ENT exam: Present: normal exam Mouth exam: Present: normal external inspection - Neck Neck exam: Present: normal inspection, trachea midline - Respiratory Respiratory exam: Present: clear to auscultation bilaterally. Absent: accessory muscle use, chest wall tenderness - Cardiovascular Cardiovascular exam: Present: RRR. Absent: systolic murmur, tachycardia - GI/Abdominal GI/Abdominal exam: Present: normal bowel sounds, soft. Absent: ascites, distended, tenderness, rebound - Extremities Exam Extremities exam: Present: normal inspection, normal capillary refill - Back Exam Back exam: Present: normal inspection - Skin Skin exam: Present: normal color, warm Quality Measures - VTE Contraindication to Pharmacological VTE Prophylaxis: High Risk of Bleeding Results - Labs CBC & BMP: 10/25/16 09:23 10/25/16 09:27
--- NOTE | 2016-10-25 15:31 | Gastrointestinal Consult Note ---
Assessment and Plan (1) Gastrointestinal hemorrhage with melena Status: Acute Assessment and plan: The patient has certainly decrease in hematocrit from earlier back and August when this was above 40% all the way down 21% now. He has had 3 black stools in the face of Eliquis use this speaks to an upper GI bleed above the ligament of Treitz possibly esophagitis, gastritis, peptic ulcer disease, gastric cancer, or duodenitis. Dieulafoy's lesions remain in the differential as does esophageal cancer. Patient is also suffered a mental status change which may or may not be related to the above. If the patient can go to get his dialysis today and get transfused with a hematocrit of hopefully above 26%. We should be able to tolerate a upper endoscopy tomorrow provided his potassium has not elevated significantly from its current level, or improved. I did discuss the situation with the dialysis staff. He will be getting his blood with dialysis being given at the time of this dictation. Current Visit: Yes (2) Acute posthemorrhagic anemia Status: Acute Assessment and plan: Agree with plan for transfusion and then dialysis will come concommitment obtaining both of these goals of the same time. I have increased the patient's Protonix to 40 mg IV twice daily to ensure that he is not throwing this up, we can certainly start him on some liquid feeding today. We may advance his diet tomorrow depending on findings of upper endoscopy but he can undergo this tomorrow morning. Risks of the procedure were discussed with his son and include but are not limited to: Bleeding, infection, difficulty swallowing, cardiac and pulmonary compromise. Current Visit: Yes (3) Moderate malnutrition Status: Acute Assessment and plan: We will have dietary see the patient this admission help with a plan to increase his lean body mass. He might benefit from Nepro shakes later in the admission. The patient has a right-sided Fulton's palsy and may be experiencing some decreased desire to eat secondary to potential encephalopathy. Neurology can certainly weigh in more effectively on this than I given my specialty. We can always consider PEG tube down the road if patient requires this. Current Visit: Yes (4) Anorexia Status: Acute Assessment and plan: We will see if we can improve his appetite later on the admission by suppressing the acidity in the stomach and improving waste filtration of his urine. Current Visit: Yes History of Present Illness Chief complaint: Melena 3 episodes today, decreased hematocrit is 21%, guaiac + stools History of present illness: Mr. Schneider is a 76 year old male who has been experiencing some confusion lately and is transferred here from [facility] with acute mental status change and hypotension. The patient was has also been dealing with a Fulton's palsy but is also been experiencing some low blood glucoses sometimes down to the 30s according to the EMS transporters. Patient is also experienced an increase in his creatinine from 3.8 up to 7.7 and this is being evaluated by nephrology. Because of his acute changes he is undergoing a tunneled catheter placement for dialysis. His hypotension upon transfer was remedied with IV replacement in the emergency room. Some concern that he may have had a urinary tract infection. The Fulton's palsy I am concerned about potential herpetic infection of his brain which can certainly result in herpes induced hepatic encephalopathy. The patient had been given Eliquis on admission but unfortunately has developed 3 black tarry stools and the Eliquis has been discontinued. I have been consulted to see if I can find a bleeding source in the upper GI tract. Records indicate this patient's hematocrit prior to his current admission back on 09/19/16 was 43.3%, back on 10/17/16 it dropped down to 29.1 percent and most recently this admission has dropped down to 31.5 percent as of 10/20/16 and now down to 21.3% as of 0304 this morning. I do not see this patient is previous upper endoscopy and lower endoscopy history. Unfortunately [facility] [place] has 0 information on this individual. The patient's appetite has been poor. As mentioned before he is on Eliquis now, he has been very confused. He is not having any unusual abdominal pain. Home Medications Medication Instructions Recorded Confirmed Type Insulin NPH/Regular 70/30 [HumuLIN 25 unit SUBCUT AC SUPPER #1 unit 09/23/1605/06 Rx 70/30] Insulin NPH/Regular 70/30 [HumuLIN 30 unit SUBCUT AC BREAKFAST #1 unit 09/23/16 10/23/16 Rx 70/30] Rosuvastatin [Crestor] 40 mg PO BEDTIME #30 tablet 09/23/16 10/23/16 Rx amLODIPine [Norvasc] 10 mg PO DAILY #30 09/23/16 10/23/16 Rx Insulin Regular [HumuLIN R] See Protocol SUBCUT ACHS 08/28/17 09/03/17 History Apixaban [Eliquis] 5 mg PO BID #60 tablet 10/19/16 10/23/16 Rx Ciprofloxacin Tab [Cipro Tab] 500 mg PO DAILY #10 tablet 10/19/16 10/23/16 Rx Pantoprazole Tab [Protonix Tab] 40 mg PO DAILY #30 tablet 10/19/16 10/23/16 Rx Allergies Allergy/AdvReac Type Severity Reaction Status Date / Time acetaminophen [From Tylenol] Allergy Mild RASH Verified 10/17/16 12:25 Penicillins Allergy Mild UNRESPONSIV Verified 10/17/16 12:25 E Medical,Surgical,& Family Hx - Medical History Cardio: History of: Hypertension Neurology: History of: Cerebrovascular Accident (09/2016), Neurological Problems (Fulton's palsy) HEENT: History of: Eye Problem (reading glasses), HEENT Problems (Cataracts removed both eyes.) Endocrine: History of: Diabetes Mellitus (IDDM) Rheumatology: History of;: Gout Musculoskeletal: History of: Musculoskeletal Problems (Osteoarthritis) No history of: Amputation - Surgical History Cardiac Surgeries: Patient Denies: Femoral-Popliteal Bypass Graft, Cardiac Catheterization, Cardiac Surgery, Carotid Endarterectomy, Internal Defibrillator, Vascular Access Devices Thoracic Surgeries: Patient denies;: Kidney (Renal Surgery), Lithotripsy, Nephrectomy Comment Only: Organ Transplant (Skin graft from left thigh) Neurologic Surgeries: Patient denies: Neurologic Surgery HEENT Surgeries: Surgical HX of: Eye Surgery (Cataracts both eyes removed.) Patient denies: Carotid Endarterectomy, Tonsilectomy & Adenoidectomy Abdominal Surgeries: Patient denies: Abdominal Surgery, Appendectomy, Cholecystectomy, Colonoscopy , Gastric Bypass Surgery, EGD, Hernia Repair, Splenectomy Reproductive Surgeries: Patient denies;: Breast Surgery, Cystoscopy, Genitourinary Surgery, Prostate Surgery, Vasectomy Orthopedic Surgeries: Patient denies;: Implanted Devices, Orthopedic Surgery, Spinal Surgery, Total Hip Replacement, Total Knee Replacement - Family History Family History: Reports;: Family Cancer, Family Diabetes - Social History Smoking Status: Former smoker Frequency of Alcohol Use: None Type of Drug Use: None ROS unobtainable: due to encephalopathy Exam - Constitutional Vitals: Period Temp Pulse Resp BP Sys/Tatum Pulse Ox Last 24 Hr 97.3 F-97.9 F 67-75 16-22 135-164/69-82 93-99 General appearance: under weight Exam: Constitutional: Well-developed, somewhat malnourished appearing confused, and in minor distress Head and face: Head: Normocephalic atraumatic Eyes: Conjunctiva without injection, no gross scleral icterus, pupils meotic with bilateral lens implants in both eyes deviated to the left side. The patient's eyes do not track or fix. Ears: Intact to conversation in both ears Nose: External appearance is normal, nares patent Mouth: Oral mucous membranes somewhat dry with with mild erythema and somewhat eroded dentition Neck: Normal appearance, no masses or tenderness, trachea midline Thyroid: Gland midline and appropriate size for age Respiratory: Normal respiratory effort, decreased breath sounds in the bases but otherwise clear to auscultation without wheezes, rhonchi or rales Cardiovascular: Regular rate and rhythm, normal S1, S2, the exam is without rubs, murmurs or gallops. Gastrointestinal: Nontender to palpation, normal active bowel sounds, tone normal without rigidity or guarding, no masses present, no hepatomegaly, no spleen tip felt. Rectal exam shows black stool by report from nursing staff. Lymphatic: Neck without adenopathy, axilla without lymphadenopathy present Musculoskeletal: Right and left lower extremities with minimal evidence of edema, muscular wasting noted Skin and subcutaneous tissue: No rashes noted, normal skin turgor, digits and nails without clubbing/cyanosis/deformities. Neurologic: The patient completely disoriented he moans out with deep painful stimuli but otherwise does not follow commands or engage in conversation. Psychiatric: Unable to assess Results - Labs CBC & BMP: 10/25/16 09:23 10/25/16 09:27 Quality Measures - VTE Contraindication to Pharmacological VTE Prophylaxis: High Risk of Bleeding
--- NOTE | 2016-10-25 16:11 | Operative Note ---
Date of procedure: 10/25/16 Pre-op diagnosis: renal failure Post-op diagnosis: same Procedure: Preoperative diagnosis Renal failure with need for hemodialysis access Postoperative diagnosis Same Procedures performed 1. Right internal jugular vein tunneled hemodialysis catheter placement 2. Ultrasound guidance and interpretation of images 3. Fluoroscopic guidance and interpretation of images Findings The right internal jugular vein is compressible and it was accessed for hemodialysis access. The tip of the catheter was place in the right atrium. Patient tolerated procedure well and both ports worked well. Complications none apparent Specimen None Indications Renal failure with need for access for hemodialysis Description of procedure The patient was taken to the operating room and transferred to the operating table in the supine position. Pressure points are padded and SCDs placed lower extremity. Monitored anesthesia was administered and the neck was prepped and draped sterile fashion using chloride same. Preoperative antibiotics were administered and a timeout was performed. Ultrasound was used to identify the internal jugular vein and local anesthetic was infiltrated around the vein. Local anesthetic was also administered around the planned tract site down to the anterior chest wall below the clavicle. The vein was accessed on first stick and nonpulsatile venous blood was obtained. A wire was placed using Seldinger technique. An incision was made alongside the wire using a long blade scalpel and a separate incision below the clavicle was made with an 11 blade scalpel. A 19 cm catheter was tunneled from the chest incision into the neck wound and a dilator peel-away sheath was placed over the wire. The wire and dilator was removed and the catheter was placed to the peel-away sheath. The catheter was secured in place in the right atrium on fluoroscopic images. Both returned blood easily and were flushed with heparin. The catheter was secured in place using 3-0 nylon sutures and the neck incision was closed with 3 -0 nylon suture. Sterile dressings were applied. The patient was awakened from anesthesia and transferred to recovery. Postoperative plan Begin hemodialysis and obtained chest x-ray postop Implants: Tunneled hemodialysis catheter Anesthesia: MAC, local Surgeon / Physician: Peyman Fontana Estimated blood loss: minimal Specimens: none sent Condition: stable Disposition: PACU Results - Labs CBC & BMP: 10/25/16 09:23 10/25/16 09:27 Discharge Plan - Discharge Medications No Action Insulin NPH/Regular 70/30 [HumuLIN 70/30] 25 unit SUBCUT AC SUPPER #1 unit amLODIPine [Norvasc] 10 mg PO DAILY #30 Insulin Regular [HumuLIN R] See Protocol SUBCUT ACHS Pantoprazole Tab [Protonix Tab] 40 mg PO DAILY #30 tablet Insulin NPH/Regular 70/30 [HumuLIN 70/30] 30 unit SUBCUT AC BREAKFAST #1 unit Rosuvastatin [Crestor] 40 mg PO BEDTIME #30 tablet Apixaban [Eliquis] 5 mg PO BID #60 tablet Ciprofloxacin Tab [Cipro Tab] 500 mg PO DAILY #10 tablet - Follow Up or Referral - Forms/Instructions
--- NOTE | 2016-10-25 16:18 | Anesthesia Post-Op ---
Anesthesia Post OP - Post Ansesthetic Evaluation Patient seen in post op: Yes Resp: within normal limits CV: within normal limits Mental: within normal limits Temp: within normal limits [id number]: within normal limits Nausea and Vomiting: within normal limits Pain: within normal limits
[2016-10-25] MEDS ORDERED: fentaNYL 100 MCG/2 ML VIAL ONE (16:28)
[2016-10-25] MEDS ORDERED: KETAMINE 500 MG/10 ML VIAL ONE (16:28)
[2016-10-25] MEDS ORDERED: MIDAZOLAM 2 MG/2 ML VIAL ONE (16:29)
[2016-10-25] MEDS ORDERED: SODIUM CHLORIDE 0.9% 250 ML IV ONE (16:29)
[2016-10-25] MEDS ORDERED: ceFAZolin 1,000 MG VIAL ONE (16:30)
[2016-10-25] MEDS ORDERED: ONDANSETRON 4 MG/2 ML VIAL IV PRN (16:32)
[2016-10-25] MEDS ORDERED: HYDROmorphone 2 MG/1 ML VIAL IV PRN (16:32)
--- NOTE | 2016-10-25 16:37 | XRay Report ---
Exam: XR chest 1V portable Indication: Tunnel dialysis catheter placement Comparison study: Prior chest radiograph 10/24/2016 Findings: Right neck tunneled dialysis catheter is now noted in place. Tip terminates near the cavoatrial junction. There is no pneumothorax. Cardiac silhouette and mediastinal contours appear similar to prior. Osseous structures are stable. Impression: Interval placement of a right IJ approach tunneled dialysis catheter with no acute complication. PROCEDURE INTERPRETED AT [facility] DEPARTMENT OF RADIOLOGY Final Report Signed by: Jose Sykes
[2016-10-25] MEDS ORDERED: SODIUM CHLORIDE 0.9% 250 ML IV SCH (17:00)
[2016-10-25] MEDS ORDERED: HEPARIN 10,000 UNIT/10 ML VIAL IV PRN (17:25)
--- NOTE | 2016-10-25 19:05 | Dialysis Note ---
Dialysis Note - Dialysis Note Patient is seen on dialysis. He is tolerating the procedure. Blood pressure 154/72 pulse is 73. Patient is more awake this afternoon while on dialysis. Receiving 2 units packed red blood cells. Cardiovascular is regular rate. Lungs are clear to auscultation. Abdomen is soft.
[2016-10-25] MEDS: ROSUVASTATIN 20 MG TABLET PO SCH (21:00)
[2016-10-25] MEDS: PANTOPRAZOLE 40 MG VIAL IV SCH (21:11)
--- NOTE | 2016-10-25 21:30 | Interventional Radiology Rpt ---
IR fluoro guide cv cath Clinical Information: Intraoperative fluoroscopy for dialysis catheter placement by Dr. Fontana Total fluoroscopy time:10SEC Comparison: None Findings: Intraoperative images demonstrate a right IJ approach dialysis catheter in position. Exact positioning of the catheter tip is not well visualized but appears to terminate near the lower SVC or cavoatrial junction. Images were evaluated by the attending surgeon at time of the procedure. Impression: Intraoperative fluoroscopy as detailed above PROCEDURE INTERPRETED AT [facility] DEPARTMENT OF RADIOLOGY Final Report Signed by: Jose Sykes
[2016-10-25 22:55] LABS: Hematocrit 25.2 VOL% (42.0-52.0); Hemoglobin 8.7 GM/DL (14.0-18.0)
[2016-10-26 02:08] LABS: Calcium 7.4 MG/DL (8.5-10.1); Potassium 3.7 MMOL/L (3.5-5.1)
[2016-10-26 04:22] LABS: Basophils % 0.3 % (0.0-0.8); Eosinophils # 0.3 10*3/uL (0.0-0.87); Eosinophils % 2.5 % (0.00-10.9); Hematocrit 24.4 VOL% (42.0-52.0); Hemoglobin 8.3 GM/DL (14.0-18.0); Immature Granulocytes % 0.6 %; Immature Granulocytes Absolute 0.07 #; Lymphocytes # 2.1 10*3/uL (1.4-4.0); Lymphocytes % 17.6 % (21.2-54.2); Mean Corpuscular Hemoglobin 27 PG (27-34); Mean Corpuscular Volume 79.7 FL (87-102); Mean Platelet Volume 9.8 FL (9.6-12.0); Monocytes # 0.9 10*3/uL (0.11-0.8); Monocytes % 7.8 % (1.7-12.7); Neutrophils # 8.4 10*3/uL (1.4-7.4); Neutrophils % 71.2 % (38.7-73.9); Platelet Count 246 T/CUMM (130-400); Red Blood Count 3.06 MC/CUMM (3.8-5.5); White Blood Count 11.7 T/CUMM (4-12)
[2016-10-26 04:50] LABS: Calcium 7.5 MG/DL (8.5-10.1); Magnesium 2.1 MG/DL (1.8-2.4); Potassium 3.7 MMOL/L (3.5-5.1)
[2016-10-26 07:50] LABS: Hepatitis A Ab IgM Quant 0.05 Index; Hepatitis A Ab IgM Result Negative (Negative); Hepatitis B Core IgM Result Negative (Negative); Hepatitis C Virus Ab Result Negative (Negative)
[2016-10-26 07:51] LABS: Hepatitis B Core IgM Quant 0.13 Index; Hepatitis C Virus Ab Quant 0.13 Index
[2016-10-26] MEDS ORDERED: LIDOCAINE 1% 5 ML VIAL ONE (08:46)
[2016-10-26] MEDS ORDERED: PROPOFOL 200 MG/20 ML VIAL IV ONE (08:46)
[2016-10-26 09:14] LABS: Hepatitis B Surface Ag Quant 0.15 Index; Hepatitis B Surface Ag Result Negative (Negative)
--- NOTE | 2016-10-26 09:14 | Operative Note ---
Date of procedure: 10/26/16 Pre-op diagnosis: Melena, black stools, hematocrit down to 21.7%--> 24.4 post 2 u. PRBCs Post-op diagnosis: other (No gross evidence of bleeding in the stomach, 2 small biopsies obtained for mild gastritis and a single erosion. No source for bleeding identified. Torus palantine is severe periodontal disease noted incidentally.) Procedure: PROCEDURE: Esophagogastroduodenoscopy (EGD) with cold biopsy for pathology REFERRING PHYSICIAN: Dr. Barbara Bolton MD INDICATIONS: This patient has a hematocrit dropped to 21.7% and black stools 3 with potential upper GI bleeding, he has come up to 24.4% post 2 units given on dialysis yesterday. It is difficult to tell how much abdominal pain he has since he is relatively nonverbal. Eliquis has been discontinued in this patient. The prior H&P was reviewed and interrim changes are as noted: No change from GI consultation yesterday ENDOSCOPIST: Thien Garcia MD ENDOSCOPE: Olympus Video 100 System upper endoscope ASA CLASS: 4 EXAM: CV: regular rate and rhythm respiratory: Clear without wheezes abdominal: active bowel sounds MEDICATION: Per nursing anesthesia protocol, see their notes PROCEDURE: After discussion of the potential risks and benefits of upper endoscopy, the informed consent was obtained. The patient was then placed in the left lateral decubitus position where sedation was achieved as noted above. Esophageal intubation was performed without difficulty, and the endoscope was advanced through the esophagus, stomach and duodenum. A slow withdrawal was then performed with retroflexion in the stomach for careful inspection of the incisura angularis, fundus and cardia. The scope was then returned to a neutral position and withdrawn through the esophagus. The patient tolerated the procedure well and without complication. BIOPSIES: Gastric antrum/body PHOTOGRAPHS: Obtained FINDINGS: Hypopharynx and Larynx: Normal, aside from a torus palantine and severe periodontal disease. Esohagoscopy Upper and middle thirds: Normal Lower third normal Esophogastric junctions: No gross evidence of esophagitis, Silvestre's, Makayla-Teresa tear or other source of bleeding. Gastroscopy: Cardia/Fundus: No hiatal hernia, no fluid or blood in the stomach noted Body: Very mild erythema was patchy, single biopsy taken Antrum and pylorus 1 single erosion which was quite small, this was biopsied Duodenoscopy: Bulb normal-appearing, no biopsies for sprue Second and third portions: Normal-appearing, no biopsies for sprue due to recent anticoagulation. IMPRESSION: No gross evidence of bleeding in the stomach, 2 small biopsies obtained for mild gastritis and a single erosion. No source for bleeding identified. Torus palantine is severe periodontal disease noted incidentally. RECOMMENDATIONS: Follow up for biopsy results in 1-2 weeks by phone [phone] Continue anti-gastroesophageal reflux measures (avoid carbonated and acidic beverages, avoid eating within 2 hours of bedtime, avoid tight fitting clothing , and elevate the front bed posts 6 inches prior to sleeping. Given the drop in the patient's hematocrit to 21%, will arrange for colonoscopy for tomorrow. Thien Garcia MD COPY TO: Dr. Barbara Bolton MD Anesthesia: MAC Surgeon / Physician: Thien Garcia Estimated blood loss: minimal Specimens: other (Gastric antrum/body 2 bites.) Condition: stable Disposition: post procedure unit ([facility]I. Suite) Results - Labs CBC & BMP: 10/26/16 03:36 10/26/16 03:36 Discharge Plan - Discharge Medications No Action Insulin NPH/Regular 70/30 [HumuLIN 70/30] 25 unit SUBCUT AC SUPPER #1 unit amLODIPine [Norvasc] 10 mg PO DAILY #30 Insulin Regular [HumuLIN R] See Protocol SUBCUT ACHS Pantoprazole Tab [Protonix Tab] 40 mg PO DAILY #30 tablet Insulin NPH/Regular 70/30 [HumuLIN 70/30] 30 unit SUBCUT AC BREAKFAST #1 unit Rosuvastatin [Crestor] 40 mg PO BEDTIME #30 tablet Apixaban [Eliquis] 5 mg PO BID #60 tablet Ciprofloxacin Tab [Cipro Tab] 500 mg PO DAILY #10 tablet - Follow Up or Referral - Forms/Instructions
--- NOTE | 2016-10-26 09:21 | Anesthesia Post-Op ---
Anesthesia Post OP - Post Ansesthetic Evaluation Patient seen in post op: Yes Resp: within normal limits CV: within normal limits Mental: within normal limits Temp: within normal limits [id number]-Ww-[id number]: within normal limits Nausea and Vomiting: within normal limits Pain: within normal limits
--- NOTE | 2016-10-26 09:25 | Gastrointestinal Progress Note ---
Assessment and Plan (1) Gastrointestinal hemorrhage with melena Status: Acute Assessment and plan: The patient has certainly decrease in hematocrit from earlier back and August when this was above 40% all the way down 21% now. He has had 3 black stools in the face of Eliquis use this speaks to an upper GI bleed above the ligament of Treitz possibly esophagitis, gastritis, peptic ulcer disease, gastric cancer, or duodenitis. Dieulafoy's lesions remain in the differential as does esophageal cancer. Patient is also suffered a mental status change which may or may not be related to the above. If the patient can go to get his dialysis today and get transfused with a hematocrit of hopefully above 26%. We should be able to tolerate a upper endoscopy tomorrow provided his potassium has not elevated significantly from its current level, or improved. I did discuss the situation with the dialysis staff. He will be getting his blood with dialysis being given at the time of this dictation. 10/26/16--the patient had his EGD performed today, there was no gross evidence of a bleeding source seen. There was a single erosion noted in the stomach that was biopsied and only 2 biopsies were obtained due to recent use of anticoagulation. Given the hematocrit dropped to 21% the fact this patient has no documented previous colonoscopy I have written for a colon prep to be given with Abhijit and for us to proceed with his second procedure tomorrow. His hematocrit did increase slightly with the transfusion going up to 24.4%. Further recommendations post colonoscopy to be performed tomorrow. Current Visit: Yes (2) Acute posthemorrhagic anemia Status: Acute Assessment and plan: Agree with plan for transfusion and then dialysis will come concommitment obtaining both of these goals of the same time. I have increased the patient's Protonix to 40 mg IV twice daily to ensure that he is not throwing this up, we can certainly start him on some liquid feeding today. We may advance his diet tomorrow depending on findings of upper endoscopy but he can undergo this tomorrow morning. Risks of the procedure were discussed with his son and include but are not limited to: Bleeding, infection, difficulty swallowing, cardiac and pulmonary compromise. 10/26/16--Hematocrit increased slightly with his last transfusion, will continue to monitor this. I do not see any further entries about black stools but will continue to watch, no upper source identified. We will perform colonoscopy tomorrow, provided this patient can get adequately prepped. Current Visit: Yes (3) Moderate malnutrition Status: Acute Assessment and plan: We will have dietary see the patient this admission help with a plan to increase his lean body mass. He might benefit from Nepro shakes later in the admission. The patient has a right-sided Fulton's palsy and may be experiencing some decreased desire to eat secondary to potential encephalopathy. Neurology can certainly weigh in more effectively on this than I given my specialty. We can always consider PEG tube down the road if patient requires this. 10/26/16--This patient is having encephalopathy at the present time, he can have a clear liquid diet today. We will proceed with colonoscopy tomorrow to identify bleeding source potentially. Current Visit: Yes (4) Anorexia Status: Acute Assessment and plan: We will see if we can improve his appetite later on the admission by suppressing the acidity in the stomach and improving waste filtration of his urine. 10/26/16--this patient did not have severe esophagitis, gastritis, or duodenitis. Protonix once daily should certainly suppress the level acidity he has. We will see if his appetite improves with improvement of his kidney function eventually. It is also notable that the patient has very severe periodontal disease this could represent a source of infection, now and in the future. Current Visit: Yes Gastroenterology - PN: Subj Interval history: No changes from yesterday. Exam (Progress Note) - Constitutional Vitals: Period Temp Pulse Resp BP Sys/Tatum Pulse Ox Last 24 Hr 97.1 F-98.0 F 59-91 14-21 89-148/47-79 95-100 General appearance: no acute distress - Head Head exam: Present: normocephalic - Eye Eye exam: Present: EOMI Pupils: Present: JANE - Respiratory Respiratory exam: Present: clear to auscultation bilaterally. Absent: rhonchi, stridor, wheezes - Cardiovascular Cardiovascular exam: Present: regular rate and rhythm - GI/Abdominal GI/Abdominal exam: Present: normal bowel sounds, distended - Extremities Exam Extremities exam: Present: normal inspection. Absent: edema - Neurological Exam Neurological exam: Present: alert, oriented X3. Absent: altered - Psychiatric Psychiatric exam: Present: normal affect, normal mood - Skin Skin exam: Present: warm Results - Labs CBC & BMP: 10/26/16 03:36 10/26/16 03:36
--- NOTE | 2016-10-26 09:26 | Family Practice Progress Note ---
Family Practice - PN: Subj Interval history: Consultants on case : Food Safety Director, neurologist, GI, pt admitted for hypoglycema, resolved, Altered Mental status , ARF currently on dialysis , GI bleed s/p EGD, and received blood transfusion , Has h/o DM, HTN , Hyperlipidemia,debility, transferred from [facility] pt seen and examined at dialysis unit, undergoing hemodialysis lying in bed, is confused , pt is makng incomprehensible sounds, follows 1-2 simple commands. has maroon colored BM , noticed while examining Exam (Progress Note) - Constitutional Vitals: Period Temp Pulse Resp BP Sys/Tatum Pulse Ox Last 24 Hr 97.1 F-98.0 F 59-91 14-21 89-148/47-79 95-100 Exam: Examination: GENERAL: Awake, in no acute distress , male pt, lying in the bed, noticed maroon colored BM HEENT: rt eye lagopthalmous, dry cornea, poor oral , dental hygeine, with halitosis, NECK: Neck is supple. No JVD. No carotid bruit. No thyromegaly. CVS: Regular rate and rhythm. S1 and S2 are normal. RESPIRATORY: Clear to ausculation bilaterally , No wheezes, rales or rhonchi. ABDOMEN: Soft and nontender. Bowel sounds are present. No hepatosplenomegaly. EXT: No edema. BUSINESS RULES DEVELOPER: Patient is awake, speech slurry, making incomprehensible sounds,rt eye lagopthalmous, loss of rt nasolabial fold, ( Rt fulton's palsy) deviation of angle of mouth to left, tip of tongue deviated to right, unable to assess Strength, but moving all limbs UE>LE Results - Labs CBC & BMP: 10/26/16 16:44 10/26/16 03:36 Lab Results: I have reviewed the past 24 hour labs Assessment and Plan (1) Acute renal failure Status: Acute Assessment and plan: on hemodialysis, will follow nephro recommendations, 2.Anemia,improving, s/p blood transfusions, EGd done today, possibly c-scope tomorrow AM,follow GI recommendations, 3. h/o CVA, rt fulton's palsy, follow neuro recommendations, not on anticoagulants currently, decreased swallowing , advised nurse, to see if he can swallow liquids, 4. DM , stable , continue sliding scale insulin, 5.HTN stable, not on antihypertensives currently 6. Hperlipedemia, continue crestor. discussed with pt son , this AM , pt's status, and also discussed about advance directives, Current Visit: Yes (2) Mental status change Status: Acute Current Visit: Yes (3) SEVERE HYPOGLYCEMIA Status: Resolved Current Visit: Yes (4) History of CVAs Status: Chronic Current Visit: Yes (5) Hyperlipidemia Status: Chronic Current Visit: Yes (6) Debility Status: Chronic Current Visit: Yes (7) Heme positive stool Status: Acute Current Visit: Yes (8) Hypertension Status: Chronic Current Visit: Yes (9) Diabetes mellitus Status: Chronic Current Visit: Yes Qualifiers: Diabetes mellitus type: type 2 (10) Right-sided Fulton's palsy Status: Chronic Current Visit: Yes (11) Anemia Status: Acute Current Visit: Yes Quality Measures - VTE Contraindication to Pharmacological VTE Prophylaxis: High Risk of Bleeding
[2016-10-26 11:06] LABS: Hematocrit 24.1 VOL% (42.0-52.0); Hemoglobin 8.2 GM/DL (14.0-18.0)
--- NOTE | 2016-10-26 12:41 | Dialysis Note ---
Dialysis Note - Dialysis Note Patient is seen on hemodialysis, he is tolerating this well will continue his treatment unchanged.
--- NOTE | 2016-10-26 15:35 | Neurology Consult Note ---
History of Present Illness History of present illness: Mr. Schneider is a 76 year old male transferred from [facility] with altered mental status and hypotension. 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 He participated well in therapy however he developed decreasing level of consciousness. He was found to have blood sugar of 30s. Subsequently he was transferred to [facility] for further evaluation. He was found to have GI bleed as well as worsening kidney functions. In the interim has been started on dialysis and Eliquis is on hold for possible PEG tube placement. He is alert and awake and trying to follow very simple commands occasionally. Home Medications Medication Instructions Recorded Confirmed Type Insulin NPH/Regular 70/30 [HumuLIN 25 unit SUBCUT AC SUPPER #1 unit 09/23/1605/06 Rx 70/30] Insulin NPH/Regular 70/30 [HumuLIN 30 unit SUBCUT AC BREAKFAST #1 unit 09/23/16 10/23/16 Rx 70/30] Rosuvastatin [Crestor] 40 mg PO BEDTIME #30 tablet 09/23/16 10/23/16 Rx amLODIPine [Norvasc] 10 mg PO DAILY #30 09/23/16 10/23/16 Rx Insulin Regular [HumuLIN R] See Protocol SUBCUT ACHS 10/17/16 10/23/16 History Apixaban [Eliquis] 5 mg PO BID #60 tablet 10/19/16 10/23/16 Rx Ciprofloxacin Tab [Cipro Tab] 500 mg PO DAILY #10 tablet 10/19/16 10/23/16 Rx Pantoprazole Tab [Protonix Tab] 40 mg PO DAILY #30 tablet 10/19/16 10/23/16 Rx Allergies Allergy/AdvReac Type Severity Reaction Status Date / Time acetaminophen [From Tylenol] Allergy Mild RASH Verified 10/17/16 12:25 Penicillins Allergy Mild UNRESPONSIV Verified 10/17/16 12:25 E ROS unobtainable: due to mental status Medical,Surgical,& Family Hx - Medical History Cardio: History of: Hypertension Neurology: History of: Cerebrovascular Accident (09/2016), Neurological Problems (Fulton's palsy) No history of: Seizures HEENT: History of: Eye Problem (reading glasses), HEENT Problems (Cataracts removed both eyes.) Endocrine: History of: Diabetes Mellitus (IDDM) Rheumatology: History of;: Gout Musculoskeletal: History of: Musculoskeletal Problems (Osteoarthritis) No history of: Amputation - Surgical History Cardiac Surgeries: Patient Denies: Femoral-Popliteal Bypass Graft, Cardiac Catheterization, Cardiac Surgery, Carotid Endarterectomy, Internal Defibrillator, Vascular Access Devices Thoracic Surgeries: Patient denies;: Kidney (Renal Surgery), Lithotripsy, Nephrectomy Comment Only: Organ Transplant (Skin graft from left thigh) Neurologic Surgeries: Patient denies: Neurologic Surgery HEENT Surgeries: Surgical HX of: Eye Surgery (Cataracts both eyes removed.) Patient denies: Carotid Endarterectomy, Tonsilectomy & Adenoidectomy Abdominal Surgeries: Patient denies: Abdominal Surgery, Appendectomy, Cholecystectomy, Colonoscopy , Gastric Bypass Surgery, EGD, Hernia Repair, Splenectomy Reproductive Surgeries: Patient denies;: Breast Surgery, Cystoscopy, Genitourinary Surgery, Prostate Surgery, Vasectomy Orthopedic Surgeries: Patient denies;: Implanted Devices, Orthopedic Surgery, Spinal Surgery, Total Hip Replacement, Total Knee Replacement - Family History Family History: Reports;: Family Cancer, Family Diabetes - Social History Smoking Status: Former smoker Frequency of Alcohol Use: None Type of Drug Use: None Exam - Constitutional Vitals: Period Temp Pulse Resp BP Sys/Tatum Pulse Ox Last 24 Hr 97.1 F-98.0 F 59-91 13-21 89-148/47-79 95-100 Exam: GENERAL: Patient is in no acute distress. NECK: Neck is supple. There is no JVD. No carotid bruits present. No thyroid masses. CVS: First and second heart sounds are normal. There is no S3 present. Regular rate and rhythm. RESPIRATORY: Lungs are clear to auscultation without any rales or rhonchi. ABDOMEN: Soft and non-tender. Bowel sounds are present. There is no hepatosplenomegaly. EXT: There is no palpable edema. Peripheral pulses are present. Skin: No rashes Central Nervous system: General: Alert, awake following commands occasional Speech: None fluent Comprehension: Somewhat impaired Facial expressions: Normal Cranial Nerves: CN1/Olfactory: Normal CN II/ Optic: Normal, Visual Gonzales unreliable CN III, and : JANE & EOMI CN V: Normal & intact CN VII: Right lower motor neuron type facial weakness CNVIII: Normal CN XI/X/XI/XII: Not tested Motor: Bulk and Tone is normal. Strength not tested Sensory: Unreliable Reflexes: 1+ and symmetrical Cerebellar function: Not tested Toes: Equivocal Gait: Cannot be tested Results - Labs CBC & BMP: 10/26/16 10:58 10/26/16 03:36 Assessment and Plan (1) Change in mental status Status: Acute Assessment and plan: This is multifactorial secondary to multiple metabolic etiologies. No evidence of new stroke. Continue current management. Mental status should improve with the correction of renal function and other metabolic derangements Current Visit: Yes (2) Acute CVA (cerebrovascular accident) Status: Acute Assessment and plan: Agree to hold Eliquis for possible PEG tube placement. Continue watchful observation. Current Visit: No
[2016-10-26] MEDS: SODIUM CHLORIDE 0.45% 1,000 ML IV SCH ×2 (16:19→23:46)
[2016-10-26] MEDS: PANTOPRAZOLE 40 MG VIAL IV SCH ×2 (16:19→20:49)
[2016-10-26] MEDS: INSULIN REGULAR 100 UNIT/ML SUBCUT SCH ×4 (16:22→22:00)
[2016-10-26 16:59] LABS: Hematocrit 24.1 VOL% (42.0-52.0); Hemoglobin 8.3 GM/DL (14.0-18.0)
[2016-10-26] MEDS ORDERED: POLYETHYLENE GLYCOL 3350/ELECTROLYTES 4,000 ML BOTTLE PO ONE (18:00)
--- NOTE | 2016-10-26 18:23 | XRay Report ---
Exam: XR chest 1V portable Indication: NG tube placement Comparison study: 10/25/2016 radiograph Findings: Weighted feeding tube is noted in position within the stomach. The study is otherwise similar to before. Impression: Weighted feeding tube within the stomach. PROCEDURE INTERPRETED AT [facility] DEPARTMENT OF RADIOLOGY Final Report Signed by: Jose Sykes
[2016-10-26] MEDS: BISACODYL 5 MG TABLET PO SCH ×2 (18:57→22:01)
[2016-10-26] MEDS: ROSUVASTATIN 20 MG TABLET PO SCH (20:49)
[2016-10-26] MEDS ORDERED: MAGNESIUM CITRATE 300 ML BOTTLE PO ONE (21:00)
[2016-10-26] MEDS: DOCUSATE SODIUM 100 MG CAPSULE PO SCH (22:05)
[2016-10-26 23:47] LABS: Hematocrit 23.4 VOL% (42.0-52.0); Hemoglobin 8.1 GM/DL (14.0-18.0)
[2016-10-27] MEDS: BISACODYL 5 MG TABLET PO SCH (03:04)
[2016-10-27] MEDS ORDERED: ZINC OXIDE PASTE 113 GM TUBE TOP PRN (05:51)
[2016-10-27 06:33] LABS: Basophils % 0.2 % (0.0-0.8); Eosinophils # 0.1 10*3/uL (0.0-0.87); Eosinophils % 0.7 % (0.00-10.9); Hematocrit 23.8 VOL% (42.0-52.0); Immature Granulocytes % 0.5 %; Immature Granulocytes Absolute 0.08 #; Lymphocytes # 2.2 10*3/uL (1.4-4.0); Lymphocytes % 13.6 % (21.2-54.2); Mean Corpuscular HGB Conc 33.6 GM/DL (32-36); Mean Corpuscular Hemoglobin 27 PG (27-34); Mean Platelet Volume 9.8 FL (9.6-12.0); Monocytes # 1.1 10*3/uL (0.11-0.8); Monocytes % 6.6 % (1.7-12.7); Neutrophils # 12.6 10*3/uL (1.4-7.4); Neutrophils % 78.4 % (38.7-73.9); Platelet Count 265 T/CUMM (130-400); Red Blood Count 2.94 MC/CUMM (3.8-5.5); Red Cell Distribution Width 13.6 % (9.3-17.3); White Blood Count 16.1 T/CUMM (4-12)
[2016-10-27 07:01] LABS: Calcium 7.5 MG/DL (8.5-10.1); Magnesium 2.3 MG/DL (1.8-2.4); Osmolality,Calculated 298.7 MOS/KG (273-304); Potassium 3.8 MMOL/L (3.5-5.1)
--- NOTE | 2016-10-27 07:42 | Operative Note ---
Date of procedure: 10/27/16 Pre-op diagnosis: Anemia with hematocrit of 23.8% post 2 unit transfusion Post-op diagnosis: other (This patient had a hint of proctitis that may have been due to previous constipation or prep artifact, otherwise the colon was completely clean with some mild left-sided diverticulosis and evidence of iron staining from previous oral intake of iron. No bleeding source seen no polyps no cancer in the terminal ileum appeared to be without evidence of Crohn's.) Procedure: PROCEDURE: Colonoscopy REFERRING PHYSICIAN: Barbara Bolton MD INDICATIONS: This is a patient who has what appeared to be melena and a drop in his hematocrit from 43% down to 21.3% now up to 23% status post transfusion on dialysis. EGD yesterday showed only minimal changes in the stomach and no explanation for the extreme blood loss. The prior H&P was reviewed and interrim changes are as noted: No change from GI consultation 2 days ago. ENDOSCOPIST: Thien Garcia MD ENDOSCOPE: Merku Video 100 System colonoscope COLON PREPARATION: Golytely 4 liters and dulcolax 15 mg po [id number] x 3 ASA CLASS: 4 EXAM: CV: regular rate and rhythm Respiratory: Clear without wheezes Abdominal: active bowel sounds Rectal: Good tone, no fissures or fistulas MEDICATION: Per nursing anesthesia protocol, see their notes PROCEDURE: After discussion of the potential risks and benefits of colonoscopy, the informed consent was obtained, from patient or health care surrogate. The patient was then placed in the left lateral decubitus position where sedation was achieved as noted above. Rectal examination was followed by insertion of the colonoscope. The colonoscope was passed under direct visualization to the cecum. Advancement was facilitated by insertion/withdrawl techniques, abdominal pressure and patient positioning. Once the cecal pole was reached, slow withdrawal was performed with the findings as noted below. The patient tolerated the procedure well and without complication. QUALITY OF PREP: Excellent WITHDRAWL TIME: 6 minutes 22 seconds BIOPSIES: Not obtained obtained PHOTOGRAPHS: FINDINGS: The musoca appeared normal in the following regions: rectum, sigmoid colon, descending colon, splenic flexure, transverse colon, hepatic flexure, ascending colon and cecum. Position within the cecum was confirmed by ileocecal valve, appendiceal oriface, and the convergence of folds (crows foot) . No polyp, mass or AVM was noted throughout the colon. There was a slight hint of proctitis noted in the rectum, this did not appear to be erosive and was not biopsied it may have been due to prep versus constipation in this region previously--it did not appear to be a source of major bleeding. Mild left-sided diverticulosis noted, particularly in the sigmoid. Intubation of the TI was achieved x 5 cm with normal appearence IMPRESSION: This patient had a hint of proctitis that may have been due to previous constipation or prep artifact, otherwise the colon was completely clean with some mild left-sided diverticulosis and evidence of iron staining from previous oral intake of iron. No bleeding source seen no polyps no cancer in the terminal ileum appeared to be without evidence of Crohn's. RECOMMENDATIONS: High fiber diet Repeat colonosocopy will be in 10 years or never depending on the health of the patient. Citrucel 1 tablespoon in 12 oz juice BID: 1 bottle: :11 Follow up by phone for biopsy results in 1-2 weeks by phone There was no bleeding source to explain the patient's drop in hematocrit this may be partially due to his renal dysfunction or there may have been a Dieulafoy 's lesion that opened and bled during Eliquis use. Not sure the linear gastritis was enough to explain the blood loss in this patient down to a hematocrit of 21%. If further blood loss is noted in the future would pursue capsule endoscopy as a final measure to look at the small bowel in between the reach of the EGD scope and colonoscopy. Thien Garcia MD COPY TO: Dr. Barbara Bolton MD Anesthesia: MAC Surgeon / Physician: Thien Garcia Estimated blood loss: none Specimens: other (cecum/ascending/descending/sigmoid) Condition: stable Disposition: post procedure unit ([facility]) Results - Labs CBC & BMP: 10/27/16 05:48 10/27/16 05:48 Discharge Plan - Discharge Medications No Action Insulin NPH/Regular 70/30 [HumuLIN 70/30] 25 unit SUBCUT AC SUPPER #1 unit amLODIPine [Norvasc] 10 mg PO DAILY #30 Insulin Regular [HumuLIN R] See Protocol SUBCUT ACHS Pantoprazole Tab [Protonix Tab] 40 mg PO DAILY #30 tablet Insulin NPH/Regular 70/30 [HumuLIN 70/30] 30 unit SUBCUT AC BREAKFAST #1 unit Rosuvastatin [Crestor] 40 mg PO BEDTIME #30 tablet Apixaban [Eliquis] 5 mg PO BID #60 tablet Ciprofloxacin Tab [Cipro Tab] 500 mg PO DAILY #10 tablet - Follow Up or Referral - Forms/Instructions
--- NOTE | 2016-10-27 07:46 | Gastrointestinal Progress Note ---
Assessment and Plan (1) Gastrointestinal hemorrhage with melena Status: Acute Assessment and plan: The patient has certainly decrease in hematocrit from earlier back and August when this was above 40% all the way down 21% now. He has had 3 black stools in the face of Eliquis use this speaks to an upper GI bleed above the ligament of Treitz possibly esophagitis, gastritis, peptic ulcer disease, gastric cancer, or duodenitis. Dieulafoy's lesions remain in the differential as does esophageal cancer. Patient is also suffered a mental status change which may or may not be related to the above. If the patient can go to get his dialysis today and get transfused with a hematocrit of hopefully above 26%. We should be able to tolerate a upper endoscopy tomorrow provided his potassium has not elevated significantly from its current level, or improved. I did discuss the situation with the dialysis staff. He will be getting his blood with dialysis being given at the time of this dictation. 10/26/16--the patient had his EGD performed today, there was no gross evidence of a bleeding source seen. There was a single erosion noted in the stomach that was biopsied and only 2 biopsies were obtained due to recent use of anticoagulation. Given the hematocrit dropped to 21% the fact this patient has no documented previous colonoscopy I have written for a colon prep to be given with GoLYTELY and for us to proceed with his second procedure tomorrow. His hematocrit did increase slightly with the transfusion going up to 24.4%. Further recommendations post colonoscopy to be performed tomorrow. 10/27/16--colonoscopy demonstrated the following: This patient had a hint of proctitis that may have been due to previous constipation or prep artifact, otherwise the colon was completely clean with some mild left-sided diverticulosis and evidence of iron staining from previous oral intake of iron. No bleeding source seen no polyps no cancer and the terminal ileum appeared to be without evidence of Crohn's. The patient may have had a Dieulafoy's lesion that opened up with use of Eliquis however the mild linear gastritis probably was not a major source for bleeding in this patient. Right now the bleeding source remains a mystery although some of this anemia is attributable to his renal dysfunction. I would like to watch and see how her hematocrit does over time as he is dialyzed. We may wish to do a capsule endoscopy at some point in the future to rule out the 5% bleeding that occurs in the small bowel between upper and lower scopes. Current Visit: Yes (2) Acute posthemorrhagic anemia Status: Acute Assessment and plan: Agree with plan for transfusion and then dialysis will come concommitment obtaining both of these goals of the same time. I have increased the patient's Protonix to 40 mg IV twice daily to ensure that he is not throwing this up, we can certainly start him on some liquid feeding today. We may advance his diet tomorrow depending on findings of upper endoscopy but he can undergo this tomorrow morning. Risks of the procedure were discussed with his son and include but are not limited to: Bleeding, infection, difficulty swallowing, cardiac and pulmonary compromise. 10/26/16--Hematocrit increased slightly with his last transfusion, will continue to monitor this. I do not see any further entries about black stools but will continue to watch, no upper source identified. We will perform colonoscopy tomorrow, provided this patient can get adequately prepped. 10/27/16--as noted above. Hematocrit is down slightly, I will defer to nephrology to decide whether or not he needs another 2 units of blood during dialysis. Current Visit: Yes (3) Moderate malnutrition Status: Acute Assessment and plan: We will have dietary see the patient this admission help with a plan to increase his lean body mass. He might benefit from Nepro shakes later in the admission. The patient has a right-sided Fulton's palsy and may be experiencing some decreased desire to eat secondary to potential encephalopathy. Neurology can certainly weigh in more effectively on this than I given my specialty. We can always consider PEG tube down the road if patient requires this. 10/26/16--This patient is having encephalopathy at the present time, he can have a clear liquid diet today. We will proceed with colonoscopy tomorrow to identify bleeding source potentially. 10/27/16--the patient is a Dobbhoff feeding tube will likely start to get Nepro feeding here in the near future since he cognitively is not able to understand to eat/swallow effectively. If PEG tube is needed in the future, I will be happy to provide this service. Current Visit: Yes (4) Anorexia Status: Acute Assessment and plan: We will see if we can improve his appetite later on the admission by suppressing the acidity in the stomach and improving waste filtration of his urine. 10/26/16--this patient did not have severe esophagitis, gastritis, or duodenitis. Protonix once daily should certainly suppress the level acidity he has. We will see if his appetite improves with improvement of his kidney function eventually. It is also notable that the patient has very severe periodontal disease this could represent a source of infection, now and in the future. 10/27/16--as noted above. Current Visit: Yes Gastroenterology - PN: Subj Interval history: No change in mentation, Dobbhoff feeding tube placed Exam (Progress Note) - Constitutional Vitals: Period Temp Pulse Resp BP Sys/Tatum Pulse Ox Last 24 Hr 97.3 F-99.0 F 69-91 13-22 89-144/47-77 96-100 General appearance: mild distress - Head Head exam: Present: normocephalic - Eye Eye exam: Present: EOMI Pupils: Present: JANE - ENT ENT exam: Present: normal exam - Respiratory Respiratory exam: Present: clear to auscultation bilaterally - Cardiovascular Cardiovascular exam: Present: regular rate and rhythm - GI/Abdominal GI/Abdominal exam: Present: normal bowel sounds, soft. Absent: distended, tenderness, rebound - Extremities Exam Extremities exam: Absent: edema - Neurological Exam Neurological exam: Present: altered (Patient appears somnolent and minimally reactive mostly to deep painful stimuli) - Psychiatric Psychiatric exam: Present: flat affect - Skin Skin exam: Present: warm Results - Labs CBC & BMP: 10/27/16 05:48 10/27/16 05:48
--- NOTE | 2016-10-27 07:57 | Anesthesia Post-Op ---
Anesthesia Post OP - Post Ansesthetic Evaluation Patient seen in post op: Yes Resp: within normal limits CV: within normal limits Mental: other (mental status returned to preop status) Temp: within normal limits Ffiw-In-Wpzjafufv: within normal limits Nausea and Vomiting: within normal limits Pain: within normal limits
--- NOTE | 2016-10-27 08:47 | Family Practice Progress Note ---
Family Practice - PN: Subj Interval history: Consultants on case : Bending Machine Operator, neurologist, GI, pt admitted for hypoglycema, resolved, Altered Mental status,, ARF currently on dialysis , GI bleed s/p EGD and c-scope, and received blood transfusion , Has h/o DM, HTN , Hyperlipidemia,debility, Son at the bedside, pt seen and examined at 2 E., is status post C scope, drowsy, but arousable Noticed the patient is able to close his right eye completely. No overnight events reported by the nurse, as per the SON, Patient Is Recognizing Him. Exam (Progress Note) - Constitutional Vitals: Period Temp Pulse Resp BP Sys/Tatum Pulse Ox Last 24 Hr 98.3 F-99.0 F 64-74 13-22 89-135/44-69 95-100 Exam: Examination: GENERAL: Awake, in no acute distress , male pt, drowsy but arousable, HEENT: poor oral , dental hygeine, with halitosis, NECK: Neck is supple. No JVD. No carotid bruit. No thyromegaly. CVS: Regular rate and rhythm. S1 and S2 are normal. RESPIRATORY: Clear to ausculation bilaterally , No wheezes, rales or rhonchi. ABDOMEN: Soft and nontender. Bowel sounds are present. No hepatosplenomegaly. EXT: No edema. Results - Labs CBC & BMP: 10/27/16 09:42 10/27/16 05:48 Lab Results: I have reviewed the past 24 hour labs Assessment and Plan (1) Acute renal failure Status: Acute Assessment and plan: on hemodialysis, BUN/creatinine 40/4.5 improving, will follow nephro recommendations, 2.Anemia,improving, H&H, 8.3/24.6 today , s/p blood transfusions, EGd, C scope done ,follow GI recommendations, Will reevaluate for swallowing, consult dietitian, continue IV fluids 3. h/o CVA, rt fulton's palsy, follow neuro recommendations, not on anticoagulants currently, 4. DM , stable , continue sliding scale insulin, 5.HTN stable, not on antihypertensives currently 6. Hperlipedemia, continue crestor. discussed with pt son , this AM , pt's status, Current Visit: Yes (2) Mental status change Status: Acute Current Visit: Yes (3) SEVERE HYPOGLYCEMIA Status: Resolved Current Visit: Yes (4) History of CVAs Status: Chronic Current Visit: Yes (5) Hyperlipidemia Status: Chronic Current Visit: Yes (6) Debility Status: Chronic Current Visit: Yes (7) Heme positive stool Status: Acute Current Visit: Yes (8) Hypertension Status: Chronic Current Visit: Yes (9) Diabetes mellitus Status: Chronic Current Visit: Yes Qualifiers: Diabetes mellitus type: type 2 (10) Right-sided Fulton's palsy Status: Chronic Current Visit: Yes (11) Anemia Status: Acute Current Visit: Yes Quality Measures - VTE Contraindication to Pharmacological VTE Prophylaxis: High Risk of Bleeding
[2016-10-27] MEDS: INSULIN REGULAR 100 UNIT/ML SUBCUT SCH ×4 (08:51→21:21)
[2016-10-27 09:58] LABS: Hematocrit 24.6 VOL% (42.0-52.0); Hemoglobin 8.3 GM/DL (14.0-18.0)
[2016-10-27] MEDS: PANTOPRAZOLE 40 MG VIAL IV SCH ×2 (10:02→21:20)
[2016-10-27] MEDS ORDERED: PROPOFOL 200 MG/20 ML VIAL IV ONE (11:00)
[2016-10-27] MEDS ORDERED: LIDOCAINE 100 MG/5 ML SYRINGE ONE (11:00)
--- NOTE | 2016-10-27 15:05 | Nephrology Progress Note ---
Nephrology - PN: Subj Interval history: This patient has been transferred back to [facility] over weekend due to GI bleed. The patient's serum creatinine is noted to be elevated. He is scheduled for dialysis after the dialysis catheter is placed. Family members are at the bedside and have been updated. 10/27/2016. Patient is resting. We will start trickle feeds of Nepro today. Exam (PN)-Nephrology - Vital Signs Vital signs: Period Temp Pulse Resp BP Sys/Tatum Pulse Ox Last 24 Hr 97.0 F-99.0 F 64-74 13-22 97-152/44-72 95-100 - General Appearance General appearance: fatigue, frail Respiratory: clear Cardiology: regular rate, regular rhythm Gastrointestinal: normoactive bowel sounds Integumentary: no rash Neurologic: confused Musculoskeletal: no deformities - Lab 10/27/16 09:42 10/27/16 05:48 Most recent lab results Calcium 7.5 MG/DL (8.5-10.1) L 10/27/16 05:48 Magnesium 2.3 MG/DL (1.8-2.4) 10/27/16 05:48 Assessment and Plan (1) Anemia Status: Chronic Current Visit: Yes (2) Uncontrolled hypertension Status: Chronic Current Visit: No (3) Uncontrolled diabetes mellitus Status: Chronic Current Visit: No Qualifiers: Diabetes mellitus type: type 2 Diabetes mellitus complication status: with kidney complications Diabetes mellitus complication detail: with chronic kidney disease Chronic kidney disease stage: on chronic dialysis (4) Essential hypertension Status: Chronic Current Visit: No (5) Heme positive stool Status: Resolved Assessment and plan: Will give 2 units PRBCs on dialysis. Current Visit: Yes (6) Acute CVA (cerebrovascular accident) Status: Acute Current Visit: No (7) Acute renal failure Status: Acute Assessment and plan: Now will need dialysis. Ask for dialysis catheter Will transfuse 2 units PRBCs on dialysis. Hepatitis panel Current Visit: Yes
[2016-10-27] MEDS: SODIUM CHLORIDE 0.45% 1,000 ML IV SCH (15:51)
[2016-10-27 17:03] LABS: Hemoglobin 7.6 GM/DL (14.0-18.0)
--- NOTE | 2016-10-27 18:17 | Pathology Report from [facility] ---
[facility] ACCESSION # : [id number] PATIENT NAME : Shaylee Schneider ORDERING DR : Thien Garcia MD CLINICAL HX: Anemia, GI bleed POST-OP DX: Same SPECIMEN INFO: JOCE GROSS DESCRIPTION: The specimen is received in formalin labeled with the patients name and consists of two lafleur tissue fragments measuring 0.6 x 0.2 cm collectively. Submitted in one cassette. DIAGNOSIS FOR SHAYLEE SCHNEIDER: GASTRIC BIOPSIES: Moderate chronic and focal active gastritis. H. pylori not seen on H&E or special stain with appropriate control. COLLECTED DATE: 10/26/2016 [facility] REPORT DATE: 10/27/2016 ELECTRONICALLY SIGNED BY: Sofiya Huitron M.D. 10/27/2016 - 12:09:26 [facility]
[2016-10-27] MEDS: ROSUVASTATIN 20 MG TABLET PO SCH (21:21)
[2016-10-27 22:41] LABS: Hematocrit 21.8 VOL% (42.0-52.0); Hemoglobin 7.3 GM/DL (14.0-18.0)
[2016-10-28] MEDS: SODIUM CHLORIDE 0.45% 1,000 ML IV SCH (04:32)
[2016-10-28 06:58] LABS: Bilirubin,Total 0.8 MG/DL (0.2-1.0); Calcium 7.5 MG/DL (8.5-10.1); Osmolality,Calculated 301.7 MOS/KG (273-304); Potassium 3.4 MMOL/L (3.5-5.1); Total Protein 6.1 G/DL (6.4-8.3)
[2016-10-28 07:02] LABS: Phosphorous 4.2 MG/DL (2.5-4.9); Prealbumin 10.4 MG/DL (20-40)
[2016-10-28 07:14] LABS: Basophils % 0.3 % (0.0-0.8); Eosinophils # 0.3 10*3/uL (0.0-0.87); Hematocrit 22.3 VOL% (42.0-52.0); Hemoglobin 7.3 GM/DL (14.0-18.0); Immature Granulocytes % 0.6 %; Immature Granulocytes Absolute 0.08 #; Lymphocytes # 2.1 10*3/uL (1.4-4.0); Lymphocytes % 15.9 % (21.2-54.2); Mean Corpuscular HGB Conc 32.7 GM/DL (32-36); Mean Corpuscular Hemoglobin 27 PG (27-34); Mean Corpuscular Volume 82.6 FL (87-102); Mean Platelet Volume 9.9 FL (9.6-12.0); Monocytes # 0.9 10*3/uL (0.11-0.8); Monocytes % 7.1 % (1.7-12.7); Neutrophils # 9.8 10*3/uL (1.4-7.4); Neutrophils % 74.1 % (38.7-73.9); Platelet Count 242 T/CUMM (130-400); Red Cell Distribution Width 13.8 % (9.3-17.3); White Blood Count 13.2 T/CUMM (4-12)
[2016-10-28] MEDS ORDERED: amLODIPine 5 MG TABLET PO SCH (09:00)
--- NOTE | 2016-10-28 09:01 | Dialysis Note ---
Dialysis Note - Dialysis Note Mr. Schneider is seen during his hemodialysis. He is tolerating it well. He is awake and hemodynamically stable.
--- NOTE | 2016-10-28 09:01 | Discharge Summary ---
Hospital Course - Hospital Course Hospital Course: Consultants on case : Neurologist, Senior It Business Analyst, [place] Inspector, pt admitted for hypoglycema, Altered Mental status (multifactorial in origin), was hypotensive on admission, ARF getting worse, patient was transferred form [facility]. Has h/o DM, HTN , Hyperlipidemia, right-sided Fulton's palsy, CVA, debility, At the time of admission, it was noted from the history, which was obtained from the family, blood glucose was in the 30s when checked by EMS, for which needed several doses of D50.Had recent Fulton's palsy as well as cerebrovascular accident. Last [facility] admission for embolic CVA dated 10/17/2016 to , apparently previous discharge creatinine was 3.8, But current admission creatinine increased to 7.7. Auguste's was placed, urine analysis was sent, diesel service journeyman was consulted. His hypoglycemia resolved, was only put on sliding scale. On 10/25/2016 patient was noted to have maroon colored bowel movement, with stool occult blood positive. His home medication Eliquis was discontinued. GI was consulted, serial H&Hs, regular labs were followed, electrolytes were replaced as needed. Was n.p.o. as per speech therapist, since has difficulty swallowing. IV fluids , tried for liquid diet, which he could not tolerate, was advised tube feeding prior to discharge [id number] to continue at [facility]. His BUN/creatinine was getting worse for which hemodialysis was started as per the diesel service journeyman recommendation,pt received blood transfusions too, EGD was done on 10/26/2016, by Dr. Garcia,IMPRESSION: No gross evidence of bleeding in the stomach, 2 small biopsies obtained for mild gastritis and a single erosion. No source for bleeding identified. Torus palantine is severe periodontal disease noted incidentally. CT scope was done on 10/27/2016 after bowel prep: By Dr. Garcia,IMPRESSION: THis patient had a hint of proctitis that may have been due to previous constipation or prep artifact, otherwise the colon was completely clean with some mild left- sided diverticulosis and evidence of iron staining from previous oral intake of iron. No bleeding source seen no polyps no cancer in the terminal ileum appeared to be without evidence of Crohn's. RECOMMENDATIONS: High fiber diet Repeat colonosocopy will be in 10 years or never depending on the health of the patient. social media marketer was consulted for placement, patient was accepted at [facility]. All his home medications were adjusted prior to the discharge, will continue only sliding scale insulin, started Norvasc 5 mg p.o. daily for hypertension, and continued his Crestor. No aspirin/Eliquis for CVA was recommended, secondary to GI bleed. Please refer to the discharge medications. His UA was repeated, urine culture showed no growth from 10/28/2016 when last noted. Patient status was updated from time to time to the family regularly, pt is FULL CODE as per family request, Diagnosis - Discharge Diagnosis (1) Acute renal failure Status: Acute (2) Mental status change Status: Acute (3) SEVERE HYPOGLYCEMIA Status: Resolved (4) History of CVAs Status: Chronic (5) Hyperlipidemia Status: Chronic (6) Debility Status: Chronic (7) Heme positive stool Status: Resolved (8) Hypertension Status: Chronic (9) Diabetes mellitus Status: Chronic (10) Right-sided Fulton's palsy Status: Chronic (11) Anemia Status: Chronic Discharge Plan - Discharge Data Disposition: Disch/er- Rehab Fac Condition at Discharge: Stable Discharge Diet: other (continue tube feeding ) Activity: as per physical therapy - Discharge Medications New Insulin Regular [HumuLIN R] See Protocol SUBCUT ACHS unit amLODIPine [Norvasc] 5 mg PO DAILY tablet Ondansetron Inj [Zofran Inj] 4 mg IV Q6H PRN vial PRN Reason: Nausea/Vomiting Pantoprazole Inj [Protonix Inj] 40 mg IV BID vial Zinc Oxide Paste [Desitin Paste] 1 applic TOP PRN PRN applic PRN Reason: Diaper Rash Continue Rosuvastatin [Crestor] 40 mg PO BEDTIME #30 tablet Discontinued Insulin NPH/Regular 70/30 [HumuLIN 70/30] 25 unit SUBCUT AC SUPPER #1 unit amLODIPine [Norvasc] 10 mg PO DAILY #30 Insulin Regular [HumuLIN R] See Protocol SUBCUT ACHS Pantoprazole Tab [Protonix Tab] 40 mg PO DAILY #30 tablet Apixaban [Eliquis] 5 mg PO BID #60 tablet Ciprofloxacin Tab [Cipro Tab] 500 mg PO DAILY #10 tablet No Action Insulin NPH/Regular 70/30 [HumuLIN 70/30] 30 unit SUBCUT AC BREAKFAST #1 unit - Follow Up or Referral - Forms/Instructions Additional Discharge Instructions: has AUGUSTE IN PLACE, Exam - Constitutional Vitals: Period Temp Pulse Resp BP Sys/Tatum Pulse Ox Last 24 Hr 97.0 F-99.6 F 70-76 18-24 120-152/56-72 91-98 Exam: Examination: GENERAL: Awake, in no acute distress , male pt, confused, moving his limbs, making incomprehensible sounds HEENT: poor oral , dental hygeine, with halitosis, stained teeth secondary to EGD procedure. NECK: Neck is supple. No JVD. No carotid bruit. No thyromegaly. CVS: Regular rate and rhythm. S1 and S2 are normal. RESPIRATORY: Clear to ausculation bilaterally , No wheezes, rales or rhonchi. ABDOMEN: Soft and nontender. Bowel sounds are present. No hepatosplenomegaly. EXT: No edema. Discharge Results Procedures and tests throughout hospitalization: Pending Orders 10/28/16 08:58 UA [Urinalysis] Routine Urine Culture Routine Labs on day of discharge: Labs from last 24 hours 10/28/16 10/28/16 10/28/16 07:13 05:37 05:37 WBC 13.2 H RBC 2.70 L Hgb 7.3 L Hct 22.3 L MCV 82.6 L MCH 27 MCHC 32.7 RDW 13.8 Plt Count 242 MPV 9.9 Neut % (Auto) 74.1 H Lymph % (Auto) 15.9 L [place] % (Auto) 7.1 Eos % (Auto) 2.0 Baso % (Auto) 0.3 Neut # (Auto) 9.8 H Lymph # (Auto) 2.1 [place] # (Auto) 0.9 H Eos # (Auto) 0.3 Baso # (Auto) 0.0 Immature Gran % 0.6 Nucleated RBC % 0.0 Immature Gran # 0.08 Nucleated RBCs # 0.00 Immature Plt Fraction 0.0 Sodium 145 Potassium 3.4 L Chloride 110 H Carbon Dioxide 26 Anion Gap 12.4 BUN 48 H Creatinine 5.20 H GFR Calculation 13 BUN/Creatinine Ratio 9.00 Glucose 120 H POC Glucose 176 H Calculated Osmolality 301.7 Calcium 7.5 L Phosphorus Total Bilirubin 0.80 AST 69 H ALT 40 Alkaline Phosphatase 224 H Total Protein 6.1 L Albumin 2.0 L Globulin 4.1 H Albumin/Globulin Ratio 0.4 L Prealbumin 10/28/16 10/27/16 10/27/16 05:37 22:25 21:42 WBC RBC Hgb 7.3 L Hct 21.8 L MCV MCH MCHC RDW Plt Count MPV Neut % (Auto) Lymph % (Auto) [place] % (Auto) Eos % (Auto) Baso % (Auto) Neut # (Auto) Lymph # (Auto) [place] # (Auto) Eos # (Auto) Baso # (Auto) Immature Gran % Nucleated RBC % Immature Gran # Nucleated RBCs # Immature Plt Fraction Sodium Potassium Chloride Carbon Dioxide Anion Gap BUN Creatinine GFR Calculation BUN/Creatinine Ratio Glucose POC Glucose 115 H Calculated Osmolality Calcium Phosphorus 4.2 Total Bilirubin AST ALT Alkaline Phosphatase Total Protein Albumin Globulin Albumin/Globulin Ratio Prealbumin 10.4 L 10/27/16 10/27/16 10/27/16 16:28 15:25 11:07 WBC RBC Hgb 7.6 L Hct 23.0 L MCV MCH MCHC RDW Plt Count MPV Neut % (Auto) Lymph % (Auto) [place] % (Auto) Eos % (Auto) Baso % (Auto) Neut # (Auto) Lymph # (Auto) [place] # (Auto) Eos # (Auto) Baso # (Auto) Immature Gran % Nucleated RBC % Immature Gran # Nucleated RBCs # Immature Plt Fraction Sodium Potassium Chloride Carbon Dioxide Anion Gap BUN Creatinine GFR Calculation BUN/Creatinine Ratio Glucose POC Glucose 116 H 139 H Calculated Osmolality Calcium Phosphorus Total Bilirubin AST ALT Alkaline Phosphatase Total Protein Albumin Globulin Albumin/Globulin Ratio Prealbumin 10/27/16 10/27/16 09:42 09:05 WBC RBC Hgb 8.3 L Hct 24.6 L MCV MCH MCHC RDW Plt Count MPV Neut % (Auto) Lymph % (Auto) [place] % (Auto) Eos % (Auto) Baso % (Auto) Neut # (Auto) Lymph # (Auto) [place] # (Auto) Eos # (Auto) Baso # (Auto) Immature Gran % Nucleated RBC % Immature Gran # Nucleated RBCs # Immature Plt Fraction Sodium Potassium Chloride Carbon Dioxide Anion Gap BUN Creatinine GFR Calculation BUN/Creatinine Ratio Glucose POC Glucose 109 H Calculated Osmolality Calcium Phosphorus Total Bilirubin AST ALT Alkaline Phosphatase Total Protein Albumin Globulin Albumin/Globulin Ratio Prealbumin - Impressions Blood culture from 10/22/2016 showed no growth for 5 days. - Imaging and Cardiology Procedure: Chest x-ray: report reviewed by me, image reviewed by me DS: Provider Date of admission: 10/22/16 22:42 Primary care physician: . No PCP Attending physician on admission: Barbara Bolton MD Consults: 10/22/16 22:48 Consult to Case Mgmt/Social Srvs [CONS] Routine Reason for Case Mgmt/Social Srvs: Discharge Planning 10/22/16 22:49 Consult to Physician [CONS] Routine Comment: Consulting Provider: Naresh Ramesh Jr. Person Notified: [email or web address] Date Notified: 10/25/16 Time Notified: 10:28 Consult Notification Comment: DR. STARR SAW OVER THE WEEKEND; 10/25/16 11:41 Consult to Physician [CONS] Routine Comment: Consulting Provider: Peyman Fontana Person Notified: [email or web address] Date Notified: 10/25/16 Time Notified: 12:06 10/25/16 11:47 Consult to Physician [CONS] Routine Comment: Consulting Provider: Franklyn Clark 10/25/16 12:17 Consult to Physician [CONS] Routine Comment: GI bleed Consulting Provider: Thien Garcia Person Notified: [email or web address] Date Notified: 10/25/16 Time Notified: 12:19 10/25/16 14:28 Consult to Anesthesiology [CONS] Routine Consulting Provider: Reason for Anesthesiology: Pre-op Clearance 10/27/16 08:50 Consult to Case Mgmt/Social Srvs [CONS] Routine Reason for Case Mgmt/Social Srvs: LTAC 10/27/16 12:48 Consult to Dietitian [CONS] Routine Reason for Dietitian: TF-Initiate/Manage Dietary Consult Consult Comment: Recommendations for tube feeding Discharging clinician: Barbara Bolton MD
--- NOTE | 2016-10-28 09:17 | Family Practice Progress Note ---
Exam (Progress Note) - Constitutional Vitals: Period Temp Pulse Resp BP Sys/Tatum Pulse Ox Last 24 Hr 97.0 F-99.6 F 70-76 18-24 120-152/56-72 91-98 Results - Labs CBC & BMP: 10/28/16 05:37 10/28/16 05:37 Assessment and Plan (1) Acute renal failure Status: Acute Assessment and plan: on hemodialysis, BUN/creatinine 40/4.5 improving, will follow nephro recommendations, 2.Anemia,improving, H&H, 8.3/24.6 today , s/p blood transfusions, EGd, C scope done ,follow GI recommendations, Will reevaluate for swallowing, consult dietitian, continue IV fluids 3. h/o CVA, rt fulton's palsy, follow neuro recommendations, not on anticoagulants currently, 4. DM , stable , continue sliding scale insulin, 5.HTN stable, not on antihypertensives currently 6. Hperlipedemia, continue crestor. discussed with pt son , this AM , pt's status, Current Visit: Yes (2) Mental status change Status: Acute Current Visit: Yes (3) SEVERE HYPOGLYCEMIA Status: Resolved Current Visit: Yes (4) History of CVAs Status: Chronic Current Visit: Yes (5) Hyperlipidemia Status: Chronic Current Visit: Yes (6) Debility Status: Chronic Current Visit: Yes (7) Heme positive stool Status: Resolved Current Visit: Yes (8) Hypertension Status: Chronic Current Visit: Yes (9) Diabetes mellitus Status: Chronic Current Visit: Yes Qualifiers: Diabetes mellitus type: type 2 (10) Right-sided Fulton's palsy Status: Chronic Current Visit: Yes (11) Anemia Status: Chronic Current Visit: Yes Quality Measures - VTE Contraindication to Pharmacological VTE Prophylaxis: High Risk of Bleeding
[2016-10-28] MEDS ORDERED: SODIUM CHLOR 0.45% KCL 20 MEQ 20 MEQ/1,000 ML BAG IV SCH (10:00)
[2016-10-28] MEDS: INSULIN REGULAR 100 UNIT/ML SUBCUT SCH ×2 (11:15→14:17)
[2016-10-28 11:22] LABS: Apearance,Urine CLEAR (Clear); Bacteria,Urine Occasional /HPF (Few); Bilirubin,Urine Negative (Negative); Blood, Urine Moderate mg/dL (Negative); Glucose,Urine (UA) 50 mg/dL (Negative); Ketones,Urine 5 mg/dL (Negative); Mucus,Urine Occasional /LPF (Occasional); Nitrite,Urine Negative (Negative); Protein,Urine 30 MG/DL; RBC,Urine 59 /HPF (0-4); Urine Color Yellow (Yellow); Urine Specific Gravity 1.006 (1.001-1.035); Urine Urobilinogen < 2.0 EU/DL (0.2-1.0); WBC,Urine 5 /HPF (0-6)
[2016-10-28] MEDS: PANTOPRAZOLE 40 MG VIAL IV SCH (14:19)
[2016-10-28 14:29] VITALS: BP 149/81
--- NOTE | 2016-11-02 11:55 | Physician Query Form ---
CLICK EDIT DOCUMENT TO SELECT QUERY ANSWER --> OK --> SIGN Sarah Ye RN Clinical [employer] Work[employer] W) [phone] (f) [phone] [email or web address]: Make your selection(s) from the choices in EACH section by typing an "x" and enter comments in the comment section. Please use your independent medical judgment in providing your response. This request does not imply that any particular answer is desired or expected. CLINICAL INDICATORS: (Providers should not edit this section) Based on documentation of "Probable urinary tract infection". Urine culture showed staphylococcus haemolyticus. Urine WBC of 25. Pt. treated with PO Cipro. Diagnosis: UTI Please clarify the following: ( X) The above diagnosis was monitored, evaluated, and/or treated and is a confirmed diagnosis ( ) The above diagnosis was ruled out ( ) Other, please specify: ( ) Clinically unable to determine COMMENTS: PLEASE ALSO DOCUMENT RESPONSE IN PROGRESS NOTES AND/OR DISCHARGE SUMMARY Use of terms such as suspected, likely, or probable (associated with a specific diagnosis that is being evaluated, monitored, or treated as if it exists) are acceptable and can be restated in the discharge summary if not ruled out. [facility]
== END 2016-10-28 15:00 | DRG 682 ==
LOC: EDBD → EDUNIT# → N.ED 17:11 → N.EDINP 22:42 → N.TELES 23:55 → N.2E 10-23 00:02
PROVIDERS: ADMIT Family Medicine; ATTEND Family Medicine

== ENCOUNTER 2016-12-23 11:56 | Inpatient (IN) ==
[2016-12-23 13:08] LABS: ABG Base Excess 2.1 MMOL/L (-2.5-2.5); ABG HCO3 26.3 MMOL/L (20-26); ABG Oxygen Saturation 99.9 % (95-100); ABG PCO2 45.9 MM HG (35-48); ABG PH 7.386 (7.35-7.45); ABG TCO2 25.3 MMOL/L (23-27)
[2016-12-23 13:15] LABS: Basophils # 0.1 10*3/uL (0.0-0.2); Basophils % 0.4 % (0.0-0.8); Eosinophils # 0.1 10*3/uL (0.0-0.87); Eosinophils % 0.2 % (0.00-10.9); Hemoglobin 9.6 GM/DL (14.0-18.0); Immature Granulocytes % 0.5 %; Immature Granulocytes Absolute 0.11 #; Lymphocytes # 2.5 10*3/uL (1.4-4.0); Lymphocytes % 10.7 % (21.2-54.2); Mean Corpuscular Hemoglobin 25 PG (27-34); Mean Corpuscular Volume 84.7 FL (87-102); Mean Platelet Volume 10.7 FL (9.6-12.0); Monocytes # 1.3 10*3/uL (0.11-0.8); Monocytes % 5.5 % (1.7-12.7); Neutrophils # 19.7 10*3/uL (1.4-7.4); Neutrophils % 82.7 % (38.7-73.9); Platelet Count 519 T/CUMM (130-400); Red Blood Count 3.78 MC/CUMM (3.8-5.5); Red Cell Distribution Width 17.7 % (9.3-17.3); White Blood Count 23.8 T/CUMM (4-12)
[2016-12-23 13:22] LABS: INR 1.1; PT Patient Result 11.8 SECS; Partial Thromboplastin Time 32.5 SECS (0-40)
[2016-12-23] MEDS ORDERED: SODIUM CHLORIDE 0.9% 2,300 ML IV ONE (13:29)
[2016-12-23] MEDS ORDERED: VANCOMYCIN INJ 1,250 MG in SODIUM CHLORIDE 0.9% 250 ML IV SCH (13:30)
[2016-12-23 13:38] LABS: Alanine Aminotransferase 28 U/L (16-61); Albumin 2.2 G/DL (3.4-5.0); Alkaline Phosphatase 220 U/L (45-117); Aspartate Amino Transferase 30 U/L (0-37); Blood Urea Nitrogen 47 MG/DL (7-18); Calcium 9.5 MG/DL (8.5-10.1); Glucose 278 MG/DL (74-106); Osmolality,Calculated 309.7 MOS/KG (273-304); Potassium 5.1 MMOL/L (3.5-5.1); Sodium 145 MMOL/L (136-145); Total Protein 9.8 G/DL (6.4-8.3); Troponin I Only < 0.015 NG/ML (0.00-0.045)
[2016-12-23] MEDS ORDERED: LEVOFLOXACIN INJ 150 ML IV ONE (13:44)
[2016-12-23 13:50] LABS: Band Neutrophils 2 % (0-10); Lymphocytes 16 % (20-55); Segmented Neutrophils 79 % (50-85); Total Cells Counted 100
[2016-12-23 13:51] LABS: Anisocytosis 1+; Hypochromasia 1+
[2016-12-23 13:52] LABS: Platelet Estimate Normal
[2016-12-23] MEDS: LEVOFLOXACIN INJ 750 MG in PREMIX 1 EACH IV SCH (14:07)
[2016-12-23 14:50] LABS: Apearance,Urine CLOUDY (Clear); Bacteria,Urine Many /HPF (Few); Bilirubin,Urine Negative (Negative); Blood, Urine Small mg/dL (Negative); Glucose,Urine (UA) Negative (Negative); Hyaline Casts,Urine 2 /LPF (0-3); Ketones,Urine Negative (Negative); Mucus,Urine Occasional /LPF (Occasional); Nitrite,Urine Negative (Negative); Protein,Urine 100 MG/DL; RBC,Urine 44 /HPF (0-4); Urine Color Amber (Yellow); Urine Specific Gravity 1.017 (1.001-1.035); WBC,Urine 13 /HPF (0-6)
[2016-12-23] MEDS: VANCOMYCIN INJ 1,250 MG in SODIUM CHLORIDE 0.45% 250 ML IV SCH (17:15)
[2016-12-23] MEDS ORDERED: BISACODYL 10 MG SUPP RECTAL PRN (18:39)
[2016-12-23] MEDS ORDERED: MINERAL OIL/PETROLATUM OPH OINT 3.5 GM TUBE BOTH EYES PRN (18:39)
[2016-12-23] MEDS ORDERED: ZINC OXIDE PASTE 113 GM TUBE TOP PRN ×2 (18:39→18:40)
[2016-12-23] MEDS ORDERED: hydrALAZINE 20 MG/1 ML VIAL IV PRN (18:53)
[2016-12-23] MEDS ORDERED: GLUCAGON 1 MG VIAL IM PRN (18:53)
[2016-12-23] MEDS ORDERED: DEXTROSE 50% 25 GM/50 ML VIAL IV PRN (18:53)
[2016-12-23] MEDS ORDERED: SALIVA SUBSTITUTE SPRAY 60 ML CAN SWISH/SPIT PRN (21:00)
[2016-12-23] MEDS: METOCLOPRAMIDE 10 MG/10 ML UDCUP PEG SCH (21:50)
[2016-12-23] MEDS: MINERAL OIL/PETROLATUM OPH OINT 3.5 GM TUBE BOTH EYES SCH (21:53)
[2016-12-24] MEDS: INSULIN LISPRO 100 UNIT/ML SUBCUT SCH ×4 (00:07→18:08)
[2016-12-24] MEDS: METOCLOPRAMIDE 10 MG/10 ML UDCUP PEG SCH ×3 (05:44→20:19)
[2016-12-24 06:44] LABS: Calcium 8.7 MG/DL (8.5-10.1); Osmolality,Calculated 309.6 MOS/KG (273-304); Potassium 4.2 MMOL/L (3.5-5.1)
[2016-12-24 07:04] LABS: Basophils # 0.1 10*3/uL (0.0-0.2); Basophils % 0.2 % (0.0-0.8); Eosinophils # 0.1 10*3/uL (0.0-0.87); Eosinophils % 0.6 % (0.00-10.9); Hematocrit 26.8 VOL% (42.0-52.0); Immature Granulocytes % 0.6 %; Immature Granulocytes Absolute 0.13 #; Lymphocytes # 2.6 10*3/uL (1.4-4.0); Lymphocytes % 11.7 % (21.2-54.2); Mean Corpuscular HGB Conc 29.9 GM/DL (32-36); Mean Corpuscular Hemoglobin 26 PG (27-34); Mean Corpuscular Volume 85.4 FL (87-102); Mean Platelet Volume 10.4 FL (9.6-12.0); Monocytes # 1.1 10*3/uL (0.11-0.8); Monocytes % 5.1 % (1.7-12.7); Neutrophils # 18.3 10*3/uL (1.4-7.4); Neutrophils % 81.8 % (38.7-73.9); Platelet Count 406 T/CUMM (130-400); Red Blood Count 3.14 MC/CUMM (3.8-5.5); Red Cell Distribution Width 17.7 % (9.3-17.3); White Blood Count 22.4 T/CUMM (4-12)
[2016-12-24 07:17] LABS: Eosinophils 1 % (0-10); Lymphocytes 9 % (20-55); Metamyelocytes 2 %; Myelocytes 1 %; Segmented Neutrophils 81 % (50-85); Total Cells Counted 100
[2016-12-24 07:18] LABS: Hypochromasia 3+
[2016-12-24 07:19] LABS: Platelet Estimate Increased
[2016-12-24] MEDS: VANCOMYCIN INJ 1,250 MG in SODIUM CHLORIDE 0.45% 250 ML IV SCH ×2 (08:43→20:18)
[2016-12-24] MEDS ORDERED: PANTOPRAZOLE 40 MG TABLET PO SCH (09:00)
[2016-12-24] MEDS: LEVOFLOXACIN INJ 750 MG in PREMIX 1 EACH IV SCH (13:01)
[2016-12-24] MEDS: MINERAL OIL/PETROLATUM OPH OINT 3.5 GM TUBE BOTH EYES SCH (20:20)
[2016-12-25] MEDS: INSULIN LISPRO 100 UNIT/ML SUBCUT SCH ×4 (00:28→17:00)
[2016-12-25 05:41] LABS: Basophils % 0.2 % (0.0-0.8); Eosinophils # 0.1 10*3/uL (0.0-0.87); Eosinophils % 0.9 % (0.00-10.9); Hematocrit 25.3 VOL% (42.0-52.0); Hemoglobin 7.5 GM/DL (14.0-18.0); Immature Granulocytes % 0.5 %; Immature Granulocytes Absolute 0.08 #; Lymphocytes # 2.7 10*3/uL (1.4-4.0); Lymphocytes % 16.5 % (21.2-54.2); Mean Corpuscular HGB Conc 29.6 GM/DL (32-36); Mean Corpuscular Hemoglobin 25 PG (27-34); Mean Corpuscular Volume 84.6 FL (87-102); Mean Platelet Volume 10.5 FL (9.6-12.0); Monocytes % 6.5 % (1.7-12.7); Neutrophils # 12.1 10*3/uL (1.4-7.4); Neutrophils % 75.4 % (38.7-73.9); Platelet Count 390 T/CUMM (130-400); Red Blood Count 2.99 MC/CUMM (3.8-5.5); Red Cell Distribution Width 17.2 % (9.3-17.3); White Blood Count 16.1 T/CUMM (4-12)
[2016-12-25] MEDS: METOCLOPRAMIDE 10 MG/10 ML UDCUP PEG SCH ×3 (06:13→21:29)
[2016-12-25 06:14] LABS: Calcium 8.9 MG/DL (8.5-10.1); Magnesium 2.2 MG/DL (1.8-2.4); Osmolality,Calculated 311.9 MOS/KG (273-304); Potassium 3.6 MMOL/L (3.5-5.1)
[2016-12-25] MEDS: VANCOMYCIN INJ 1,250 MG in SODIUM CHLORIDE 0.45% 250 ML IV SCH (08:08)
[2016-12-25] MEDS ORDERED: PANTOPRAZOLE 40 MG VIAL IV SCH (09:00)
[2016-12-25] MEDS ORDERED: INFLUENZA VIRUS VACCINE 0.5 ML SYRINGE IM ONE (09:00)
[2016-12-25] MEDS: BACITRACIN OINT 0.9 GM PACK TOP SCH ×2 (10:13→21:42)
[2016-12-25] MEDS: LEVOFLOXACIN INJ 750 MG in PREMIX 1 EACH IV SCH (13:25)
[2016-12-25] MEDS: VANCOMYCIN INJ 1,250 MG in SODIUM CHLORIDE 0.9% 250 ML IV SCH (13:33)
[2016-12-25 17:27] LABS: Hematocrit 24.6 VOL% (42.0-52.0); Hemoglobin 7.4 GM/DL (14.0-18.0)
[2016-12-25] MEDS: PANTOPRAZOLE 40 MG VIAL IV SCH (21:29)
[2016-12-25] MEDS: MINERAL OIL/PETROLATUM OPH OINT 3.5 GM TUBE BOTH EYES SCH (21:42)
[2016-12-26] MEDS: INSULIN LISPRO 100 UNIT/ML SUBCUT SCH ×5 (01:14→23:28)
[2016-12-26] MEDS: METOCLOPRAMIDE 10 MG/10 ML UDCUP PEG SCH ×3 (06:35→22:02)
[2016-12-26 06:38] LABS: Basophils % 0.2 % (0.0-0.8); Eosinophils # 0.1 10*3/uL (0.0-0.87); Eosinophils % 0.3 % (0.00-10.9); Hematocrit 25.5 VOL% (42.0-52.0); Hemoglobin 7.8 GM/DL (14.0-18.0); Immature Granulocytes % 0.7 %; Immature Granulocytes Absolute 0.11 #; Lymphocytes # 2.9 10*3/uL (1.4-4.0); Lymphocytes % 17.4 % (21.2-54.2); Mean Corpuscular HGB Conc 30.6 GM/DL (32-36); Mean Corpuscular Hemoglobin 25 PG (27-34); Mean Corpuscular Volume 83.1 FL (87-102); Monocytes % 6.3 % (1.7-12.7); Neutrophils # 12.3 10*3/uL (1.4-7.4); Neutrophils % 75.1 % (38.7-73.9); Platelet Count 387 T/CUMM (130-400); Red Blood Count 3.07 MC/CUMM (3.8-5.5); Red Cell Distribution Width 17.2 % (9.3-17.3); White Blood Count 16.4 T/CUMM (4-12)
[2016-12-26 07:02] LABS: Calcium 8.6 MG/DL (8.5-10.1); Magnesium 1.9 MG/DL (1.8-2.4); Osmolality,Calculated 306.3 MOS/KG (273-304); Potassium 3.4 MMOL/L (3.5-5.1)
[2016-12-26 07:05] LABS: Hypochromasia 1+
[2016-12-26 07:07] LABS: Calcium 8.7 MG/DL (8.5-10.1); Magnesium 1.9 MG/DL (1.8-2.4); Osmolality,Calculated 308.1 MOS/KG (273-304); Phosphorous 2.4 MG/DL (2.5-4.9); Potassium 3.4 MMOL/L (3.5-5.1); Prealbumin 8.5 MG/DL (20-40)
[2016-12-26] MEDS ORDERED: POTASSIUM CHLORIDE 20 MEQ/15 ML UDCUP PO ONE (08:37)
[2016-12-26] MEDS: PANTOPRAZOLE 40 MG VIAL IV SCH ×2 (08:43→22:02)
[2016-12-26] MEDS: VANCOMYCIN INJ 1,250 MG in SODIUM CHLORIDE 0.9% 250 ML IV SCH (08:50)
[2016-12-26] MEDS: LEVOFLOXACIN INJ 750 MG in PREMIX 1 EACH IV SCH (15:10)
[2016-12-26 16:30] LABS: Hematocrit 24.4 VOL% (42.0-52.0); Hemoglobin 7.3 GM/DL (14.0-18.0)
[2016-12-26] MEDS: POLYETHYLENE GLYCOL POWDER 17 GM PACK PEG SCH (22:03)
[2016-12-26] MEDS: MINERAL OIL/PETROLATUM OPH OINT 3.5 GM TUBE BOTH EYES SCH (22:04)
[2016-12-27] MEDS: VANCOMYCIN INJ 1,250 MG in SODIUM CHLORIDE 0.45% 250 ML IV SCH ×2 (01:32→20:57)
[2016-12-27] MEDS: METOCLOPRAMIDE 10 MG/10 ML UDCUP PEG SCH ×3 (06:00→20:57)
[2016-12-27] MEDS: INSULIN LISPRO 100 UNIT/ML SUBCUT SCH ×3 (06:35→18:05)
[2016-12-27] MEDS: PANTOPRAZOLE 40 MG VIAL IV SCH ×2 (09:10→20:57)
[2016-12-27 10:01] LABS: Hemoglobin 7.2 GM/DL (14.0-18.0)
[2016-12-27 10:43] LABS: Calcium 8.1 MG/DL (8.5-10.1); Osmolality,Calculated 309.6 MOS/KG (273-304); Potassium 3.5 MMOL/L (3.5-5.1)
[2016-12-27] MEDS: POLYETHYLENE GLYCOL POWDER 17 GM PACK PEG SCH (12:38)
[2016-12-27 13:39] LABS: Basophils # 0.1 10*3/uL (0.0-0.2); Basophils % 0.3 % (0.0-0.8); Eosinophils # 0.1 10*3/uL (0.0-0.87); Eosinophils % 0.5 % (0.00-10.9); Hematocrit 25.8 VOL% (42.0-52.0); Hemoglobin 7.7 GM/DL (14.0-18.0); Immature Granulocytes % 0.5 %; Lymphocytes # 2.6 10*3/uL (1.4-4.0); Lymphocytes % 13.7 % (21.2-54.2); Mean Corpuscular HGB Conc 29.8 GM/DL (32-36); Mean Corpuscular Hemoglobin 25 PG (27-34); Mean Corpuscular Volume 83.2 FL (87-102); Mean Platelet Volume 11.5 FL (9.6-12.0); Monocytes % 5.5 % (1.7-12.7); Neutrophils # 15.1 10*3/uL (1.4-7.4); Neutrophils % 79.5 % (38.7-73.9); Platelet Count 341 T/CUMM (130-400); Red Cell Distribution Width 17.1 % (9.3-17.3)
[2016-12-27 13:40] LABS: HSV Ab Screen IgM by EIA Negative (Negative)
[2016-12-27] MEDS: LEVOFLOXACIN INJ 750 MG in PREMIX 1 EACH IV SCH (15:00)
[2016-12-27] MEDS: FERROUS SULFATE 300 MG/5 ML UDCUP PO SCH (20:57)
[2016-12-27] MEDS ORDERED: POLYETHYLENE GLYCOL POWDER 17 GM PACK PEG SCH (21:00)
[2016-12-27] MEDS: MINERAL OIL/PETROLATUM OPH OINT 3.5 GM TUBE BOTH EYES SCH (21:13)
[2016-12-28] MEDS: INSULIN LISPRO 100 UNIT/ML SUBCUT SCH ×3 (00:29→12:27)
[2016-12-28] MEDS: METOCLOPRAMIDE 10 MG/10 ML UDCUP PEG SCH ×2 (06:13→12:07)
[2016-12-28 07:22] LABS: Basophils % 0.2 % (0.0-0.8); Eosinophils # 0.2 10*3/uL (0.0-0.87); Hematocrit 24.6 VOL% (42.0-52.0); Hemoglobin 7.5 GM/DL (14.0-18.0); Immature Granulocytes % 0.6 %; Lymphocytes # 2.3 10*3/uL (1.4-4.0); Lymphocytes % 13.8 % (21.2-54.2); Mean Corpuscular HGB Conc 30.5 GM/DL (32-36); Mean Corpuscular Hemoglobin 25 PG (27-34); Mean Corpuscular Volume 82.3 FL (87-102); Mean Platelet Volume 11.6 FL (9.6-12.0); Monocytes # 0.8 10*3/uL (0.11-0.8); Monocytes % 4.9 % (1.7-12.7); Neutrophils # 13.2 10*3/uL (1.4-7.4); Neutrophils % 79.5 % (38.7-73.9); Platelet Count 339 T/CUMM (130-400); Red Blood Count 2.99 MC/CUMM (3.8-5.5); Red Cell Distribution Width 17.1 % (9.3-17.3); White Blood Count 16.6 T/CUMM (4-12)
[2016-12-28 07:51] LABS: Calcium 8.5 MG/DL (8.5-10.1); Magnesium 1.9 MG/DL (1.8-2.4); Osmolality,Calculated 304.6 MOS/KG (273-304); Potassium 3.2 MMOL/L (3.5-5.1)
[2016-12-28 08:25] LABS: Eosinophils 5 % (0-10); Hypochromasia 1+; Lymphocytes 14 % (20-55); Microcytosis 1+; Myelocytes 1 %; Segmented Neutrophils 78 % (50-85); Total Cells Counted 100
[2016-12-28 08:26] LABS: Platelet Estimate Normal
[2016-12-28] MEDS: PANTOPRAZOLE 40 MG VIAL IV SCH (10:49)
[2016-12-28] MEDS: FERROUS SULFATE 300 MG/5 ML UDCUP PO SCH (10:50)
[2016-12-28] MEDS ORDERED: MULTIVITAMIN LIQUID (CENTRUM) 60 ML BOTTLE PO SCH (11:30)
[2016-12-28 12:53] VITALS: BP 132/79
[2016-12-28] MEDS ORDERED: POTASSIUM CHLORIDE 20 MEQ/15 ML UDCUP PER TUBE ONE (14:00)
== END 2016-12-28 13:54 | DRG 689 ==
LOC: EDBD → EDUNIT# → N.ED 11:56 → N.EDINP 13:39 → N.5E 18:04
PROVIDERS: ADMIT Family Medicine; ATTEND Family Medicine

== ENCOUNTER 2017-01-20 11:20 | Inpatient (IN) ==
[2017-01-20] MEDS ORDERED: SODIUM CHLORIDE 0.9% 1,000 ML IV STA (12:06)
[2017-01-20 12:29] LABS: Basophils % 0.3 % (0.0-0.8); Eosinophils # 0.4 10*3/uL (0.0-0.87); Eosinophils % 2.5 % (0.00-10.9); Hemoglobin 10.1 GM/DL (14.0-18.0); Immature Granulocytes % 0.6 %; Immature Granulocytes Absolute 0.09 #; Lymphocytes # 4.8 10*3/uL (1.4-4.0); Lymphocytes % 34.1 % (21.2-54.2); Mean Corpuscular HGB Conc 29.7 GM/DL (32-36); Mean Corpuscular Hemoglobin 26 PG (27-34); Mean Corpuscular Volume 86.7 FL (87-102); Mean Platelet Volume 12.3 FL (9.6-12.0); Monocytes # 0.5 10*3/uL (0.11-0.8); Monocytes % 3.8 % (1.7-12.7); NRBC # 0.02 10*3/uL; Neutrophils # 8.3 10*3/uL (1.4-7.4); Neutrophils % 58.7 % (38.7-73.9); Platelet Count 426 T/CUMM (130-400); Red Blood Count 3.92 MC/CUMM (3.8-5.5); Red Cell Distribution Width 18.2 % (9.3-17.3); White Blood Count 14.1 T/CUMM (4-12)
[2017-01-20 12:36] LABS: Ammonia 12 UMOL/L (11-32)
[2017-01-20 13:00] LABS: Alanine Aminotransferase 28 U/L (16-61); Albumin 1.8 G/DL (3.4-5.0); Alkaline Phosphatase 253 U/L (45-117); Aspartate Amino Transferase 52 U/L (0-37); Blood Urea Nitrogen 44 MG/DL (7-18); Calcium 9.5 MG/DL (8.5-10.1); Glucose 309 MG/DL (74-106); Magnesium 2.7 MG/DL (1.8-2.4); Osmolality,Calculated 323.7 MOS/KG (273-304); Potassium 4.8 MMOL/L (3.5-5.1); Sodium 152 MMOL/L (136-145); Total Protein 8.9 G/DL (6.4-8.3); Troponin I Only < 0.015 NG/ML (0.00-0.045)
[2017-01-20 13:09] LABS: Apearance,Urine Slightly Hazy (Clear); Bacteria,Urine Occasional /HPF (Few); Bilirubin,Urine Negative (Negative); Blood, Urine Negative (Negative); Glucose,Urine (UA) Negative (Negative); Hyaline Casts,Urine 2 /LPF (0-3); Ketones,Urine Negative (Negative); Mucus,Urine Occasional /LPF (Occasional); Nitrite,Urine Negative (Negative); Protein,Urine 100 MG/DL; RBC,Urine 27 /HPF (0-4); Squamous Epithelial Cell,Urine Occasional /HPF (0-10); Urine Color Yellow (Yellow); Urine Specific Gravity 1.015 (1.001-1.035); WBC,Urine 23 /HPF (0-6)
[2017-01-20 13:35] LABS: Hypochromasia 1+; Platelet Estimate Adequate
[2017-01-20] MEDS ORDERED: LEVOFLOXACIN INJ 100 ML IV ONE (15:40)
[2017-01-20] MEDS: LEVOFLOXACIN INJ 500 MG in PREMIX 1 EACH IV SCH (15:48)
[2017-01-20] MEDS ORDERED: ONDANSETRON 4 MG/2 ML VIAL IV PRN (17:43)
[2017-01-20] MEDS: SODIUM CHLORIDE 0.45% 1,000 ML IV SCH (18:02)
[2017-01-21] MEDS ORDERED: MINERAL OIL/PETROLATUM OPH OINT 3.5 GM TUBE BOTH EYES PRN (00:04)
[2017-01-21] MEDS ORDERED: ZINC OXIDE PASTE 113 GM TUBE TOP PRN (00:04)
[2017-01-21] MEDS ORDERED: DEXTROSE 50% 25 GM/50 ML VIAL IV PRN (00:06)
[2017-01-21] MEDS ORDERED: GLUCAGON 1 MG VIAL IM PRN (00:06)
[2017-01-21 05:47] LABS: Basophils % 0.2 % (0.0-0.8); Eosinophils # 0.3 10*3/uL (0.0-0.87); Hemoglobin 10.1 GM/DL (14.0-18.0); Immature Granulocytes % 0.5 %; Immature Granulocytes Absolute 0.08 #; Lymphocytes % 18.5 % (21.2-54.2); Mean Corpuscular HGB Conc 29.7 GM/DL (32-36); Mean Corpuscular Hemoglobin 26 PG (27-34); Mean Corpuscular Volume 87.2 FL (87-102); Mean Platelet Volume 12.7 FL (9.6-12.0); Monocytes # 0.8 10*3/uL (0.11-0.8); Neutrophils # 12.1 10*3/uL (1.4-7.4); Neutrophils % 73.8 % (38.7-73.9); Platelet Count 312 T/CUMM (130-400); White Blood Count 16.3 T/CUMM (4-12)
[2017-01-21 05:54] LABS: Magnesium 2.4 MG/DL (1.8-2.4); Osmolality,Calculated 317.7 MOS/KG (273-304); Potassium 4.4 MMOL/L (3.5-5.1)
[2017-01-21 06:05] LABS: Hypochromasia 1+
[2017-01-21 06:10] LABS: Microcytosis 1+; Platelet Estimate Normal
[2017-01-21] MEDS: SODIUM CHLORIDE 0.45% 1,000 ML IV SCH (07:20)
[2017-01-21] MEDS: METOCLOPRAMIDE 10 MG TABLET PEG SCH ×3 (07:24→21:56)
[2017-01-21] MEDS ORDERED: INSULIN REGULAR 100 UNIT/ML SUBCUT SCH (07:30)
[2017-01-21] MEDS: SALIVA SUBSTITUTE SPRAY 60 ML CAN SWISH/SPIT SCH ×3 (09:11→21:58)
[2017-01-21] MEDS: PANTOPRAZOLE 40 MG TABLET PO SCH ×2 (09:11→21:57)
[2017-01-21] MEDS: FERROUS SULFATE 300 MG/5 ML UDCUP PEG SCH ×2 (09:11→21:57)
[2017-01-21] MEDS: INSULIN REGULAR 100 UNIT/ML SUBCUT SCH ×4 (09:11→18:02)
[2017-01-21] MEDS: MULTIVITAMIN LIQUID (CENTRUM) 60 ML BOTTLE PEG SCH (09:12)
[2017-01-21] MEDS: LEVOFLOXACIN INJ 500 MG in PREMIX 1 EACH IV SCH (14:48)
[2017-01-21] MEDS: MINERAL OIL/PETROLATUM OPH OINT 3.5 GM TUBE BOTH EYES SCH (21:58)
[2017-01-22] MEDS: INSULIN REGULAR 100 UNIT/ML SUBCUT SCH ×4 (01:30→18:06)
[2017-01-22] MEDS: METOCLOPRAMIDE 10 MG TABLET PEG SCH ×3 (05:55→22:39)
[2017-01-22] MEDS: SODIUM CHLORIDE 0.45% 1,000 ML IV SCH (05:56)
[2017-01-22] MEDS: MULTIVITAMIN LIQUID (CENTRUM) 60 ML BOTTLE PEG SCH (09:38)
[2017-01-22] MEDS: PANTOPRAZOLE 40 MG TABLET PO SCH ×2 (09:38→22:40)
[2017-01-22] MEDS: FERROUS SULFATE 300 MG/5 ML UDCUP PEG SCH ×2 (09:38→22:40)
[2017-01-22] MEDS: SALIVA SUBSTITUTE SPRAY 60 ML CAN SWISH/SPIT SCH ×3 (09:39→22:41)
[2017-01-22] MEDS: LEVOFLOXACIN INJ 500 MG in PREMIX 1 EACH IV SCH (13:43)
[2017-01-22] MEDS: MINERAL OIL/PETROLATUM OPH OINT 3.5 GM TUBE BOTH EYES SCH (22:41)
[2017-01-23] MEDS: SODIUM CHLORIDE 0.45% 1,000 ML IV SCH ×3 (00:02→16:00)
[2017-01-23] MEDS: INSULIN REGULAR 100 UNIT/ML SUBCUT SCH ×4 (00:54→18:29)
[2017-01-23] MEDS: METOCLOPRAMIDE 10 MG TABLET PEG SCH ×4 (06:45→23:34)
[2017-01-23 07:10] LABS: Calcium 8.7 MG/DL (8.5-10.1); Osmolality,Calculated 294.1 MOS/KG (273-304); Phosphorous 2.9 MG/DL (2.5-4.9); Potassium 4.2 MMOL/L (3.5-5.1); Prealbumin 8.9 MG/DL (20-40)
[2017-01-23 08:57] LABS: Basophils % 0.4 % (0.0-0.8); Eosinophils # 0.3 10*3/uL (0.0-0.87); Eosinophils % 2.3 % (0.00-10.9); Hematocrit 31.4 VOL% (42.0-52.0); Hemoglobin 9.5 GM/DL (14.0-18.0); Immature Granulocytes % 1.1 %; Immature Granulocytes Absolute 0.12 #; Lymphocytes # 3.3 10*3/uL (1.4-4.0); Mean Corpuscular HGB Conc 30.3 GM/DL (32-36); Mean Corpuscular Hemoglobin 26 PG (27-34); Mean Corpuscular Volume 84.4 FL (87-102); Mean Platelet Volume 12.8 FL (9.6-12.0); Monocytes # 0.7 10*3/uL (0.11-0.8); Monocytes % 6.7 % (1.7-12.7); Neutrophils # 6.6 10*3/uL (1.4-7.4); Neutrophils % 59.5 % (38.7-73.9); Platelet Count 300 T/CUMM (130-400); Red Blood Count 3.72 MC/CUMM (3.8-5.5); Red Cell Distribution Width 17.7 % (9.3-17.3); White Blood Count 11.1 T/CUMM (4-12)
[2017-01-23] MEDS ORDERED: SKIN HEALING OINT (AQUAPHOR) 50 GM TUBE TOP PRN (10:32)
[2017-01-23] MEDS: MULTIVITAMIN LIQUID (CENTRUM) 60 ML BOTTLE PEG SCH (11:06)
[2017-01-23] MEDS: FERROUS SULFATE 300 MG/5 ML UDCUP PEG SCH ×3 (11:07→23:35)
[2017-01-23] MEDS: LEVOFLOXACIN INJ 500 MG in PREMIX 1 EACH IV SCH (11:07)
[2017-01-23] MEDS: PANTOPRAZOLE 40 MG TABLET PO SCH ×3 (11:08→23:34)
[2017-01-23] MEDS: SALIVA SUBSTITUTE SPRAY 60 ML CAN SWISH/SPIT SCH ×3 (11:08→23:34)
[2017-01-23] MEDS ORDERED: TUBERCULIN SKIN TEST 0.1 ML SYRINGE INTRADERM ONE (14:00)
[2017-01-23 16:04] LABS: Apearance,Urine Slightly Hazy (Clear); Bilirubin,Urine Negative (Negative); Blood, Urine Negative (Negative); Glucose,Urine (UA) Negative (Negative); Ketones,Urine Negative (Negative); Nitrite,Urine Negative (Negative); Protein,Urine 100 MG/DL; RBC,Urine 13 /HPF (0-4); Urine Color Yellow (Yellow); Urine Specific Gravity 1.012 (1.001-1.035); WBC,Urine 19 /HPF (0-6)
[2017-01-23] MEDS: LINEZOLID INJ 600 MG in PREMIX 1 EACH IV SCH (18:29)
[2017-01-23 20:29] LABS: HIV Antigen/Antibody Result Nonreactive (Nonreactive); Hepatitis B Surface Ag Quant < 0.10 Index; Hepatitis B Surface Ag Result Negative (Negative); Hepatitis C Virus Ab Quant 0.44 Index; Hepatitis C Virus Ab Result Negative (Negative)
[2017-01-23] MEDS: MINERAL OIL/PETROLATUM OPH OINT 3.5 GM TUBE BOTH EYES SCH (23:34)
[2017-01-24] MEDS: INSULIN REGULAR 100 UNIT/ML SUBCUT SCH ×4 (01:29→18:01)
[2017-01-24] MEDS: LINEZOLID INJ 600 MG in PREMIX 1 EACH IV SCH (06:41)
[2017-01-24] MEDS: METOCLOPRAMIDE 10 MG TABLET PEG SCH ×3 (06:42→22:43)
[2017-01-24 06:53] LABS: Basophils % 0.3 % (0.0-0.8); Eosinophils # 0.3 10*3/uL (0.0-0.87); Eosinophils % 2.3 % (0.00-10.9); Hematocrit 30.5 VOL% (42.0-52.0); Hemoglobin 9.4 GM/DL (14.0-18.0); Immature Granulocytes % 1.1 %; Immature Granulocytes Absolute 0.14 #; Lymphocytes # 3.3 10*3/uL (1.4-4.0); Lymphocytes % 26.9 % (21.2-54.2); Mean Corpuscular HGB Conc 30.8 GM/DL (32-36); Mean Corpuscular Hemoglobin 26 PG (27-34); Mean Corpuscular Volume 82.7 FL (87-102); Mean Platelet Volume 12.4 FL (9.6-12.0); Monocytes # 0.9 10*3/uL (0.11-0.8); Monocytes % 7.2 % (1.7-12.7); Neutrophils # 7.7 10*3/uL (1.4-7.4); Neutrophils % 62.2 % (38.7-73.9); Platelet Count 279 T/CUMM (130-400); Red Blood Count 3.69 MC/CUMM (3.8-5.5); Red Cell Distribution Width 17.6 % (9.3-17.3); White Blood Count 12.4 T/CUMM (4-12)
[2017-01-24 07:01] LABS: Calcium 8.7 MG/DL (8.5-10.1); Magnesium 1.8 MG/DL (1.8-2.4); Osmolality,Calculated 285.7 MOS/KG (273-304); Potassium 4.1 MMOL/L (3.5-5.1)
[2017-01-24 07:21] LABS: Band Neutrophils 3 % (0-10); Eosinophils 4 % (0-10); Giant Platelets Few; Hypochromasia 1+; Lymphocytes 22 % (20-55); Microcytosis Slight; Platelet Estimate Adequate; Segmented Neutrophils 65 % (50-85); Total Cells Counted 100
[2017-01-24] MEDS ORDERED: PANTOPRAZOLE 40 MG VIAL IV SCH (09:00)
[2017-01-24] MEDS: LANSOPRAZOLE ODT 30 MG TABLET PO SCH ×2 (09:10→22:42)
[2017-01-24] MEDS: SALIVA SUBSTITUTE SPRAY 60 ML CAN SWISH/SPIT SCH ×3 (09:10→22:58)
[2017-01-24] MEDS: MULTIVITAMIN LIQUID (CENTRUM) 60 ML BOTTLE PEG SCH (09:11)
[2017-01-24] MEDS: FERROUS SULFATE 300 MG/5 ML UDCUP PEG SCH ×2 (09:11→22:42)
[2017-01-24] MEDS: LEVOFLOXACIN INJ 500 MG in PREMIX 1 EACH IV SCH (09:11)
[2017-01-24] MEDS: SODIUM CHLORIDE 0.45% 1,000 ML IV SCH ×2 (14:40→17:53)
[2017-01-24] MEDS: MINERAL OIL/PETROLATUM OPH OINT 3.5 GM TUBE BOTH EYES SCH (22:58)
[2017-01-25] MEDS: INSULIN REGULAR 100 UNIT/ML SUBCUT SCH ×4 (00:39→18:24)
[2017-01-25] MEDS: METOCLOPRAMIDE 10 MG TABLET PEG SCH ×2 (06:31→10:16)
[2017-01-25 06:36] LABS: Basophils % 0.4 % (0.0-0.8); Eosinophils # 0.2 10*3/uL (0.0-0.87); Eosinophils % 2.1 % (0.00-10.9); Hematocrit 29.7 VOL% (42.0-52.0); Hemoglobin 9.2 GM/DL (14.0-18.0); Immature Granulocytes % 1.1 %; Immature Granulocytes Absolute 0.12 #; Lymphocytes # 2.9 10*3/uL (1.4-4.0); Lymphocytes % 25.8 % (21.2-54.2); Mean Corpuscular Hemoglobin 25 PG (27-34); Mean Platelet Volume 12.6 FL (9.6-12.0); Monocytes % 8.6 % (1.7-12.7); Platelet Count 297 T/CUMM (130-400); Red Blood Count 3.62 MC/CUMM (3.8-5.5); Red Cell Distribution Width 17.6 % (9.3-17.3); White Blood Count 11.2 T/CUMM (4-12)
[2017-01-25 07:00] LABS: Band Neutrophils 1 % (0-10); Hypochromasia 1+; Lymphocytes 26 % (20-55); Microcytosis 1+; Platelet Estimate Normal; Segmented Neutrophils 64 % (50-85); Total Cells Counted 100
[2017-01-25] MEDS: LEVOFLOXACIN INJ 500 MG in PREMIX 1 EACH IV SCH (10:14)
[2017-01-25] MEDS: SALIVA SUBSTITUTE SPRAY 60 ML CAN SWISH/SPIT SCH ×2 (10:15→15:36)
[2017-01-25] MEDS: MULTIVITAMIN LIQUID (CENTRUM) 60 ML BOTTLE PEG SCH (10:16)
[2017-01-25] MEDS: FERROUS SULFATE 300 MG/5 ML UDCUP PEG SCH (10:16)
[2017-01-25] MEDS: LANSOPRAZOLE ODT 30 MG TABLET PO SCH (10:16)
[2017-01-25] MEDS: SODIUM CHLORIDE 0.45% 1,000 ML IV SCH (17:02)
[2017-01-25 17:08] VITALS: BP 110/66
[2017-01-25] MEDS ORDERED: FOSFOMYCIN 3 GM PACK PEG ONE (17:30)
== END 2017-01-25 19:10 | DRG 193 ==
LOC: EDUNIT# → EDBD → N.ED 11:20 → N.EDINP 13:35 → N.2E 18:44
PROVIDERS: ADMIT Family Medicine; ATTEND Family Medicine